=== PATIENT | male | born 1955 | race Caucasian/White ===

== ENCOUNTER 2020-04-14 08:04 | Outpatient (REF) | payer OTHER, SELFPAY ==
[2020-04-14 08:54] LABS: Basophils Absolute Auto 0.1 X10*3/uL (0.0-0.2); Eosinophils Absolute Auto 0.2 X10*3/uL (0.0-0.4); Eosinophils Percent Auto 4.8 % (0-4); Hematocrit 40.1 % (42-52); Hemoglobin 12.9 g/dl (14.0-18.0); Imm Gran Abs Auto 0.01 X10*3/uL (0.00-0.03); Imm Gran Pct Auto 0.2 % (0.0-0.4); Lymphocytes Absolute Auto 1.1 X10*3/uL (1.2-4.9); Lymphocytes Percent Auto 22.2 % (20-40); MANUAL DIFF FLAG NO; Mean Corpuscular HGB Conc 32.2 g/dl (31.0-36.0); Mean Corpuscular Hemoglobin 29.1 pg (27.0-33.0); Mean Corpuscular Volume 90.3 fL (80-98); Mean Platelet Volume 10.4 fL (9.4-12.4); Monocytes Absolute Auto 0.3 X10*3/uL (0.1-1.2); Monocytes Percent Auto 6.3 % (2-11); Neutrophils Absolute Auto 3.3 X10*3/uL (2.0-8.3); Neutrophils Percent Auto 64.5 % (45-73); Platelet Count 273 X10*3/uL (160-400); Red Blood Count 4.44 X10*6/uL (4.60-5.80); Red Cell Distribution Width 13.6 % (11.0-16.0); White Blood Count 5.1 X10*3/uL (4.8-10.8)
[2020-04-14 08:56] LABS: Glucose Urine UA NEG (NEG); Leukocyte Esterase Urine NEG (NEG); Nitrite Urine NEG (NEG); Specific Gravity - Urine 1.025 (1.005-1.025); Urine Blood TRACE (NEG); Urine Ketones NEG (NEG); Urine Protein NEG (NEG-TRACE)
[2020-04-14 09:00] LABS: Appearance Urine CLEAR; Color Urine YELLOW
[2020-04-14 09:05] LABS: Estimated Average Glucose 100 mg/dL; Hemoglobin A1c % 5.1 %
[2020-04-14 09:09] LABS: RBC Urine 0-2 /HPF (0); Squamous Epithelial Cell Urine TRACE /LPF; WBC Urine 0 /HPF (0-4)
[2020-04-14 09:31] LABS: Alanine Aminotransferase 9 U/L (0-40); Albumin Level 4.5 g/dL (3.5-5.0); Alkaline Phosphatase 91 U/L (39-117); Anion Gap 11 (12-20); Aspartate Amino Transferase 11 U/L (5-37); Bilirubin Total 0.9 mg/dL (0.0-1.0); Blood Urea Nitrogen 21 mg/dL (9-16); Calcium 9.4 mg/dL (8.4-10.2); Carbon Dioxide 25 mmol/L (22-29); Chloride 111 mmol/L (96-108); Cholesterol 187 mg/dL; Estimated Glomerular Filt Rate > 60; Glucose Fasting 112 mg/dL (60-99); HDL Cholesterol 39 mg/dL; LDL Cholesterol Calculated 127 mg/dl; Potassium 4.1 mmol/l (3.3-5.1); Sodium 143 mmol/L (135-145); Total Protein 6.6 g/dL (6.5-8.0); Triglycerides 107 mg/dL
[2020-04-14 09:45] LABS: TSH reflex Free T4 0.77 mIU/mL (0.32-4.0)
[2020-04-16 05:40] LABS: Folate 15.6 ng/mL (> or = 4.0); Vitamin B12 1440 pg/mL (200-900)
== END 2020-04-14 08:05 | disposition home or self-care (01) ==
LOC: HO.LAB 08:04
PROVIDERS: PCP Internal Medicine; Visit Provider Internal Medicine
DX: I10 Essential (primary) hypertension (principal); E78.5 Hyperlipidemia, unspecified; R73.01 Impaired fasting glucose; G62.9 Polyneuropathy, unspecified; E53.8 Deficiency of other specified B group vitamins; H44.9 Unspecified disorder of globe; K29.50 Unspecified chronic gastritis without bleeding; E66.3 Overweight
CPT/HCPCS: 36415; 80053; 80061; 81001; 82607; 82746; 83036; 84443; 85025

== ENCOUNTER 2020-05-07 11:23 | Outpatient (REF) | payer OTHER, SELFPAY | END 2020-05-07 11:24 | disposition home or self-care (01) | LOC: HO.LAB 11:23 | PROVIDERS: PCP Internal Medicine; Visit Provider Internal Medicine | DX: Z20.828 Contact with and (suspected) exposure to other viral communicable diseases (principal) | CPT/HCPCS: C9803; U0003 ==

== ENCOUNTER → 2020-07-16 09:57 | Outpatient (BNVA) | payer OTHER, SELFPAY | PROVIDERS: PCP Internal Medicine; Visit Provider Internal Medicine Gastroenterology ==

== ENCOUNTER 2020-09-29 09:03 | Outpatient (REF) | payer OTHER, SELFPAY ==
[2020-09-29 09:42] LABS: MANUAL DIFF FLAG NO
[2020-09-29 09:50] LABS: Basophils Absolute Auto 0.1 X10*3/uL (0.0-0.2); Basophils Percent Auto 1.4 % (0-2); Eosinophils Absolute Auto 0.2 X10*3/uL (0.0-0.4); Eosinophils Percent Auto 2.4 % (0-4); Hemoglobin 13.6 g/dl (14.0-18.0); Imm Gran Abs Auto 0.01 X10*3/uL (0.00-0.03); Imm Gran Pct Auto 0.2 % (0.0-0.4); Lymphocytes Absolute Auto 1.1 X10*3/uL (1.2-4.9); Lymphocytes Percent Auto 16.8 % (20-40); Mean Corpuscular HGB Conc 33.2 g/dl (31.0-36.0); Mean Corpuscular Hemoglobin 28.8 pg (27.0-33.0); Mean Corpuscular Volume 86.9 fL (80-98); Mean Platelet Volume 10.7 fL (9.4-12.4); Monocytes Absolute Auto 0.4 X10*3/uL (0.1-1.2); Monocytes Percent Auto 5.5 % (2-11); Neutrophils Absolute Auto 4.8 X10*3/uL (2.0-8.3); Neutrophils Percent Auto 73.7 % (45-73); Platelet Count 281 X10*3/uL (160-400); Red Blood Count 4.72 X10*6/uL (4.60-5.80); Red Cell Distribution Width 13.3 % (11.0-16.0); White Blood Count 6.6 X10*3/uL (4.8-10.8)
[2020-09-29 10:24] LABS: Alanine Aminotransferase 8 U/L (0-40); Alkaline Phosphatase 93 U/L (39-117); Anion Gap 10 (12-20); Aspartate Amino Transferase 12 U/L (5-37); Bilirubin Total 0.5 mg/dL (0.0-1.0); Blood Urea Nitrogen 18 mg/dL (9-16); Calcium 9.2 mg/dL (8.4-10.2); Carbon Dioxide 27 mmol/L (22-29); Chloride 109 mmol/L (96-108); Cholesterol 194 mg/dL; Estimated Glomerular Filt Rate > 60; Glucose Fasting 109 mg/dL (60-99); HDL Cholesterol 43 mg/dL; LDL Cholesterol Calculated 124 mg/dl; Potassium 4.3 mmol/L (3.3-5.1); Sodium 142 mmol/L (135-145); Total Protein 6.4 g/dL (6.5-8.0); Triglycerides 138 mg/dL
[2020-09-29 10:35] LABS: Glucose Urine UA NEG (NEG); Leukocyte Esterase Urine NEG (NEG); Nitrite Urine NEG (NEG); Urine Blood TRACE (NEG); Urine Ketones NEG (NEG); Urine Protein NEG (NEG-TRACE)
[2020-09-29 10:36] LABS: Appearance Urine CLEAR; Color Urine YELLOW
[2020-09-29 10:46] LABS: TSH reflex Free T4 0.96 uIU/mL (0.32-4.0)
[2020-09-29 10:48] LABS: RBC Urine 0-2 /HPF (0); Squamous Epithelial Cell Urine TRACE /LPF; WBC Urine 0 /HPF (0-4)
[2020-10-01 04:21] LABS: Folate > 20.0 ng/mL (> or = 4.0); Vitamin B12 972 pg/mL (200-900)
== END 2020-09-29 09:04 | disposition home or self-care (01) ==
LOC: HO.LAB 09:03
PROVIDERS: PCP Internal Medicine; Visit Provider Internal Medicine
DX: I10 Essential (primary) hypertension (principal); E53.8 Deficiency of other specified B group vitamins; G62.9 Polyneuropathy, unspecified; K29.50 Unspecified chronic gastritis without bleeding; E78.00 Pure hypercholesterolemia, unspecified; R73.01 Impaired fasting glucose; E66.3 Overweight
CPT/HCPCS: 36415; 80053; 80061; 81001; 81003; 82607; 82746; 84443; 85025

== ENCOUNTER 2020-12-12 10:21 | Outpatient (REF) | payer OTHER, SELFPAY ==
--- NOTE | ~2020-12-12 | XR_ITS ---
EXAMINATION: XR CHEST CLINICAL INFORMATION: Cough. COMPARISON: Chest 10/01/2018 TECHNIQUE: 2 views of the chest were obtained. FINDINGS: The lungs are hyperinflated but clear. The heart size and pulmonary vascularity is normal. No gross bony abnormality seen. XR/XR chest 2V IMPRESSION: Unremarkable chest exam.
== END 2020-12-12 10:22 | disposition home or self-care (01) ==
LOC: HO.HMGCX 10:21
PROVIDERS: PCP Internal Medicine; Visit Provider Nurse Practitioner Family
DX: R05 Cough (principal); R06.2 Wheezing; F17.200 Nicotine dependence, unspecified, uncomplicated
CPT/HCPCS: 71046

== ENCOUNTER 2021-01-30 07:52 | Outpatient (REF) | payer OTHER, SELFPAY ==
[2021-01-30 08:54] LABS: MANUAL DIFF FLAG NO
[2021-01-30 09:02] LABS: Basophils Absolute Auto 0.1 X10*3/uL (0.0-0.2); Basophils Percent Auto 1.1 % (0-2); Eosinophils Absolute Auto 0.2 X10*3/uL (0.0-0.4); Hemoglobin 13.9 g/dl (14.0-18.0); Imm Gran Abs Auto 0.04 X10*3/uL (0.00-0.03); Imm Gran Pct Auto 0.6 % (0.0-0.4); Lymphocytes Absolute Auto 1.6 X10*3/uL (1.2-4.9); Lymphocytes Percent Auto 22.8 % (20-40); Mean Corpuscular HGB Conc 33.1 g/dl (31.0-36.0); Mean Corpuscular Hemoglobin 28.3 pg (27.0-33.0); Mean Corpuscular Volume 85.4 fL (80-98); Mean Platelet Volume 10.2 fL (9.4-12.4); Monocytes Absolute Auto 0.4 X10*3/uL (0.1-1.2); Monocytes Percent Auto 5.7 % (2-11); Neutrophils Absolute Auto 4.7 X10*3/uL (2.0-8.3); Neutrophils Percent Auto 66.8 % (45-73); Platelet Count 296 X10*3/uL (160-400); Red Blood Count 4.92 X10*6/uL (4.60-5.80); Red Cell Distribution Width 13.5 % (11.0-16.0)
[2021-01-30 09:10] LABS: Glucose Urine UA NEG (NEG); Leukocyte Esterase Urine NEG (NEG); Nitrite Urine NEG (NEG); Urine Blood NEG (NEG); Urine Ketones NEG (NEG); Urine Protein TRACE MG/DL (NEG-TRACE)
[2021-01-30 09:12] LABS: Estimated Average Glucose 105 mg/dL; Hemoglobin A1c % 5.3 %
[2021-01-30 09:13] LABS: Appearance Urine CLEAR; Color Urine YELLOW
[2021-01-30 09:39] LABS: Alanine Aminotransferase 11 U/L (0-40); Albumin Level 4.2 g/dL (3.5-5.0); Alkaline Phosphatase 89 U/L (39-117); Anion Gap 12 (12-20); Aspartate Amino Transferase 14 U/L (5-37); Bilirubin Total 0.6 mg/dL (0.0-1.0); Blood Urea Nitrogen 20 mg/dL (9-16); Calcium 9.6 mg/dL (8.4-10.2); Carbon Dioxide 24 mmol/L (22-29); Chloride 109 mmol/L (96-108); Cholesterol 215 mg/dL; Estimated Glomerular Filt Rate 59; Glucose Fasting 100 mg/dL (60-99); HDL Cholesterol 37 mg/dL; LDL Cholesterol Calculated 122 mg/dl; Potassium 4.5 mmol/L (3.3-5.1); Sodium 140 mmol/L (135-145); Total Protein 6.6 g/dL (6.5-8.0); Triglycerides 283 mg/dL
[2021-01-30 10:01] LABS: TSH reflex Free T4 1.94 uIU/mL (0.32-4.0)
[2021-01-30 10:24] LABS: Folate > 20.0 ng/mL (> or = 4.0); Vitamin B12 1198 pg/mL (200-900)
== END 2021-01-30 07:53 | disposition home or self-care (01) ==
LOC: HO.LAB 07:52
PROVIDERS: PCP Internal Medicine; Visit Provider Internal Medicine
DX: I10 Essential (primary) hypertension (principal); E78.00 Pure hypercholesterolemia, unspecified; R73.01 Impaired fasting glucose; E53.8 Deficiency of other specified B group vitamins
CPT/HCPCS: 36415; 80053; 80061; 81003; 82607; 82746; 83036; 84443; 85025

== ENCOUNTER 2021-12-17 07:54 | Outpatient (REF) | payer OTHER, SELFPAY ==
--- NOTE | ~2021-12-17 | XR_ITS ---
EXAMINATION: XR CHEST 2 VIEWS CLINICAL INFORMATION: Cough. COMPARISON: Prior chest radiographs dated 12/12/2020 and 10/01/2018. TECHNIQUE: Frontal and lateral views of the chest were obtained. FINDINGS: The heart, great vessels, pulmonary vasculature and mediastinum are normal. The lungs show no focal infiltrate, effusion or pneumothorax. At the posteromedial right base, a 3.2 x 5.2 x 3.2 cm subpleural, circumscribed mass is newly seen. There is no acute osseous abnormality. XR/XR chest 2V IMPRESSION: There is interim appearance of a 5.2 cm mass at the medial right base. Recommend further evaluation with CT. A preliminary report provided by the [facility] on 12/17/2021.
[2021-12-17 08:34] LABS: MANUAL DIFF FLAG NO
[2021-12-17 09:13] LABS: Basophils Absolute Auto 0.1 X10*3/uL (0.0-0.2); Basophils Percent Auto 1.5 % (0-2); Eosinophils Absolute Auto 0.2 X10*3/uL (0.0-0.4); Eosinophils Percent Auto 3.9 % (0-4); Hematocrit 38.5 % (42.0-52.0); Hemoglobin 12.5 g/dl (14.0-18.0); Imm Gran Abs Auto 0.02 X10*3/uL (0.00-0.03); Imm Gran Pct Auto 0.4 % (0.0-0.4); Lymphocytes Absolute Auto 1.4 X10*3/uL (1.2-4.9); Mean Corpuscular HGB Conc 32.5 g/dl (31.0-36.0); Mean Corpuscular Hemoglobin 28.5 pg (27.0-33.0); Mean Corpuscular Volume 87.7 fL (80.0-98.0); Mean Platelet Volume 11.1 fL (9.4-12.4); Monocytes Absolute Auto 0.3 X10*3/uL (0.1-1.2); Monocytes Percent Auto 5.9 % (2-11); Neutrophils Absolute Auto 3.4 x10*3/uL (2.0-8.3); Neutrophils Percent Auto 63.3 % (45-73); Platelet Count 229 X10*3/uL (160-400); Red Blood Count 4.39 X10*6/uL (4.60-5.80); Red Cell Distribution Width 13.5 % (11.0-16.0); White Blood Count 5.4 X10*3/uL (4.8-10.8)
[2021-12-17 09:25] LABS: Estimated Average Glucose 108 mg/dL; Hemoglobin A1c % 5.4 %
[2021-12-17 09:33] LABS: Appearance Urine CLEAR; Color Urine STRAW; Glucose Urine UA NEG (NEG); Leukocyte Esterase Urine NEG (NEG); Nitrite Urine NEG (NEG); PH 6.5 (5.0-8.0); Urine Blood NEG (NEG); Urine Ketones NEG (NEG); Urine Protein NEG (NEG-TRACE)
[2021-12-17 10:30] LABS: Folate > 20.0 ng/mL (> or = 4.0); Vitamin B12 938 pg/mL (200-900)
[2021-12-17 10:48] LABS: Alanine Aminotransferase 8 U/L (0-40); Alkaline Phosphatase 93 U/L (39-117); Anion Gap 11 (12-20); Aspartate Amino Transferase 11 U/L (5-37); Bilirubin Total 0.6 mg/dL (0.0-1.0); Blood Urea Nitrogen 22 mg/dL (9-16); Calcium 9.3 mg/dL (8.4-10.2); Carbon Dioxide 27 mmol/L (22-29); Chloride 105 mmol/L (96-108); Cholesterol 211 mg/dL; Estimated Glomerular Filt Rate 51; Glucose Fasting 92 mg/dL (60-99); HDL Cholesterol 47 mg/dL; LDL Cholesterol Calculated 135 mg/dl; Potassium 4.9 mmol/L (3.3-5.1); Sodium 138 mmol/L (135-145); Total Protein 6.3 g/dL (6.5-8.0); Triglycerides 147 mg/dL
[2021-12-17 10:51] LABS: TSH reflex Free T4 1.51 uIU/mL (0.32-4.0); Vitamin D 25-OH Total 14.4 ng/mL (>30)
== END 2021-12-17 07:55 | disposition home or self-care (01) ==
LOC: HO.LAB 07:54
PROVIDERS: PCP Internal Medicine; Visit Provider Internal Medicine
DX: J44.9 Chronic obstructive pulmonary disease, unspecified (principal); R05.9 Cough, unspecified; E53.8 Deficiency of other specified B group vitamins; I10 Essential (primary) hypertension; E55.9 Vitamin D deficiency, unspecified; R73.01 Impaired fasting glucose; E78.00 Pure hypercholesterolemia, unspecified
CPT/HCPCS: 36415; 71046; 80053; 80061; 81003; 82306; 82607; 82746; 83036; 84443; 85025

== ENCOUNTER 2022-03-21 12:47 | Outpatient (REF) | payer OTHER, SELFPAY ==
--- NOTE | ~2022-03-21 | XR_ITS ---
EXAMINATION: XR CHEST CLINICAL INFORMATION: Follow-up abnormal chest x-ray COMPARISON: Previous chest x-ray November 2021 TECHNIQUE: 2 views of the chest were obtained. FINDINGS: The cardiac and mediastinal contours are stable. Pulmonary mass in the right lower lobe appears unchanged. The left lung is clear. There is no pleural effusion or pneumothorax. Bony structures are unremarkable. XR/XR chest 2V IMPRESSION: Stable right lower lobe mass from November 2021. Infectious, inflammatory and neoplastic processes should be considered. Further evaluation with chest CT recommended.
== END 2022-03-21 12:48 | disposition home or self-care (01) ==
LOC: HO.XRAY 12:47
PROVIDERS: PCP Internal Medicine; Visit Provider Internal Medicine Gastroenterology
DX: R93.89 Abnormal findings on diagnostic imaging of other specified body structures (principal)
CPT/HCPCS: 71046

== ENCOUNTER 2022-03-22 07:45 | Outpatient (REF) | payer OTHER, SELFPAY ==
[2022-03-22 09:12] LABS: Blood Urea Nitrogen 18 mg/dL (9-16); Estimated Glomerular Filt Rate 58
== END 2022-03-22 07:46 | disposition home or self-care (01) ==
LOC: HO.LAB 07:45
PROVIDERS: PCP Internal Medicine; Visit Provider Internal Medicine
DX: I10 Essential (primary) hypertension (principal)
CPT/HCPCS: 36415; 82565; 84520

== ENCOUNTER 2022-03-24 11:13 | Outpatient (REF) | payer OTHER, SELFPAY ==
--- NOTE | ~2022-03-24 | CT_ITS ---
EXAMINATION: CT CHEST WITH CONTRAST CLINICAL INFORMATION: Abnormal findings on diagnostic imaging. COMPARISON: Chest radiograph from 03/21/2022. Chest radiograph 12/17/2021. TECHNIQUE: Multidetector volumetric CT imaging of the chest was obtained after the administration of 65 mL of Omnipaque 350 intravenous contrast without immediate adverse reactions. Axial MIP volume rendering provided. Sagittal and coronal reformatted images were obtained. This CT examination was performed using dose optimization techniques as appropriate, variously including the following: *Automated exposure control *Adjustment of mA and/or kV according to patient size (this includes techniques or standardized protocols for targeted exams where dose is matched to indication/reason for exam; i.e. extremities or head) *Use of iterative reconstruction technique DLP: 108 mGy-cm FINDINGS: GRAIN SPOUTER: Redemonstration of the opacity at the medial right base. LUNGS: The central airways are patent. Moderate centrilobular and paraseptal emphysema. Partially cavitating right lower lobe mass which is pleural-based. This measures 4 x 3.3 cm. Small amount of gas at the superficial aspect. Irregular margins. Dependent atelectasis bilaterally. No pneumothorax. MEDIASTINUM: Normal heart size. No pericardial effusion. No mediastinal lymphadenopathy. CORONARY ARTERY CALCIFICATION: None visualized on this study. PLEURA: No pleural effusion. AXILLA: No lymphadenopathy. UPPER ABDOMEN: Unremarkable OSSEOUS STRUCTURES: No acute or suspicious osseous abnormality. Mild degenerative changes of the spine. CT/CT chest w IV con IMPRESSION: Partially cavitating right lower lobe mass measuring up to 4 cm . This corresponds to the appearance on the recent prior chest radiograph and the radiograph from 12/17/2021. Consider PET/CT or tissue sampling. Fleischner guidelines were followed.
[2022-03-24] MEDS: iohexoL 350 MG/ML 100 ML INFUS..BTL IV (11:46)
== END 2022-03-24 11:14 | disposition home or self-care (01) ==
LOC: HO.CT 11:13
PROVIDERS: PCP Internal Medicine; Visit Provider Internal Medicine
DX: R93.89 Abnormal findings on diagnostic imaging of other specified body structures (principal)
CPT/HCPCS: 71260; Q9967

== ENCOUNTER → 2022-04-04 09:41 | Outpatient (BNVA) | payer OTHER, SELFPAY | PROVIDERS: PCP Internal Medicine; Visit Provider Surgery | DX: J98.4 Other disorders of lung (principal) | CPT/HCPCS: 99202 ==

== ENCOUNTER 2022-04-09 09:47 | Outpatient (REF) | payer OTHER, SELFPAY ==
--- NOTE | 2022-04-09 08:45 | PFT_ITS ---
INDICATION: COPD and lung nodule. SPIROMETRY: The FEV1 to FVC 70% with an FEV1 of 2.58 L, which is 82% predicted, an FVC of 2.72 L which is 90% predicted. There was a response to bronchodilators noted. To note, the patient does have significant small airways disease. Maximum voluntary ventilation 82% predicted. LUNG VOLUMES: Total lung capacity 82% predicted. DIFFUSION CAPACITY: DLCO 74% predicted. COMPARISONS: None. INTERPRETATION: There is an obstructive ventilatory defect consistent with mild COPD. The patient did have a response to bronchodilators noted and also evidence of small airways disease. Now the maximum voluntary ventilation was low normal and the patient also has a low normal total lung capacity. Diffusion capacity appears to have a mild diffusion impairment likely secondary to the above. Clinical correlation warranted. MD LISANDRO Davenport/LJ / [id number]
== END 2022-04-09 09:48 | disposition home or self-care (01) ==
LOC: HO.RESP 09:47
PROVIDERS: PCP Internal Medicine; Visit Provider Surgery
DX: Z01.818 Encounter for other preprocedural examination (principal); J98.4 Other disorders of lung
CPT/HCPCS: 94060; 94727; 94729

== ENCOUNTER → 2022-05-16 09:36 | Outpatient (BNVA) | payer OTHER, SELFPAY | PROVIDERS: PCP Internal Medicine; Visit Provider Surgery | DX: C34.31 Malignant neoplasm of lower lobe, right bronchus or lung (principal) | CPT/HCPCS: 99212 ==

== ENCOUNTER 2022-05-20 07:59 | Outpatient (REF) | payer OTHER, SELFPAY ==
--- NOTE | ~2022-05-20 | PE_ITS ---
EXAMINATION: WHOLE BODY PET/CT IMAGING CLINICAL INDICTION: Lung mass. COMPARISON: Comparison with diagnostic CT of the chest from 03/24/2022. TECHNIQUE: Dedicated coincidence imaging from the base of the skull to the thighs. 15.6 mCi F-18 deoxyglucose. FINDINGS: Partially visualized brain activity is felt to be within normal limits. In the neck activity is within normal limits. In the mediastinum there is a very small focus of activity on image 78 of 267 in the right hilar region. This measures mildly higher than the adjacent blood pool. 2.8 SUV max. Small central node here cannot be excluded. Imaging of the lung mitchell. Right lung: There is intense circumferential uptake in the right lower lobe lung mass which is showing more central air density. Intense uptake at 19 SUV max. No other suspicious focus on the right. On the left no suspicious focus. In the abdomen pelvis there is normal low-level liver and splenic uptake. Normal renal activity. Normal low-level bowel activity. There is mild activity in the right side of the prostate which is prominent in size. 4.1 SUV max. Review of the bone windows does not demonstrate suspicion for a bony lesion. PET/PET CT fusion skull to thigh IMPRESSION: Abnormal increased activity in the right lower lobe pleural-based lesion. This lesion shows some increasing central air but thick wall which is showing significant uptake. This may well represent necrotic tumor. Infection would need to be a consideration. The only other suspicious finding in the chest here is a small mild focus in the right hilar region. This could be reactive but early local metastatic disease could not be excluded. Mild asymmetric uptake in the right side of the prostate. Tumor here cannot be excluded. Findings may suggest prostatitis. Recommend urologic consultation.
== END 2022-05-20 08:00 | disposition home or self-care (01) ==
LOC: HO.PET 07:59
PROVIDERS: PCP Internal Medicine; Visit Provider Surgery
DX: Z13.89 Encounter for screening for other disorder (principal)

== ENCOUNTER 2022-10-06 09:57 | Outpatient (REF) | payer OTHER, SELFPAY ==
[2022-10-06 10:13] LABS: MANUAL DIFF FLAG NO
[2022-10-06 10:46] LABS: Basophils Percent Auto 0.7 % (0-2); Eosinophils Absolute Auto 0.1 X10*3/uL (0.0-0.4); Eosinophils Percent Auto 2.9 % (0-4); Hematocrit 22.1 % (42.0-52.0); Imm Gran Abs Auto 0.02 X10*3/uL (0.00-0.03); Imm Gran Pct Auto 0.7 % (0.0-0.4); Lymphocytes Absolute Auto 1.5 X10*3/uL (1.2-4.9); Mean Corpuscular HGB Conc 33.5 g/dl (31.0-36.0); Mean Corpuscular Hemoglobin 31.1 pg (27.0-33.0); Mean Corpuscular Volume 92.9 fL (80.0-98.0); Mean Platelet Volume 10.6 fL (9.4-12.4); Monocytes Absolute Auto 0.2 X10*3/uL (0.1-1.2); Monocytes Percent Auto 6.8 % (2-11); Neutrophils Percent Auto 35.9 % (45-73); Platelet Count 101 X10*3/uL (160-400); Red Blood Count 2.38 X10*6/uL (4.60-5.80); Red Cell Distribution Width 16.9 % (11.0-16.0); White Blood Count 2.8 X10*3/uL (4.8-10.8)
[2022-10-06 10:50] LABS: Hemoglobin 7.4 g/dl (14.0-18.0)
[2022-10-06 11:16] LABS: Alanine Aminotransferase 9 U/L (0-40); Alkaline Phosphatase 74 U/L (39-117); Anion Gap 12 (12-20); Aspartate Amino Transferase 12 U/L (5-37); Bilirubin Total 0.4 mg/dL (0.0-1.0); Blood Urea Nitrogen 27 mg/dL (9-16); Calcium 8.4 mg/dL (8.4-10.2); Carbon Dioxide 21 mmol/L (22-29); Chloride 112 mmol/L (96-108); Cholesterol 162 mg/dL; Estimated Glomerular Filt Rate 38; Glucose Fasting 90 mg/dL (60-99); HDL Cholesterol 34 mg/dL; LDL Cholesterol Calculated 89 mg/dl; Potassium 4.5 mmol/L (3.3-5.1); Sodium 140 mmol/L (135-145); Triglycerides 198 mg/dL
[2022-10-06 11:32] LABS: Folate > 20.0 ng/mL (> or = 4.0); Vitamin B12 1577 pg/mL (200-900); Vitamin D 25-OH Total 7.1 ng/mL (>30)
[2022-10-06 12:04] LABS: Appearance Urine Clear; Color Urine Yellow; Glucose Urine UA Negative (Negative); Leukocyte Esterase Urine Negative (Negative); Nitrite Urine Negative (Negative); PH 5.5 (5.0-9.0); Specific Gravity - Urine 1.015 (1.005-1.025); UMIC TRIGGER UACC YES; Urine Blood Negative (Negative); Urine Ketones Negative (Negative); Urine Protein 30 (1+) mg/dL (Neg-Trace)
[2022-10-06 12:08] LABS: Bacteria Urine None Seen (None Seen); Hyaline Casts Urine 0-2 /LPF (0-2); RBC Urine 0-2 /HPF (0-2); Squamous Epithelial Cell Urine 0-2 /HPF (0-2); WBC Urine 0-5 /HPF (0-5)
== END 2022-10-06 09:58 | disposition home or self-care (01) ==
LOC: HO.LAB 09:57
PROVIDERS: PCP Internal Medicine; Visit Provider Internal Medicine
DX: E55.9 Vitamin D deficiency, unspecified (principal); E53.8 Deficiency of other specified B group vitamins; E78.00 Pure hypercholesterolemia, unspecified; I10 Essential (primary) hypertension
CPT/HCPCS: 36415; 80053; 80061; 81001; 81003; 82306; 82607; 82746; 85025

== ENCOUNTER 2023-01-16 10:28 | Outpatient (AMB) | payer MEDICARE, OTHER, SELFPAY ==
--- NOTE | 2023-01-16 10:36 | A.OFFVIS_ITS ---
Intake Vital Signs 01/16/23 10:37 Height 5 ft 7 in Weight 158 lb BMI 24.7 BP 130/74 Blood Pressure Location Lt brachial Position Sitting Pulse 80 Pulse Oximetry (%) 99 Intake Visit Reasons: 6 month follow up Allergies No Known Allergies [No Known Allergies*] Allergy (Verified 01/16/23 10:38) Medication List - Last Reconciled 01/17/23 by Moiz Cantu MD albuterol sulfate 90 mcg/actuation 2 puffs inhalation Q4-6H PRN 90 days amlodipine 5 mg PO DAILY 90 days bisacodyl (Dulcolax (bisacodyl)) 10 mg (2 x 5 mg) PO ONCE 5 days cyanocobalamin (vitamin B-12) ER 1,000 mcg PO DAILY 90 days folic acid 1 mg PO DAILY ibuprofen 600 mg PO DAILY PRN losartan 100 mg (2 x 50 mg) PO DAILY omeprazole 20 mg PO BID 90 days polyethylene glycol 3350 (Miralax) 17 grams PO DAILY 1 day umeclidinium 62.5 mcg/actuation (Incruse Ellipta) 1 inh inhalation DAILY 90 days HPI 6 month follow up HPI Details 67-year-old male former smoker who quit in November of 2021 who initially had a chest x-ray done for a chronic cough in November of 2021 which showed a right- sided basilar posterior mass.? Eventually this was followed up with a CT scan of the chest which was done 03/24/2022 which shows a 4 cm partially cavitating and spiculated mass in the right lower lobe.? There is no mediastinal lymphadenopathy and no pleural fluid.? On 05/06/2022 he underwent a navigational bronchoscopy with biopsy and endobronchial ultrasound for mediastinal staging.? The biopsy of the right lower lobe nodule was positive for adenocarcinoma and all mediastinal lymph nodes sampled were negative for malignancy.? He had a PET scan which showed increased uptake in the mass and possibly right hilum but not elsewhere. ? He did have pulmonary function testing on 04/09/2022 which shows an FEV1 of 83% of predicted and a DLCO VA of 88% of predicted.? On 05/20/22 he underwent a davinci RLLobectomy and mediastinal LA and recovered quite well being discharged on POD#2. 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 He did get adjuvant chemotherapy under Dr. Octaviano Johnsons care and did well with that. CT scan done at [facility] shows a small nodule in the RUL but no LA or pleural fluid. 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 He denies chest pain shortness of breath cough or hemoptysis.? He denies any new neurologic symptoms.? He tells me he can easily go up a flight or 2 of stairs without stopping.? He does walk from his house to the store which is maybe a quarter of a mi every day. ? ? [facility] Medical History Benign essential hypertension Chronic gastritis without bleeding Chronic obstructive pulmonary disease (COPD) Cough Folate deficiency Impaired fasting glucose Neuropathy Overweight (BMI 25.0-29.9) Personal history of nicotine dependence Primary cancer of right lower lobe of lung (~04/2022) Pure hypercholesterolemia Tubular adenoma of colon (~2011) Vitamin B12 deficiency Surgical History History of bronchoscopy History of colonoscopy History of esophagogastroduodenoscopy (EGD) History of laparoscopic cholecystectomy History of lobectomy of lung Family History Father Hypertension Mother Lung cancer Maternal Aunt Breast cancer Family/Other Hypertension Heart disease Social History Housing: House Alcohol intake: never Patient Tobacco Use Status: Former Tobacco user e-Cigarette/Vaping Use: Never Used Second Hand Smoke Exposure: Yes service: No Current occupational status: unemployed Cognitive needs: No Hearing needs: No Vision needs: Yes Physical Exam Vital Signs: Last Vital Signs Pulse 80 01/16/23 10:37 BP 130/74 01/16/23 10:37 Pulse Ox 99 01/16/23 10:37 BMI result Body Mass Index 24.7 nad rrr ctab wounds well healed no LE edema Assessment & Plan Assessment & Plan (1) Primary cancer of right lower lobe of lung: Onset Date: ~04/2022 Comment: (Stage IIB, 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 I agree with a 3 to 4 month follow up chest ct as arranged by Dr. De at [facility]. I will plan to see him after that at that time. I went over the pathology, and surveillance plan after surgery for a lung cancer which is a ct scan every 6 months for the first 2 years postoperatively followed by yearly for 3 years after that as long as there are no new changes. His next scan is in 3 months due to the findings on his most recent scan. All questions were answered. (2) Chronic obstructive pulmonary disease (COPD): Code(s): J44.9 - Chronic obstructive pulmonary disease, unspecified Qualifiers: COPD type: unspecified COPD Qualified Code(s): J44.9 - Chronic obstructive pulmonary disease, unspecified Coding Level of Care Code Est Pt Level 5 (22506) Diagnoses Primary cancer of right lower lobe of lung C34.31 Chronic obstructive pulmonary disease (COPD) J44.9 COPD type: unspecified COPD Time Spent (min) 50
[2023-01-16 10:37] VITALS: BP 130/74; PULSE 80; O2SAT 99; BMI 24.7
== END 2023-01-16 10:46 | disposition home or self-care (01) ==
PROVIDERS: PCP Internal Medicine; Visit Provider Surgery
DX: C34.31 Malignant neoplasm of lower lobe, right bronchus or lung (principal); J44.9 Chronic obstructive pulmonary disease, unspecified

== ENCOUNTER → 2023-01-16 10:28 | Outpatient (BNVA) | payer OTHER, SELFPAY | PROVIDERS: PCP Internal Medicine; Visit Provider Surgery | DX: C34.31 Malignant neoplasm of lower lobe, right bronchus or lung (principal); Z87.891 Personal history of nicotine dependence; Z92.21 Personal history of antineoplastic chemotherapy; Z90.2 Acquired absence of lung [part of]; J44.9 Chronic obstructive pulmonary disease, unspecified | CPT/HCPCS: 99212 ==

== ENCOUNTER 2023-02-07 07:59 | Outpatient (REF) | payer MEDICARE, OTHER, SELFPAY ==
[2023-02-07 08:22] LABS: MANUAL DIFF FLAG NO
[2023-02-07 09:03] LABS: Basophils Absolute Auto 0.1 X10*3/uL (0.0-0.2); Basophils Percent Auto 1.7 % (0-2); Eosinophils Absolute Auto 0.2 X10*3/uL (0.0-0.4); Eosinophils Percent Auto 3.6 % (0-4); Hematocrit 34.4 % (42.0-52.0); Hemoglobin 10.8 g/dl (14.0-18.0); Imm Gran Abs Auto 0.01 X10*3/uL (0.00-0.03); Imm Gran Pct Auto 0.2 % (0.0-0.4); Lymphocytes Absolute Auto 1.9 X10*3/uL (1.2-4.9); Lymphocytes Percent Auto 35.8 % (20-40); Mean Corpuscular HGB Conc 31.4 g/dl (31.0-36.0); Mean Corpuscular Volume 92.2 fL (80.0-98.0); Mean Platelet Volume 10.3 fL (9.4-12.4); Monocytes Absolute Auto 0.4 X10*3/uL (0.1-1.2); Monocytes Percent Auto 7.4 % (2-11); Neutrophils Absolute Auto 2.7 x10*3/uL (2.0-8.3); Neutrophils Percent Auto 51.3 % (45-73); Platelet Count 238 X10*3/uL (160-400); Red Blood Count 3.73 X10*6/uL (4.60-5.80); Red Cell Distribution Width 13.6 % (11.0-16.0); White Blood Count 5.3 X10*3/uL (4.8-10.8)
[2023-02-07 09:04] LABS: Appearance Urine Clear; Color Urine Yellow; Glucose Urine UA Negative (Negative); Leukocyte Esterase Urine Negative (Negative); Nitrite Urine Negative (Negative); PH 5.5 (5.0-9.0); Urine Blood Negative (Negative); Urine Ketones Negative (Negative); Urine Protein Negative (Neg-Trace)
[2023-02-07 09:19] LABS: Alanine Aminotransferase 9 U/L (0-40); Albumin Level 3.9 g/dL (3.5-5.0); Alkaline Phosphatase 97 U/L (39-117); Anion Gap 14 (12-20); Aspartate Amino Transferase 13 U/L (5-37); Bilirubin Total 0.5 mg/dL (0.0-1.0); Blood Urea Nitrogen 18 mg/dL (9-16); Calcium 9.1 mg/dL (8.4-10.2); Carbon Dioxide 23 mmol/L (22-29); Chloride 109 mmol/L (96-108); Estimated Glomerular Filt Rate 36; Glucose Fasting 92 mg/dL (60-99); Potassium 4.5 mmol/L (3.3-5.1); Sodium 141 mmol/L (135-145); Total Protein 6.5 g/dL (6.5-8.0)
== END 2023-02-07 08:00 | disposition home or self-care (01) ==
LOC: HO.LAB 07:59
PROVIDERS: PCP Internal Medicine; Visit Provider Internal Medicine
DX: E78.00 Pure hypercholesterolemia, unspecified (principal); R30.0 Dysuria; I10 Essential (primary) hypertension
CPT/HCPCS: 36415; 80053; 81003; 85025

== ENCOUNTER 2023-02-09 09:23 | Outpatient (AMB) | payer MEDICARE, OTHER, SELFPAY ==
[2023-02-09 09:26] VITALS: BP 116/70; PULSE 78; O2SAT 97; BMI 24.2
--- NOTE | 2023-02-09 09:26 | MHC.PC.OV ---
Vital Signs 02/09/23 09:26 Height 5 ft 7 in Weight 154 lb 6 oz BMI 24.2 BP 116/70 Blood Pressure Location Lt brachial Position Sitting Pulse 78 Pulse Source Pulse Oximeter Pulse Oximetry (%) 97 Oxygen Delivery Method Room Air Intake Visit Reasons: lung cancer, hyperlipidemia, HTN Drug And Alcohol Treatment Specialist Required: No Accompanied by: Self / Same As Patient Allergies No Known Allergies [No Known Allergies*] Allergy (Verified 02/09/23 09:50) Medication List - Last Reconciled 02/09/23 by Dario Reed MD albuterol sulfate 90 mcg/actuation 2 puffs inhalation Q4-6H PRN 90 days amlodipine 5 mg PO DAILY 90 days bisacodyl (Dulcolax (bisacodyl)) 10 mg (2 x 5 mg) PO ONCE 5 days cyanocobalamin (vitamin B-12) ER 1,000 mcg PO DAILY 90 days folic acid 1 mg PO DAILY ibuprofen 600 mg PO DAILY PRN losartan 100 mg (2 x 50 mg) PO DAILY omeprazole 20 mg PO BID 90 days polyethylene glycol 3350 (Miralax) 17 grams PO DAILY 1 day tiotropium bromide 1.25 mcg/actuation (Spiriva Respimat) 2 puffs inhalation DAILY Tobacco use date assessed: 02/09/23 Fall risk assessment: No Falls in past year Last assessed Fall Risk: 02/09/23 Dental Screening Dental Screen Date: 02/09/23 Did you have a dental visit in the last 12 months?: No Did you have a dental problem in the last 6 months where you did not have access to dental care?: No Was dental information given to patient?: No HPI lung cancer, hyperlipidemia, HTN HPI Details Patient comes in today for his follow up visit States that he feels okay He denies any headaches or dizziness Denies any chest pains, no SOB No nausea/vomiting, no abdominal pain No change in bowel habits noted Had his follow up labs done a couple of days ago - to discuss his results Was seen for follow up by oncology and by thoracic surgery over the past month or two - has been advised that he is doing well and he is scheduled for a repeat chest CT in 2 to 3 months for continuing surveillance of his lung cancer He is also scheduled to see nephrology in a couple of weeks for further evaluation/consultation regarding his CKD [facility] Medical History (Updated 02/09/23 @ 10:10 by Dario Reed MD) Benign essential hypertension Chronic gastritis without bleeding Chronic kidney disease, stage III (moderate) Chronic obstructive pulmonary disease (COPD) Cough Folate deficiency Impaired fasting glucose Neuropathy Overweight (BMI 25.0-29.9) Personal history of nicotine dependence Primary cancer of right lower lobe of lung (~04/2022) Pure hypercholesterolemia Tubular adenoma of colon (~2011) Vitamin B12 deficiency Surgical History History of bronchoscopy History of colonoscopy History of esophagogastroduodenoscopy (EGD) History of laparoscopic cholecystectomy History of lobectomy of lung Family History Father Hypertension Mother Lung cancer Maternal Aunt Breast cancer Family/Other Hypertension Heart disease Social History Housing: House Alcohol intake: never Patient Tobacco Use Status: Former Tobacco user e-Cigarette/Vaping Use: Never Used Second Hand Smoke Exposure: Yes service: No Current occupational status: unemployed Cognitive needs: No Hearing needs: No Vision needs: Yes Questionnaire PHQ-9 Over the last 2 weeks, how often have you been bothered by any of the following problems? 1. Little interest or pleasure in doing things: not at all 2. Feeling down, depressed, or hopeless: not at all 3. Trouble falling or staying asleep, or sleeping too much: not at all 4. Feeling tired or having little energy: not at all 5. Poor appetite or overeating: not at all 6. Feeling bad about yourself - or that you are a failure or have let yourself or your family down: not at all 7. Trouble concentrating on things, such as reading the newspaper or watching television: not at all 8. Moving or speaking so slowly that other people could have noticed. Or the opposite - being so fidgety or restless that you have been moving around a lot more than usual: not at all 9. Thoughts that you would be better off or of hurting yourself in some way: not at all Total score: 0 Depression Screening Interpretation: Negative 15737 - PHQ-9 Billing: Yes Source: Developed by Ryan Araizaet B.W. Juwan, Tom Will and colleagues, with an educational blayne from [employer]. Thrive Questionnaire Date Thrive assessed: 02/09/23 I am a: Patient What is your living situation today?: I have a steady place to live Within the past 12 months, did the food you bought not last and you didn't have the money to get more?: Never true Within the past 12 months, did you worry whether your food would run out before you got money to buy more?: Never true Do you have trouble paying for medicines?: No Do you have trouble getting transportation to medical appointments?: No Do you have trouble paying your heating and electricity bill?: No Do you have trouble taking care of your child, family member or friend?: No Do you have trouble with day-to-day activities such as bathing, preparing meals, shopping, managing finances, etc.?: No Are you currently unemployed and looking for a job?: No Are you interested in more education?: No Please select the resources that you would like help with: None Currently or been in a relationship where the following occur: no concerns reported AUDIT C Alcohol Use Questionnaire (AUDIT-C) 1. How often do you have a drink containing alcohol?: Never 3. How often do you have six or more drinks on one occasion?: Never Total Score: 0 Score Reviewed/Action Taken: Yes ZACH-7 AMB Questionnaire ZACH-7 Date ZACH - 7 assessed: 02/09/23 Feeling nervous, anxious, or on edge: 0 = Not at all Not being able to stop or control worryin = Not at all Worrying too much about different things: 0 = Not at all Trouble relaxin = Not at all Being so restless that it is hard to sit still: 0 = Not at all Becoming easily annoyed or irritable: 0 = Not at all Feeling afraid as if something awful might happen: 0 = Not at all Total ZACH-7 score (0-4 normal; 5-9 mild; 10-14 moderate; 15-21 severe): 0 Source: Developed by Drs. Dayron Noriega, Batool Echeverria, Tom Will and colleagues, with an educational blayne from [employer]. Review of Systems Const Denies chills, Denies fatigue, Denies fever(s) and Denies headache(s) ENT Denies dysphagia, Denies dizziness, Denies otalgia, Denies headache(s), Denies neck pain, Denies odynophagia and Denies sore throat Card Denies chest pain, Denies palpitations and Denies dyspnea Resp Denies cough and Denies dyspnea GI Denies abdominal pain, Denies constipation, Denies dysphagia, Denies heartburn, Denies diarrhea, Denies nausea, Denies odynophagia and Denies vomiting Denies dysuria, Denies nocturia and Denies urinary frequency Musc Denies neck pain Neuro Denies dizziness and Denies headache(s) Endo Denies fatigue and Denies palpitations Physical exam (Primary Care) Vital Signs: Last Vital Signs Pulse 78 02/09/23 09:26 BP 116/70 02/09/23 09:26 Pulse Ox 97 02/09/23 09:26 Oxygen Delivery Method Room Air 02/09/23 09:26 BMI result Body Mass Index 24.2 Tobacco/Smoking Status: Tobacco use Status Tobacco use date assessed 02/09/23 02/09/23 09:31 Patient Tobacco Use Status Former Tobacco user 02/09/23 09:31 e-Cigarette/Vaping Use Never Used 02/09/23 09:31 PHQ-9: PHQ-9 Score PHQ-9: Total score 0 02/09/23 09:31 Depression Screening Interpretation: Negative Thrive Assessment: Date of Thrive Assessment Date Thrive assessed 02/09/23 02/09/23 09:31 Currently or been in a relationship where the following occur: no concerns reported Const General: no acute distress and alert HENMT Ears: TM's normal bilaterally and EAC's normal Throat: Yes posterior oropharynx normal and Yes tonsils normal (no TP congestion) Neck Neck: Yes no lymphadenopathy and Yes supple Resp Auscultation: clear to auscultation bilaterally, no rales and no wheezes Cardio Rate: regular rate Rhythm: regular rhythm Heart sounds: no murmurs GI Palpation (GI): Soft to palpation and nontender Auscultation: normal bowel sounds Extrem General: Yes no clubbing, cyanosis or edema Results Reviewed Results Reviewed: Laboratory Tests 02/07/23 02/07/23 08:21 08:21 WBC 5.3 Hgb 10.8 L D Hct 34.4 L D Plt Count 238 D Sodium 141 Potassium 4.5 Creatinine 1.91 H Estimated GFR 36 Fasting Glucose 92 Calcium 9.1 D AST 13 ALT 9 Assessment and Plan Assessment & Plan (1) Primary cancer of right lower lobe of lung: Onset Date: ~04/2022 Comment: (Stage IIB, 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, pT3 pNo or stage IIB Patient also completed chemotherapy for his lung cancer a few months ago Is scheduled for repeat chest CT in 2 to 3 months for follow up; will be getting follow up chest CT every 6 months x 2 years, then repeat chest CT every 2 to 3 years if imaging studies remain negative Follow up with oncology and with thoracic surgery as scheduled for continuing surveillance (2) Anemia: Code(s): D64.9 - Anemia, unspecified Qualifiers: Anemia type: other cause Other causes of anemia: antineoplastic chemotherapy Qualified Code(s): D64.81 - Anemia due to antineoplastic chemotherapy; T45.1X5A - Adverse effect of antineoplastic and immunosuppressive drugs, initial encounter Plan: Patient is still anemic on his recent labs (H/H = 10.8/34.4) but these have improved significantly from his previous CBC Is most likely anemia of chronic disease (due to his CKD) He no longer has the recurrent dizzy spells that he had a few months ago Will recheck his labs and CBC in 3 months for follow up (3) Chronic kidney disease, stage III (moderate): Code(s): N18.30 - Chronic kidney disease, stage 3 unspecified Qualifiers: Chronic kidney disease stage 3 subtype: stage 3b (GFR 30-44) Qualified Code(s): N18.32 - Chronic kidney disease, stage 3b Plan: Patient's renal function has declined significantly over the past couple of years but this appears to have stabilized recently He is scheduled to see nephrology in a couple of weeks for further evaluation and management Is advised to avoid taking any NSAIDs at this time; may take Tylenol instead for pain PRN (4) Chronic obstructive pulmonary disease (COPD): Code(s): J44.9 - Chronic obstructive pulmonary disease, unspecified Qualifiers: COPD type: unspecified COPD Qualified Code(s): J44.9 - Chronic obstructive pulmonary disease, unspecified Plan: Continue Spiriva Respimat 1.25 mg 2 inhalations once a day and Albuterol HFA 2 puffs 4 times a day as needed Was previously on Incruse Ellipta but had to be switched back to Spiriva due to formulary restrictions (5) Benign essential hypertension: Code(s): I10 - Essential (primary) hypertension Plan: Reinforced low sodium diet - goal is systolic BP of at least 130 mm or less Continue Losartan 100 mg QD Amlodipine 5 mg QD was HELD at his last visit due to low BP and recurrent dizziness/orthostasis Is advised to continue holding his Amlodipine for now but discussed that depending on his renal function, nephrology may decide to take his off Losartan and switch him back to Amlodipine so he should keep his Amlodipine on hand for now Patient is instructed to continue monitoring his BP regularly (6) Pure hypercholesterolemia: Code(s): E78.00 - Pure hypercholesterolemia, unspecified Plan: Results of his labs done a couple of days ago reviewed and discussed with patient Reinforced low cholesterol diet Will recheck his labs and fasting lipids in 3 months for follow up (7) Impaired fasting glucose: Code(s): R73.01 - Impaired fasting glucose Plan: HgbA1c was normal at 5.34% when checked back in November 2021 Reinforced low calorie diet/exercise as tolerated (8) Chronic gastritis without bleeding: Code(s): K29.50 - Unspecified chronic gastritis without bleeding Qualifiers: Gastritis type: unspecified gastritis Qualified Code(s): K29.50 - Unspecified chronic gastritis without bleeding Plan: S/P EGD in September 2018 Continue Omeprazole 20 mg BID Follow up with GI (Dr. 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 Panel Fast 3 Months E78.00 - Pure hypercholesterolemia, unspecified IRON PROFILE 3 Months D50.9 - Iron deficiency anemia, unspecified Lipid Panel 3 Months E78.00 - Pure hypercholesterolemia, unspecified TSH reflex Free T4 3 Months E78.00 - Pure hypercholesterolemia, unspecified Vitamin D 25-OH Total 3 Months E55.9 - Vitamin D deficiency, unspecified Complete Blood Count Auto Diff 3 Months I10 - Essential (primary) hypertension UA CC w/rflx Micro + Cult 3 Months R30.0 - Dysuria Coding Level of Care Code Est Pt Level 4 (82386) Diagnoses Primary cancer of right lower lobe of lung C34.31 Anemia D64.81; T45.1X5A Anemia type: other cause Other causes of anemia: antineoplastic chemotherapy Chronic kidney disease, stage III (moderate) N18.32 Chronic kidney disease stage 3 subtype: stage 3b (GFR 30-44) Chronic obstructive pulmonary disease (COPD) J44.9 COPD type: unspecified COPD Benign essential hypertension I10 Pure hypercholesterolemia E78.00 Impaired fasting glucose R73.01 Chronic gastritis without bleeding K29.50 Gastritis type: unspecified gastritis Neuropathy G62.9 Vitamin B12 deficiency E53.8 Folate deficiency E53.8
== END 2023-02-09 10:02 | disposition home or self-care (01) ==
PROVIDERS: PCP Internal Medicine; Visit Provider Internal Medicine
DX: I12.9 Hypertensive chronic kidney disease with stage 1 through stage 4 chronic kidney disease, or unspecified chronic kidney disease (principal); C34.31 Malignant neoplasm of lower lobe, right bronchus or lung; N18.32 Chronic kidney disease, stage 3b; J44.9 Chronic obstructive pulmonary disease, unspecified; K29.50 Unspecified chronic gastritis without bleeding; D64.81 Anemia due to antineoplastic chemotherapy; T45.1X5A Adverse effect of antineoplastic and immunosuppressive drugs, initial encounter; E78.00 Pure hypercholesterolemia, unspecified; R73.01 Impaired fasting glucose; G62.9 Polyneuropathy, unspecified; E53.8 Deficiency of other specified B group vitamins
CPT/HCPCS: 99214

== ENCOUNTER 2023-05-08 08:52 | Outpatient (REF) | payer MEDICARE, OTHER, SELFPAY ==
[2023-05-08 09:28] LABS: MANUAL DIFF FLAG NO
[2023-05-08 10:04] LABS: Basophils Absolute Auto 0.1 X10*3/uL (0.0-0.2); Basophils Percent Auto 1.7 % (0-2); Eosinophils Absolute Auto 0.3 X10*3/uL (0.0-0.4); Eosinophils Percent Auto 5.2 % (0-4); Hematocrit 35.1 % (42.0-52.0); Hemoglobin 11.5 g/dl (14.0-18.0); Imm Gran Abs Auto 0.02 X10*3/uL (0.00-0.03); Imm Gran Pct Auto 0.3 % (0.0-0.4); Lymphocytes Absolute Auto 1.2 X10*3/uL (1.2-4.9); Lymphocytes Percent Auto 20.2 % (20-40); Mean Corpuscular HGB Conc 32.8 g/dl (31.0-36.0); Mean Corpuscular Hemoglobin 29.7 pg (27.0-33.0); Mean Corpuscular Volume 90.7 fL (80.0-98.0); Mean Platelet Volume 10.4 fL (9.4-12.4); Monocytes Absolute Auto 0.4 X10*3/uL (0.1-1.2); Monocytes Percent Auto 5.8 % (2-11); Neutrophils Percent Auto 66.8 % (45-73); Platelet Count 241 X10*3/uL (160-400); Red Blood Count 3.87 X10*6/uL (4.60-5.80); Red Cell Distribution Width 13.7 % (11.0-16.0)
[2023-05-08 10:41] LABS: Alanine Aminotransferase 7 U/L (0-40); Albumin Level 4.4 g/dL (3.5-5.0); Alkaline Phosphatase 114 U/L (39-117); Anion Gap 11 (12-20); Aspartate Amino Transferase 13 U/L (5-37); Bilirubin Total 0.8 mg/dL (0.0-1.0); Blood Urea Nitrogen 15 mg/dL (9-16); Calcium 9.8 mg/dL (8.4-10.2); Carbon Dioxide 24 mmol/L (22-29); Chloride 114 mmol/L (96-108); Cholesterol 172 mg/dL (<200); Estimated Glomerular Filt Rate 53; Glucose Fasting 99 mg/dL (60-99); HDL Cholesterol 44 mg/dL (>40); Iron 37 mcg/dL (45-160); LDL Cholesterol Calculated 106 mg/dL (<100); Percent Iron Saturation 16 % (15-50); Sodium 145 mmol/L (135-145); Total Iron Binding Capacity 226 mcg/dL (228-428); Total Protein 6.9 g/dL (6.5-8.0); Triglycerides 112 mg/dL (<150); Unsaturated Iron Binding 189 ug/dL
[2023-05-08 11:04] LABS: TSH reflex Free T4 0.84 uIU/mL (0.32-4.0); Vitamin D 25-OH Total 11.2 ng/mL (>30)
[2023-05-08 11:10] LABS: Appearance Urine Clear; Color Urine Yellow; Glucose Urine UA Negative (Negative); Leukocyte Esterase Urine Negative (Negative); Nitrite Urine Negative (Negative); Urine Blood Negative (Negative); Urine Ketones Negative (Negative); Urine Protein Negative (Neg-Trace)
== END 2023-05-08 08:53 | disposition home or self-care (01) ==
LOC: HO.LAB 08:52
PROVIDERS: PCP Internal Medicine; Visit Provider Internal Medicine
DX: I10 Essential (primary) hypertension (principal); E55.9 Vitamin D deficiency, unspecified; E78.00 Pure hypercholesterolemia, unspecified; D50.9 Iron deficiency anemia, unspecified; R30.0 Dysuria
CPT/HCPCS: 36415; 80053; 80061; 81003; 82306; 83540; 84443; 85025

== ENCOUNTER 2023-05-11 09:18 | Outpatient (AMB) | payer MEDICARE, OTHER, SELFPAY ==
[2023-05-11 09:20] VITALS: BP 120/68; PULSE 57; O2SAT 97; BMI 24.6
--- NOTE | 2023-05-11 09:20 | A.OFFPC_ITS ---
Vital Signs 05/11/23 09:20 Height 5 ft 7 in Weight 157 lb BMI 24.6 BP 120/68 Blood Pressure Location Lt brachial Position Sitting Pulse 57 Pulse Source Pulse Oximeter Pulse Oximetry (%) 97 Oxygen Delivery Method Room Air Intake Visit Reasons: hyperlipidemia, CKD, lung cancer, GERD [employer] Required: No Accompanied by: Self / Same As Patient Allergies No Known Allergies [No Known Allergies*] Allergy (Verified 05/11/23 09:46) Medication List - Last Reconciled 05/11/23 by Dario Reed MD albuterol sulfate 90 mcg/actuation 2 puffs inhalation Q4-6H PRN 90 days bisacodyl (Dulcolax (bisacodyl)) 10 mg (2 x 5 mg) PO ONCE 5 days cyanocobalamin (vitamin B-12) ER 1,000 mcg PO DAILY 90 days folic acid 1 mg PO DAILY losartan 50 mg PO DAILY omeprazole 20 mg PO BID 90 days polyethylene glycol 3350 (Miralax) 17 grams PO DAILY 1 day tiotropium bromide 1.25 mcg/actuation (Spiriva Respimat) 2 puffs inhalation DAILY Tobacco use date assessed: 05/11/23 Fall risk assessment: No Falls in past year Last assessed Fall Risk: 05/11/23 Dental Screening Dental Screen Date: 05/11/23 Did you have a dental visit in the last 12 months?: Yes Did you have a dental problem in the last 6 months where you did not have access to dental care?: No Was dental information given to patient?: Patient has dentist HPI hyperlipidemia, CKD, lung cancer, GERD HPI Details Patient comes in today for his follow up visit States that he feels okay He denies any headaches or dizziness Denies any chest pains, no SOB No nausea/vomiting, no abdominal pain No change in bowel habits noted Had his follow up labs done a few days ago - to discuss his results [facility] Medical History Chronic kidney disease, stage III (moderate) Primary cancer of right lower lobe of lung (~04/2022) Personal history of nicotine dependence Tubular adenoma of colon (~2011) Cough Overweight (BMI 25.0-29.9) Folate deficiency Vitamin B12 deficiency Neuropathy Chronic gastritis without bleeding Impaired fasting glucose Chronic obstructive pulmonary disease (COPD) Pure hypercholesterolemia Benign essential hypertension Surgical History History of lobectomy of lung History of bronchoscopy History of colonoscopy History of esophagogastroduodenoscopy (EGD) History of laparoscopic cholecystectomy Family History Father Hypertension Mother Lung cancer Maternal Aunt Breast cancer Family/Other Hypertension Heart disease Social History Housing: House Alcohol intake: never Patient Tobacco Use Status: Former Tobacco user e-Cigarette/Vaping Use: Never Used Second Hand Smoke Exposure: Yes service: No Current occupational status: unemployed Cognitive needs: No Hearing needs: No Vision needs: Yes Questionnaire PHQ-9 Over the last 2 weeks, how often have you been bothered by any of the following problems? 1. Little interest or pleasure in doing things: not at all 2. Feeling down, depressed, or hopeless: not at all 3. Trouble falling or staying asleep, or sleeping too much: not at all 4. Feeling tired or having little energy: not at all 5. Poor appetite or overeating: not at all 6. Feeling bad about yourself - or that you are a failure or have let yourself or your family down: not at all 7. Trouble concentrating on things, such as reading the newspaper or watching television: not at all 8. Moving or speaking so slowly that other people could have noticed. Or the opposite - being so fidgety or restless that you have been moving around a lot more than usual: not at all 9. Thoughts that you would be better off or of hurting yourself in some way: not at all Total score: 0 Depression Screening Interpretation: Negative Depression Screening Done: Yes 37748 - PHQ-9 Billing: Yes Source: Developed by Drs. Dayron Noriega, Batool Echeverria, Tom Will and colleagues, with an educational blayne from [employer]. Thrive Questionnaire Date Thrive assessed: 05/11/23 I am a: Patient What is your living situation today?: I have a steady place to live Within the past 12 months, did the food you bought not last and you didn't have the money to get more?: Never true Within the past 12 months, did you worry whether your food would run out before you got money to buy more?: Never true Do you have trouble paying for medicines?: No Do you have trouble getting transportation to medical appointments?: No Do you have trouble paying your heating and electricity bill?: No Do you have trouble taking care of your child, family member or friend?: No Do you have trouble with day-to-day activities such as bathing, preparing meals, shopping, managing finances, etc.?: No Are you currently unemployed and looking for a job?: No Are you interested in more education?: No Please select the resources that you would like help with: None Currently or been in a relationship where the following occur: no concerns reported AUDIT C Alcohol Use Questionnaire (AUDIT-C) 1. How often do you have a drink containing alcohol?: Never 3. How often do you have six or more drinks on one occasion?: Never Total Score: 0 Score Reviewed/Action Taken: Yes ZACH-7 AMB Questionnaire ZACH-7 Date ZACH - 7 assessed: 05/11/23 Feeling nervous, anxious, or on edge: 0 = Not at all Not being able to stop or control worryin = Not at all Worrying too much about different things: 0 = Not at all Trouble relaxin = Not at all Being so restless that it is hard to sit still: 0 = Not at all Becoming easily annoyed or irritable: 0 = Not at all Feeling afraid as if something awful might happen: 0 = Not at all Total ZACH-7 score (0-4 normal; 5-9 mild; 10-14 moderate; 15-21 severe): 0 Source: Developed by Drs. Dayron Noriega, Batool Echeverria, Tom Will and colleagues, with an educational blayne from [employer]. Review of Systems Const Denies chills, Denies fatigue, Denies fever(s) and Denies headache(s) ENT Denies dysphagia, Denies dizziness, Denies otalgia, Denies headache(s), Denies neck pain, Denies odynophagia and Denies sore throat Card Denies chest pain, Denies palpitations and Denies dyspnea Resp Denies cough and Denies dyspnea GI Denies abdominal pain, Denies constipation, Denies dysphagia, Denies heartburn, Denies diarrhea, Denies nausea, Denies odynophagia and Denies vomiting Denies dysuria, Denies nocturia and Denies urinary frequency Musc Denies neck pain Skin/Breast Denies rash Neuro Denies dizziness and Denies headache(s) Endo Denies fatigue and Denies palpitations Physical exam (Primary Care) Vital Signs: Last Vital Signs Pulse 57 05/11/23 09:20 BP 120/68 05/11/23 09:20 Pulse Ox 97 05/11/23 09:20 Oxygen Delivery Method Room Air 05/11/23 09:20 BMI result Body Mass Index 24.6 Tobacco/Smoking Status: Tobacco use Status Tobacco use date assessed 05/11/23 05/11/23 09:26 Patient Tobacco Use Status Former Tobacco user 05/11/23 09:26 e-Cigarette/Vaping Use Never Used 05/11/23 09:26 PHQ-9: PHQ-9 Score PHQ-9: Total score 0 05/11/23 09:26 Depression Screening Interpretation: Negative Thrive Assessment: Date of Thrive Assessment Date Thrive assessed 05/11/23 05/11/23 09:26 Currently or been in a relationship where the following occur: no concerns reported Const General: no acute distress and alert HENMT Ears: TM's normal bilaterally and EAC's normal Throat: Yes posterior oropharynx normal and Yes tonsils normal (no TP congestion) Neck Neck: Yes no lymphadenopathy and Yes supple Resp Auscultation: clear to auscultation bilaterally, no rales and no wheezes Cardio Rate: regular rate Rhythm: regular rhythm Heart sounds: no murmurs GI Palpation (GI): Soft to palpation and nontender Auscultation: normal bowel sounds Extrem General: Yes no clubbing, cyanosis or edema Results Reviewed Results Reviewed: Laboratory Tests 10/06/22 05/08/23 05/08/23 10:11 09:24 09:26 WBC 6.0 Hgb 11.5 L Hct 35.1 L Plt Count 241 Sodium 145 Potassium 4.0 Creatinine 1.36 Estimated GFR 53 Fasting Glucose 99 Calcium 9.8 D Iron 37 L TIBC 226 L % Saturation 16 AST 13 ALT 7 Triglycerides 112 Cholesterol 172 LDL Cholesterol, Calc HDL Cholesterol Vitamin B12 1577 H 25-OH Vitamin D Total TSH Ur Specific [place] 1.010 Urine Protein Negative Urine Glucose (UA) Negative Urine Blood Negative 05/08/23 05/08/23 09:26 09:26 WBC Hgb Hct Plt Count Sodium Potassium Creatinine Estimated GFR Fasting Glucose Calcium Iron TIBC % Saturation AST ALT Triglycerides Cholesterol LDL Cholesterol, Calc 106 H HDL Cholesterol 44 Vitamin B12 25-OH Vitamin D Total 11.2 L TSH 0.84 Ur Specific [place] Urine Protein Urine Glucose (UA) Urine Blood Assessment and Plan Assessment & Plan (1) Primary cancer of right lower lobe of lung: Onset Date: ~04/2022 Comment: (Stage IIB, 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, pT3 pNo or stage IIB Patient also completed chemotherapy for his lung cancer a few months ago States that he just had his repeat chest CT done at [facility] earlier this morning for follow up - plan was for him to get follow up chest CT every 6 months x 2 years, then repeat chest CT every 2 to 3 years if imaging studies remain negative Follow up with oncology and with thoracic surgery as scheduled for continuing surveillance (2) Anemia: Code(s): D64.9 - Anemia, unspecified Qualifiers: Anemia type: other cause Other causes of anemia: antineoplastic chemotherapy Qualified Code(s): D64.81 - Anemia due to antineoplastic chemotherapy; T45.1X5A - Adverse effect of antineoplastic and immunosuppressive drugs, initial encounter Plan: Patient is still anemic on his recent labs (H/H = 11.5/35.1) but these have improved again from his previous CBC Is most likely anemia of chronic disease (due to his CKD) He no longer has the recurrent dizzy spells that he had a few months ago Will recheck his labs and CBC in 3 months for follow up (3) Chronic kidney disease, stage III (moderate): Code(s): N18.30 - Chronic kidney disease, stage 3 unspecified Qualifiers: Chronic kidney disease stage 3 subtype: stage 3b (GFR 30-44) Qualified Code(s): N18.32 - Chronic kidney disease, stage 3b Plan: Patient's renal function currently appears stable He is again advised to avoid taking any NSAIDs; may take Tylenol PRN instead for pain but no more than 4 tablets a day Follow up with nephrology as scheduled (4) Benign essential hypertension: Code(s): I10 - Essential (primary) hypertension Plan: Reinforced low sodium diet - goal is systolic BP of at least 130 mm or less Continue Losartan 50 mg QD - dose was futher reduced by nephrology a couple of weeks ago Used to take Amlodipine 5 mg QD as well but this was HELD due to low BP and recurrent dizziness/orthostasis and eventually discontinued Patient is instructed to continue monitoring his BP regularly (5) Pure hypercholesterolemia: Code(s): E78.00 - Pure hypercholesterolemia, unspecified Plan: Results of his labs done a few days ago reviewed and discussed with patient Reinforced low cholesterol diet Will recheck his labs and fasting lipids in 3 months for follow up (6) Chronic obstructive pulmonary disease (COPD): Code(s): J44.9 - Chronic obstructive pulmonary disease, unspecified Qualifiers: COPD type: unspecified COPD Qualified Code(s): J44.9 - Chronic obstructive pulmonary disease, unspecified Plan: Continue Spiriva Respimat 1.25 mg 2 inhalations once a day and Albuterol HFA 2 puffs 4 times a day PRN Was previously on Incruse Ellipta but had to be switched back to Spiriva due to formulary restrictions (7) Impaired fasting glucose: Code(s): R73.01 - Impaired fasting glucose Plan: HgbA1c was normal at 5.34% when checked back in November 2021; his FBS remained normal at 99 mg/dl on his recent labs Reinforced low calorie diet/exercise as tolerated (8) Chronic gastritis without bleeding: Code(s): K29.50 - Unspecified chronic gastritis without bleeding Qualifiers: Gastritis type: unspecified gastritis Qualified Code(s): K29.50 - Unspecified chronic gastritis without bleeding Plan: S/P EGD in September 2018 Continue Omeprazole 20 mg BID Follow up with GI (Dr. 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 EMG in the right L4-S1 innervated muscles were normal (10) Vitamin B12 deficiency: Code(s): E53.8 - Deficiency of other specified B group vitamins Plan: Corrected but advised that his Vitamin B12 level is now overcorrected Will have him cut back on his Vitamin B12 tablets to 1000 mcg QOD for now Will recheck his Vitamin B12 level in 3 months for follow up (11) Folate deficiency: Code(s): E53.8 - Deficiency of other specified B group vitamins Plan: Continue Folic Acid 1 mg QD (12) Vitamin D deficiency: Code(s): E55.9 - Vitamin D deficiency, unspecified Plan: Advised that his Vitamin D level is still very low on his recent labs Continue Vitamin D3 1000 units QD Plan Follow up in 3 months Orders: Orders Comprehensive [place]. Panel Fast 3 Months E78.00 - Pure hypercholesterolemia, unspecified Complete Blood Count Auto Diff 3 Months I10 - Essential (primary) hypertension Lipid Panel 3 Months E78.00 - Pure hypercholesterolemia, unspecified TSH reflex Free T4 3 Months E78.00 - Pure hypercholesterolemia, unspecified Vitamin D 25-OH Total 3 Months E55.9 - Vitamin D deficiency, unspecified UA CC w/rflx Micro + Cult 3 Months R30.0 - Dysuria Vitamin B12 and Folate 3 Months E53.8 - Deficiency of other specified B group vitamins Coding Level of Care Code Est Pt Level 4 (59734) Diagnoses Primary cancer of right lower lobe of lung C34.31 Anemia due to antineoplastic chemotherapy D64.81; T45.1X5A Anemia type: other cause Other causes of anemia: antineoplastic chemotherapy Stage 3b chronic kidney disease N18.32 Chronic kidney disease stage 3 subtype: stage 3b (GFR 30-44) Benign essential hypertension I10 Pure hypercholesterolemia E78.00 Chronic obstructive pulmonary disease, unspecified COPD type J44.9 COPD type: unspecified COPD Impaired fasting glucose R73.01 Chronic gastritis without bleeding, unspecified gastritis type K29.50 Gastritis type: unspecified gastritis Neuropathy G62.9 Vitamin B12 deficiency E53.8 Folate deficiency E53.8 Vitamin D deficiency E55.9
== END 2023-05-11 10:02 | disposition home or self-care (01) ==
PROVIDERS: PCP Internal Medicine; Visit Provider Internal Medicine
DX: I12.9 Hypertensive chronic kidney disease with stage 1 through stage 4 chronic kidney disease, or unspecified chronic kidney disease (principal); C34.31 Malignant neoplasm of lower lobe, right bronchus or lung; N18.32 Chronic kidney disease, stage 3b; J44.9 Chronic obstructive pulmonary disease, unspecified; D64.81 Anemia due to antineoplastic chemotherapy; T45.1X5A Adverse effect of antineoplastic and immunosuppressive drugs, initial encounter; E78.00 Pure hypercholesterolemia, unspecified; R73.01 Impaired fasting glucose; K29.50 Unspecified chronic gastritis without bleeding; G62.9 Polyneuropathy, unspecified; E53.8 Deficiency of other specified B group vitamins; E55.9 Vitamin D deficiency, unspecified
CPT/HCPCS: 99214

== ENCOUNTER 2023-08-10 10:55 | Outpatient (REF) | payer MEDICARE, OTHER, SELFPAY ==
[2023-08-10 11:08] LABS: MANUAL DIFF FLAG NO
[2023-08-10 11:12] LABS: Basophils Absolute Auto 0.1 X10*3/uL (0.0-0.2); Basophils Percent Auto 1.1 % (0-2); Eosinophils Absolute Auto 0.2 X10*3/uL (0.0-0.4); Eosinophils Percent Auto 2.9 % (0-4); Imm Gran Abs Auto 0.02 X10*3/uL (0.00-0.03); Imm Gran Pct Auto 0.3 % (0.0-0.4); Lymphocytes Absolute Auto 1.1 X10*3/uL (1.2-4.9); Lymphocytes Percent Auto 18.6 % (20-40); Mean Corpuscular HGB Conc 33.3 g/dl (31.0-36.0); Mean Corpuscular Hemoglobin 29.9 pg (27.0-33.0); Mean Corpuscular Volume 89.6 fL (80.0-98.0); Monocytes Absolute Auto 0.3 X10*3/uL (0.1-1.2); Monocytes Percent Auto 4.9 % (2-11); Neutrophils Absolute Auto 4.4 x10*3/uL (2.0-8.3); Neutrophils Percent Auto 72.2 % (45-73); Platelet Count 249 X10*3/uL (160-400); Red Blood Count 4.02 X10*6/uL (4.60-5.80); Red Cell Distribution Width 13.2 % (11.0-16.0); White Blood Count 6.1 X10*3/uL (4.8-10.8)
[2023-08-10 13:00] LABS: Appearance Urine Clear; Color Urine Yellow; Glucose Urine UA Negative (Negative); Leukocyte Esterase Urine Negative (Negative); Nitrite Urine Negative (Negative); Urine Blood Negative (Negative); Urine Ketones Negative (Negative); Urine Protein Negative (Neg-Trace)
[2023-08-10 13:09] LABS: Alanine Aminotransferase 5 U/L (0-40); Alkaline Phosphatase 84 U/L (39-117); Anion Gap 13 (12-20); Aspartate Amino Transferase 9 U/L (5-37); Bilirubin Total 0.5 mg/dL (0.0-1.0); Blood Urea Nitrogen 17 mg/dL (9-16); Calcium 9.6 mg/dL (8.4-10.2); Carbon Dioxide 23 mmol/L (22-29); Chloride 111 mmol/L (96-108); Cholesterol 148 mg/dL (<200); Estimated Glomerular Filt Rate 50; Glucose Fasting 97 mg/dL (60-99); HDL Cholesterol 39 mg/dL (>40); LDL Cholesterol Calculated 84 mg/dL (<100); Sodium 143 mmol/L (135-145); TSH reflex Free T4 0.88 uIU/mL (0.32-4.0); Total Protein 6.5 g/dL (6.5-8.0); Triglycerides 128 mg/dL (<150); Vitamin D 25-OH Total 6.8 ng/mL (>30)
[2023-08-10 13:28] LABS: Folate > 20.0 ng/mL (> or = 4.0); Vitamin B12 968 pg/mL (200-900)
== END 2023-08-10 10:56 | disposition home or self-care (01) ==
LOC: HO.LAB 10:55
PROVIDERS: PCP Internal Medicine; Visit Provider Internal Medicine
DX: I10 Essential (primary) hypertension (principal); E78.00 Pure hypercholesterolemia, unspecified; E55.9 Vitamin D deficiency, unspecified; R30.0 Dysuria; E53.8 Deficiency of other specified B group vitamins
CPT/HCPCS: 36415; 80053; 80061; 81003; 82306; 82607; 82746; 84443; 85025

== ENCOUNTER 2023-08-11 08:57 | Outpatient (AMB) | payer MEDICARE, OTHER, SELFPAY ==
[2023-08-11 08:58] VITALS: BP 120/72; PULSE 83; O2SAT 97; BMI 24.6
--- NOTE | 2023-08-11 08:58 | A.OFFPC_ITS ---
Vital Signs 08/11/23 08:58 Height 5 ft 7 in Weight 157 lb 2 oz BMI 24.6 BP 120/72 Blood Pressure Location Lt brachial Position Sitting Pulse 83 Pulse Source Pulse Oximeter Pulse Oximetry (%) 97 Oxygen Delivery Method Room Air Intake Visit Reasons: HTN, CKD, hyperlipidemia, Hx of lung cancer Geographic Analyst Required: No Accompanied by: Self / Same As Patient Allergies No Known Allergies [No Known Allergies*] Allergy (Verified 08/11/23 09:09) Medication List - Last Reconciled 08/11/23 by Dario Reed MD albuterol sulfate 90 mcg/actuation 2 puffs inhalation Q4-6H PRN 90 days bisacodyl (Dulcolax (bisacodyl)) 10 mg (2 x 5 mg) PO ONCE 5 days cyanocobalamin (vitamin B-12) ER 1,000 mcg PO DAILY 90 days folic acid 1 mg PO DAILY losartan 50 mg PO DAILY omeprazole 20 mg PO BID 90 days polyethylene glycol 3350 (Miralax) 17 grams PO DAILY 1 day tiotropium bromide 1.25 mcg/actuation (Spiriva Respimat) 2 puffs inhalation DAILY Tobacco use date assessed: 08/11/23 Fall risk assessment: No Falls in past year Last assessed Fall Risk: 08/11/23 Dental Screening Dental Screen Date: 08/11/23 Did you have a dental visit in the last 12 months?: No Did you have a dental problem in the last 6 months where you did not have access to dental care?: No Was dental information given to patient?: No HPI HTN, CKD, hyperlipidemia, Hx of lung cancer HPI Details Patient comes in today for his follow up visit States that he feels okay He denies any headaches or dizziness Denies any chest pains, no SOB No nausea/vomiting, no abdominal pain No change in bowel habits noted Had his follow up labs done yesterday - to discuss his results [facility] Medical History Chronic kidney disease, stage III (moderate) Primary cancer of right lower lobe of lung (~04/2022) Personal history of nicotine dependence Tubular adenoma of colon (~2011) Cough Overweight (BMI 25.0-29.9) Folate deficiency Vitamin B12 deficiency Neuropathy Chronic gastritis without bleeding Impaired fasting glucose Chronic obstructive pulmonary disease (COPD) Pure hypercholesterolemia Benign essential hypertension Surgical History History of lobectomy of lung History of bronchoscopy History of colonoscopy History of esophagogastroduodenoscopy (EGD) History of laparoscopic cholecystectomy Family History Father Hypertension Mother Lung cancer Maternal Aunt Breast cancer Family/Other Hypertension Heart disease Social History Housing: House Alcohol intake: never Patient Tobacco Use Status: Former Tobacco user e-Cigarette/Vaping Use: Never Used Second Hand Smoke Exposure: Yes service: No Current occupational status: unemployed Cognitive needs: No Hearing needs: No Vision needs: Yes Questionnaire PHQ-9 Over the last 2 weeks, how often have you been bothered by any of the following problems? 1. Little interest or pleasure in doing things: not at all 2. Feeling down, depressed, or hopeless: not at all 3. Trouble falling or staying asleep, or sleeping too much: not at all 4. Feeling tired or having little energy: not at all 5. Poor appetite or overeating: not at all 6. Feeling bad about yourself - or that you are a failure or have let yourself or your family down: not at all 7. Trouble concentrating on things, such as reading the newspaper or watching television: not at all 8. Moving or speaking so slowly that other people could have noticed. Or the opposite - being so fidgety or restless that you have been moving around a lot more than usual: not at all 9. Thoughts that you would be better off or of hurting yourself in some way: not at all Total score: 0 Depression Screening Interpretation: Negative Depression Screening Done: Yes 34919 - PHQ-9 Billing: Yes Source: Developed by Drs. Dayron Noriega, Batool Echeverria, Tom Will and colleagues, with an educational blayne from [email or web address]. Thrive Questionnaire Date Thrive assessed: 08/11/23 I am a: Patient What is your living situation today?: I have a steady place to live Within the past 12 months, did the food you bought not last and you didn't have the money to get more?: Never true Within the past 12 months, did you worry whether your food would run out before you got money to buy more?: Never true Do you have trouble paying for medicines?: No Do you have trouble getting transportation to medical appointments?: No Do you have trouble paying your heating and electricity bill?: No Do you have trouble taking care of your child, family member or friend?: No Do you have trouble with day-to-day activities such as bathing, preparing meals, shopping, managing finances, etc.?: No Are you currently unemployed and looking for a job?: No Are you interested in more education?: No Please select the resources that you would like help with: None Currently or been in a relationship where the following occur: no concerns reported THRIVE Score: 0 AUDIT C Alcohol Use Questionnaire (AUDIT-C) 1. How often do you have a drink containing alcohol?: Never 3. How often do you have six or more drinks on one occasion?: Never Total Score: 0 Score Reviewed/Action Taken: Yes ZACH-7 AMB Questionnaire ZACH-7 Date ZACH - 7 assessed: 08/11/23 Feeling nervous, anxious, or on edge: 0 = Not at all Not being able to stop or control worryin = Not at all Worrying too much about different things: 0 = Not at all Trouble relaxin = Not at all Being so restless that it is hard to sit still: 0 = Not at all Becoming easily annoyed or irritable: 0 = Not at all Feeling afraid as if something awful might happen: 0 = Not at all Total ZACH-7 score (0-4 normal; 5-9 mild; 10-14 moderate; 15-21 severe): 0 Source: Developed by Drs. Dayron Noriega, Batool Echeverria, Tom Will and colleagues, with an educational blayne from [email or web address]. Review of Systems Const Denies chills, Denies fatigue, Denies fever(s) and Denies headache(s) ENT Denies dysphagia, Denies dizziness, Denies otalgia, Denies headache(s), Denies neck pain, Denies odynophagia and Denies sore throat Card Denies chest pain, Denies palpitations and Denies dyspnea Resp Denies chest congestion, Denies cough and Denies dyspnea GI Denies abdominal pain, Denies constipation, Denies dysphagia, Denies heartburn, Denies diarrhea, Denies nausea, Denies odynophagia and Denies vomiting Denies dysuria, Denies nocturia and Denies urinary frequency Musc Denies back pain and Denies neck pain Skin/Breast Denies rash Neuro Denies dizziness and Denies headache(s) Endo Denies fatigue and Denies palpitations Physical exam (Primary Care) Vital Signs: Last Vital Signs Pulse 83 08/11/23 08:58 BP 120/72 08/11/23 08:58 Pulse Ox 97 08/11/23 08:58 Oxygen Delivery Method Room Air 08/11/23 08:58 BMI result Body Mass Index 24.6 Tobacco/Smoking Status: Tobacco use Status Tobacco use date assessed 08/11/23 08/11/23 09:00 Patient Tobacco Use Status Former Tobacco user 08/11/23 09:00 e-Cigarette/Vaping Use Never Used 08/11/23 09:00 PHQ-9: PHQ-9 Score PHQ-9: Total score 0 08/11/23 09:06 Depression Screening Interpretation: Negative Thrive Assessment: Date of Thrive Assessment Date Thrive assessed 08/11/23 08/11/23 09:00 Currently or been in a relationship where the following occur: no concerns reported Const General: no acute distress and alert HENMT Ears: TM's normal bilaterally and EAC's normal Throat: Yes posterior oropharynx normal and Yes tonsils normal (no TP congestion) Neck Neck: Yes no lymphadenopathy and Yes supple Thyroid: Thyroid normal Resp Auscultation: clear to auscultation bilaterally, no rales and no wheezes Cardio Rate: regular rate Rhythm: regular rhythm Heart sounds: no murmurs GI Palpation (GI): Soft to palpation and nontender Auscultation: normal bowel sounds General: Yes no CVA tenderness Back/Spine/Pelvis Back: no CVA tenderness Skin Rashes: no rashes Extrem General: Yes no clubbing, cyanosis or edema Results Reviewed Results Reviewed: Laboratory Tests 08/10/23 08/10/23 11:07 11:08 WBC 6.1 Hgb 12.0 L Hct 36.0 L Plt Count 249 Sodium 143 Potassium 4.0 Creatinine 1.43 H Estimated GFR 50 Fasting Glucose 97 Calcium 9.6 AST 9 ALT 5 Triglycerides 128 Cholesterol 148 LDL Cholesterol, Calc 84 HDL Cholesterol 39 L Vitamin B12 968 H 25-OH Vitamin D Total 6.8 L Folate > 20.0 TSH 0.88 Ur Specific [place] 1.020 Urine Protein Negative Urine Glucose (UA) Negative Urine Blood Negative Urine Nitrite Negative Ur Leukocyte Esterase Negative Assessment and Plan Assessment & Plan (1) Primary cancer of right lower lobe of lung: Onset Date: ~04/2022 Comment: (Stage IIB, 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, pT3 pNo or stage IIB Patient completed chemotherapy for his lung cancer a few months ago Had his repeat chest CT done at [facility] for follow up in April 2023 - he will be getting follow up chest CT every 6 months x 2 years, then repeat chest CT every 2 to 3 years if imaging studies remain negative Follow up with oncology and with thoracic surgery as scheduled for continuing surveillance (2) Anemia: Code(s): D64.9 - Anemia, unspecified Qualifiers: Anemia type: other cause Other causes of anemia: antineoplastic chemotherapy Qualified Code(s): D64.81 - Anemia due to antineoplastic chemotherapy; T45.1X5A - Adverse effect of antineoplastic and immunosuppressive drugs, initial encounter Plan: Patient is still mildly anemic on his recent labs (H/H = 12.0/36.0) but these have again improved from his previous CBC Is most likely anemia of chronic disease (due to his CKD) although his iron levels were also slightly low when checked a few months ago He no longer has the recurrent dizzy spells that he had a few months ago Will recheck his labs and CBC in 3 months for follow up (3) Chronic kidney disease, stage III (moderate): Code(s): N18.30 - Chronic kidney disease, stage 3 unspecified Qualifiers: Chronic kidney disease stage 3 subtype: stage 3b (GFR 30-44) Qualified Code(s): N18.32 - Chronic kidney disease, stage 3b Plan: Patient's renal function currently appears stable He is reminded to avoid taking any NSAIDs; may take Tylenol PRN instead for pain but no more than 4 tablets a day Follow up with nephrology (Dr. Dominguez) as scheduled (4) Benign essential hypertension: Code(s): I10 - Essential (primary) hypertension Plan: Reinforced low sodium diet - goal is systolic BP of at least 130 mm or less Continue Losartan 50 mg QD - dose was futher reduced by nephrology a couple of weeks ago Used to take Amlodipine 5 mg QD as well but this was HELD due to low BP and recurrent dizziness/orthostasis and eventually discontinued Patient is reminded to continue monitoring his BP regularly (5) Pure hypercholesterolemia: Code(s): E78.00 - Pure hypercholesterolemia, unspecified Plan: Results of his labs done yesterday reviewed and discussed with patient Reinforced low cholesterol diet Will recheck his labs and fasting lipids in 3 months for follow up (6) Chronic obstructive pulmonary disease (COPD): Code(s): J44.9 - Chronic obstructive pulmonary disease, unspecified Qualifiers: COPD type: unspecified COPD Qualified Code(s): J44.9 - Chronic obstructive pulmonary disease, unspecified Plan: Continue Spiriva Respimat 1.25 mg 2 inhalations once a day and Albuterol HFA 2 puffs 4 times a day PRN Was previously on Incruse Ellipta but had to be switched back to Spiriva due to formulary restrictions (7) Impaired fasting glucose: Code(s): R73.01 - Impaired fasting glucose Plan: HgbA1c was normal at 5.34% when checked back in November 2021; his FBS remained normal at 97 mg/dl on his recent labs Reinforced low calorie diet/exercise as tolerated (8) Chronic gastritis without bleeding: Code(s): K29.50 - Unspecified chronic gastritis without bleeding Qualifiers: Gastritis type: unspecified gastritis Qualified Code(s): K29.50 - Unspecified chronic gastritis without bleeding Plan: S/P EGD in September 2018 Continue Omeprazole 20 mg BID Follow up with GI (Dr. 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 EMG in the right L4-S1 innervated muscles were normal (10) Vitamin B12 deficiency: Code(s): E53.8 - Deficiency of other specified B group vitamins Plan: Corrected Continue Vitamin B12 tablets 1000 mcg QOD for now Will recheck his Vitamin B12 level in 3 months for follow up (11) Folate deficiency: Code(s): E53.8 - Deficiency of other specified B group vitamins Plan: Continue Folic Acid 1 mg QD (12) Vitamin D deficiency: Code(s): E55.9 - Vitamin D deficiency, unspecified Plan: Advised that his Vitamin D level is still very low on his recent labs He was supposed to be taking Vitamin D3 1000 units QD but he now admits that he never started taking it Will start him now on Vitamin D3 2000 units QD Will recheck his Vitamin D level in 3 months for follow up Plan Follow up in 3 months Orders: Orders Complete Blood Count Auto Diff 3 Months D64.9 - Anemia, unspecified Comprehensive Ransom. Panel Fast 3 Months E78.00 - Pure hypercholesterolemia, unspecified TSH reflex Free T4 3 Months E78.00 - Pure hypercholesterolemia, unspecified UA CC w/rflx Micro + Cult 3 Months R30.0 - Dysuria Lipid Panel 3 Months E78.00 - Pure hypercholesterolemia, unspecified Vitamin B12 and Folate 3 Months E53.8 - Deficiency of other specified B group vitamins Vitamin D 25-OH Total 3 Months E55.9 - Vitamin D deficiency, unspecified Medications: New cholecalciferol (vitamin D3) 50 mcg PO DAILY 90 caps 3RF 90 days E55.9 - Vitamin D deficiency, unspecified Coding Level of Care Code Est Pt Level 4 (65431) Diagnoses Primary cancer of right lower lobe of lung C34.31 Anemia due to antineoplastic chemotherapy D64.81; T45.1X5A Anemia type: other cause Other causes of anemia: antineoplastic chemotherapy Stage 3b chronic kidney disease N18.32 Chronic kidney disease stage 3 subtype: stage 3b (GFR 30-44) Benign essential hypertension I10 Pure hypercholesterolemia E78.00 Chronic obstructive pulmonary disease, unspecified COPD type J44.9 COPD type: unspecified COPD Impaired fasting glucose R73.01 Chronic gastritis without bleeding, unspecified gastritis type K29.50 Gastritis type: unspecified gastritis Neuropathy G62.9 Vitamin B12 deficiency E53.8 Folate deficiency E53.8 Vitamin D deficiency E55.9
== END 2023-08-11 09:29 | disposition home or self-care (01) ==
PROVIDERS: PCP Internal Medicine; Visit Provider Internal Medicine
DX: N18.32 Chronic kidney disease, stage 3b (principal); J44.9 Chronic obstructive pulmonary disease, unspecified; C34.31 Malignant neoplasm of lower lobe, right bronchus or lung; D64.81 Anemia due to antineoplastic chemotherapy; T45.1X5A Adverse effect of antineoplastic and immunosuppressive drugs, initial encounter; I12.9 Hypertensive chronic kidney disease with stage 1 through stage 4 chronic kidney disease, or unspecified chronic kidney disease; E78.00 Pure hypercholesterolemia, unspecified; R73.01 Impaired fasting glucose; K29.50 Unspecified chronic gastritis without bleeding; G62.9 Polyneuropathy, unspecified; E53.8 Deficiency of other specified B group vitamins; E55.9 Vitamin D deficiency, unspecified
CPT/HCPCS: 99214

== ENCOUNTER 2023-11-03 07:42 | Outpatient (REF) | payer MEDICARE, OTHER, SELFPAY ==
[2023-11-03 07:54] LABS: MANUAL DIFF FLAG NO
[2023-11-03 08:32] LABS: Basophils Absolute Auto 0.1 X10*3/uL (0.0-0.2); Basophils Percent Auto 1.9 % (0-2); Eosinophils Absolute Auto 0.4 X10*3/uL (0.0-0.4); Eosinophils Percent Auto 5.4 % (0-4); Hematocrit 43.6 % (42.0-52.0); Imm Gran Abs Auto 0.03 X10*3/uL (0.00-0.03); Imm Gran Pct Auto 0.5 % (0.0-0.4); Lymphocytes Absolute Auto 1.5 X10*3/uL (1.2-4.9); Lymphocytes Percent Auto 23.6 % (20-40); Mean Corpuscular HGB Conc 33.3 g/dl (31.0-36.0); Mean Corpuscular Hemoglobin 29.5 pg (27.0-33.0); Mean Corpuscular Volume 88.8 fL (80.0-98.0); Mean Platelet Volume 10.5 fL (9.4-12.4); Monocytes Absolute Auto 0.4 X10*3/uL (0.1-1.2); Monocytes Percent Auto 5.6 % (2-11); Neutrophils Absolute Auto 4.1 x10*3/uL (2.0-8.3); Platelet Count 257 X10*3/uL (160-400); Red Blood Count 4.91 X10*6/uL (4.60-5.80); Red Cell Distribution Width 13.6 % (11.0-16.0); White Blood Count 6.5 X10*3/uL (4.8-10.8)
[2023-11-03 08:37] LABS: Hemoglobin 14.5 g/dl (14.0-18.0)
[2023-11-03 09:01] LABS: Alanine Aminotransferase 8 U/L (0-40); Albumin Level 4.6 g/dL (3.5-5.0); Alkaline Phosphatase 95 U/L (39-117); Anion Gap 15 (12-20); Aspartate Amino Transferase 12 U/L (5-37); Bilirubin Total 0.7 mg/dL (0.0-1.0); Blood Urea Nitrogen 23 mg/dL (9-16); Calcium 10.5 mg/dL (8.4-10.2); Carbon Dioxide 24 mmol/L (22-29); Chloride 108 mmol/L (96-108); Cholesterol 223 mg/dL (<200); Estimated Glomerular Filt Rate 43; Glucose Fasting 127 mg/dL (60-99); HDL Cholesterol 49 mg/dL (>40); LDL Cholesterol Calculated 142 mg/dL (<100); Potassium 4.4 mmol/L (3.3-5.1); Sodium 143 mmol/L (135-145); Total Protein 7.4 g/dL (6.5-8.0); Triglycerides 163 mg/dL (<150)
[2023-11-03 09:09] LABS: TSH reflex Free T4 0.76 uIU/mL (0.32-4.0); Vitamin D 25-OH Total 7.7 ng/mL (>30)
[2023-11-03 09:12] LABS: Appearance Urine Clear; Color Urine Yellow; Glucose Urine UA Negative (Negative); Leukocyte Esterase Urine Negative (Negative); Nitrite Urine Negative (Negative); PH 6.5 (5.0-9.0); Urine Blood Negative (Negative); Urine Ketones Negative (Negative); Urine Protein Negative (Neg-Trace)
[2023-11-03 09:21] LABS: Folate > 20.0 ng/mL (> or = 4.0); Vitamin B12 1329 pg/mL (200-900)
== END 2023-11-03 07:43 | disposition home or self-care (01) ==
LOC: HO.LAB 07:42
PROVIDERS: PCP Internal Medicine; Visit Provider Internal Medicine
DX: R30.0 Dysuria (principal); E78.00 Pure hypercholesterolemia, unspecified; E53.8 Deficiency of other specified B group vitamins; E55.9 Vitamin D deficiency, unspecified; D64.9 Anemia, unspecified
CPT/HCPCS: 36415; 80053; 80061; 81003; 82306; 82607; 82746; 84443; 85025

== ENCOUNTER 2023-11-05 10:41 | Outpatient (AMB) | payer MEDICARE, OTHER, SELFPAY ==
--- NOTE | 2023-11-05 10:55 | A.OFFPC_ITS ---
Vital Signs 11/05/23 10:57 Height 5 ft 7 in Weight 159 lb 4 oz BMI 24.9 BP 146/86 H Blood Pressure Location Lt brachial Position Sitting Pulse 92 Pulse Source Pulse Oximeter Pulse Oximetry (%) 95 Oxygen Delivery Method Room Air Intake Visit Reasons: 3 Month F/U [employer] Member Required: No Accompanied by: Self / Same As Patient Allergies No Known Allergies [No Known Allergies*] Allergy (Verified 11/05/23 11:12) Medication List - Last Reconciled 11/05/23 by Dario Reed MD albuterol sulfate 90 mcg/actuation 2 puffs inhalation Q4-6H PRN 90 days bisacodyl (Dulcolax (bisacodyl)) 10 mg (2 x 5 mg) PO ONCE 5 days cholecalciferol (vitamin D3) 50 mcg PO DAILY 90 days cyanocobalamin (vitamin B-12) ER 1,000 mcg PO DAILY 90 days folic acid 1 mg PO DAILY losartan 50 mg PO DAILY omeprazole 20 mg PO BID 90 days polyethylene glycol 3350 (Miralax) 17 grams PO DAILY 1 day tiotropium bromide 1.25 mcg/actuation (Spiriva Respimat) 2 puffs inhalation DAILY Tobacco use date assessed: 08/11/23 Fall risk assessment: No Falls in past year Last assessed Fall Risk: 11/05/23 Dental Screening Dental Screen Date: 08/11/23 HPI 3 Month F/U HPI Details Patient comes in today for his follow up visit States that he feels okay He denies any headaches or dizziness Denies any chest pains, no SOB No nausea/vomiting, no abdominal pain No change in bowel habits noted Had his follow up labs done a couple of days ago - to discuss his results [facility] Medical History Chronic kidney disease, stage III (moderate) Primary cancer of right lower lobe of lung (~04/2022) Personal history of nicotine dependence Tubular adenoma of colon (~2011) Cough Overweight (BMI 25.0-29.9) Folate deficiency Vitamin B12 deficiency Neuropathy Chronic gastritis without bleeding Impaired fasting glucose Chronic obstructive pulmonary disease (COPD) Pure hypercholesterolemia Benign essential hypertension Surgical History History of lobectomy of lung History of bronchoscopy History of colonoscopy History of esophagogastroduodenoscopy (EGD) History of laparoscopic cholecystectomy Family History Father Hypertension Mother Lung cancer Maternal Aunt Breast cancer Family/Other Hypertension Heart disease Social History Housing: House Alcohol intake: never Patient Tobacco Use Status: Former Tobacco user e-Cigarette/Vaping Use: Never Used Second Hand Smoke Exposure: Yes service: No Current occupational status: unemployed Cognitive needs: No Hearing needs: No Vision needs: Yes Questionnaire Thrive Questionnaire Date Thrive assessed: 08/11/23 ZACH-7 AMB Questionnaire ZACH-7 Date ZACH - 7 assessed: 08/11/23 Source: Developed by Drs. Dayron Noriega, Batool Echeverria, Tom Will and colleagues, with an educational blayne from [employer]. Review of Systems Const Denies chills, Denies fatigue, Denies fever(s) and Denies headache(s) ENT Denies dysphagia, Denies dizziness, Denies otalgia, Denies headache(s), Denies neck pain, Denies odynophagia and Denies sore throat Card Denies chest pain, Denies palpitations and Denies dyspnea Resp Denies chest congestion, Denies cough and Denies dyspnea GI Denies abdominal pain, Denies constipation, Denies dysphagia, Denies heartburn, Denies diarrhea, Denies nausea, Denies odynophagia and Denies vomiting Denies dysuria, Denies nocturia and Denies urinary frequency Musc Denies back pain and Denies neck pain Skin/Breast Denies rash Neuro Denies dizziness and Denies headache(s) Endo Denies fatigue and Denies palpitations Physical exam (Primary Care) Vital Signs: Last Vital Signs Pulse 92 11/05/23 10:57 BP 146/86 H 11/05/23 10:57 Pulse Ox 95 11/05/23 10:57 Oxygen Delivery Method Room Air 11/05/23 10:57 BMI result Body Mass Index 24.9 Tobacco/Smoking Status: Tobacco use Status Tobacco use date assessed 08/11/23 11/05/23 10:57 Patient Tobacco Use Status Former Tobacco user 11/05/23 10:57 e-Cigarette/Vaping Use Never Used 11/05/23 10:57 Thrive Assessment: Date of Thrive Assessment Date Thrive assessed 08/11/23 11/05/23 10:57 Const General: no acute distress and alert HENMT Ears: TM's normal bilaterally and EAC's normal Throat: Yes posterior oropharynx normal and Yes tonsils normal (no TP congestion) Neck Neck: Yes no lymphadenopathy and Yes supple Thyroid: Thyroid normal Resp Auscultation: clear to auscultation bilaterally, no rales and no wheezes Cardio Rate: regular rate Rhythm: regular rhythm Heart sounds: no murmurs GI Palpation (GI): Soft to palpation and nontender Auscultation: normal bowel sounds General: Yes no CVA tenderness Back/Spine/Pelvis Back: no CVA tenderness Skin Rashes: no rashes Extrem General: Yes no clubbing, cyanosis or edema Results AMB Hemoglobin A1c AMB Hemoglobin A1c 5.7 % Last Edit by JOSHUA Napoles on 11/05/23 11:15 Results Reviewed Results Reviewed: Laboratory Last Values Hgb A1c (Clinic) 5.7 % (4.0-6.0) 11/05/23 11:13 Laboratory Tests 11/03/23 11/03/23 07:49 07:53 WBC 6.5 Hgb 14.5 D Hct 43.6 D Plt Count 257 Sodium 143 Potassium 4.4 Creatinine 1.61 H Estimated GFR 43 Fasting Glucose 127 H Calcium 10.5 H D AST 12 ALT 8 Alkaline Phosphatase 95 Triglycerides 163 H Cholesterol 223 H LDL Cholesterol, Calc 142 H HDL Cholesterol 49 Vitamin B12 1329 H 25-OH Vitamin D Total 7.7 L TSH 0.76 Ur Specific [place] 1.020 Urine Protein Negative Urine Glucose (UA) Negative Urine Blood Negative Urine Nitrite Negative Ur Leukocyte Esterase Negative Assessment and Plan Assessment & Plan (1) Primary cancer of right lower lobe of lung: Onset Date: ~04/2022 Comment: (Stage IIB, 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, pT3 pNo or stage IIB Patient completed chemotherapy for his lung cancer last year (2022) Had a negative follow up chest CT done at [facility] in April 2023 - he will be getting follow up chest CT every 6 months x 2 years, then repeat chest CT every 2 to 3 years if imaging studies remain negative Follow up with oncology and with thoracic surgery as scheduled for continuing surveillance (2) Chronic kidney disease, stage III (moderate): Code(s): N18.30 - Chronic kidney disease, stage 3 unspecified Qualifiers: Chronic kidney disease stage 3 subtype: stage 3b (GFR 30-44) Qualified Code(s): N18.32 - Chronic kidney disease, stage 3b Plan: Patient's renal function currently appears stable He is reminded to avoid taking any NSAIDs; may take Tylenol PRN instead for pain but no more than 4 tablets a day Follow up with nephrology (Dr. Dominguez) as scheduled (3) Anemia: Code(s): D64.9 - Anemia, unspecified Qualifiers: Anemia type: other cause Other causes of anemia: antineoplastic chemotherapy Qualified Code(s): D64.81 - Anemia due to antineoplastic chemotherapy; T45.1X5A - Adverse effect of antineoplastic and immunosuppressive drugs, initial encounter Plan: Corrected on his recent labs (H/H = 14.5/43.6) Will recheck his labs and CBC in 3 months for follow up (4) Benign essential hypertension: Code(s): I10 - Essential (primary) hypertension Plan: Reinforced low sodium diet - goal is systolic BP of at least 130 mm or less Continue Losartan 50 mg QD - dose was futher reduced by nephrology a couple of weeks ago Used to take Amlodipine 5 mg QD as well but this was HELD due to low BP and recurrent dizziness/orthostasis and eventually discontinued Patient is reminded to continue monitoring his BP regularly (5) Pure hypercholesterolemia: Code(s): E78.00 - Pure hypercholesterolemia, unspecified Plan: Results of his labs done a couple of days reviewed and discussed with patient - he is advised that his cholesterol level, especially his LDL cholesterol, have increased significantly from previous and is now over 140 mg/dL Reinforced low cholesterol diet Will recommend he start taking cholesterol-lowering medications to which patient agreed to; will start him on Atorvastatin 10 mg QD Will recheck his labs and fasting lipids in 3 months for follow up (6) Chronic obstructive pulmonary disease (COPD): Code(s): J44.9 - Chronic obstructive pulmonary disease, unspecified Qualifiers: COPD type: unspecified COPD Qualified Code(s): J44.9 - Chronic obstructive pulmonary disease, unspecified Plan: Continue Spiriva Respimat 1.25 mg 2 inhalations once a day and Albuterol HFA 2 puffs 4 times a day PRN Was previously on Incruse Ellipta but had to be switched back to Spiriva due to formulary restrictions (7) Impaired fasting glucose: Code(s): R73.01 - Impaired fasting glucose Plan: In-office HgbA1c done today is at 5.7% (HgbA1c was normal at 5.34% when checked back in November 2021) Reinforced low calorie diet/exercise as tolerated (8) Chronic gastritis without bleeding: Code(s): K29.50 - Unspecified chronic gastritis without bleeding Qualifiers: Gastritis type: unspecified gastritis Qualified Code(s): K29.50 - Unspecified chronic gastritis without bleeding Plan: S/P EGD in September 2018 Continue Omeprazole 20 mg BID Follow up with GI (Dr. 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 EMG in the right L4-S1 innervated muscles were normal (10) Vitamin B12 deficiency: Code(s): E53.8 - Deficiency of other specified B group vitamins Plan: Continue Vitamin B12 tablets 1000 mcg QOD Will recheck his Vitamin B12 level in 3 months for follow up (11) Folate deficiency: Code(s): E53.8 - Deficiency of other specified B group vitamins Plan: Continue Folic Acid 1 mg QD (12) Vitamin D deficiency: Code(s): E55.9 - Vitamin D deficiency, unspecified Plan: He is advised that his Vitamin D level is still very low on his recent labs He was supposed to be taking Vitamin D3 1000 units QD but admits that he is not taking it Will start him now on Vitamin D3 2000 units QD Will recheck his Vitamin D level in 3 months for follow up Plan Follow up in 3 months Orders: Orders Complete Blood Count Auto Diff 3 Months D64.9 - Anemia, unspecified UA CC w/rflx Micro + Cult 3 Months R30.0 - Dysuria Vitamin B12 and Folate 3 Months E53.8 - Deficiency of other specified B group vitamins AMB Hemoglobin A1c 11/05/23 R73.09 - Other abnormal glucose Hemoglobin A1c 3 Months R73.01 - Impaired fasting glucose Lipid Panel 3 Months E78.00 - Pure hypercholesterolemia, unspecified Comprehensive [employer] Panel Fast 3 Months E78.00 - Pure hypercholesterolemia, unspecified Microalbumin, Random (w Creat) 3 Months E11.9 - Type 2 diabetes mellitus without complications TSH reflex Free T4 3 Months E78.00 - Pure hypercholesterolemia, unspecified Vitamin D 25-OH Total 3 Months E55.9 - Vitamin D deficiency, unspecified Medications: New atorvastatin 10 mg PO BEDTIME 90 days 90 tabs 1RF Coding Level of Care Code Est Pt Level 4 (26216) Diagnoses Primary cancer of right lower lobe of lung C34.31 Stage 3b chronic kidney disease N18.32 Chronic kidney disease stage 3 subtype: stage 3b (GFR 30-44) Anemia due to antineoplastic chemotherapy D64.81; T45.1X5A Anemia type: other cause Other causes of anemia: antineoplastic chemotherapy Benign essential hypertension I10 Pure hypercholesterolemia E78.00 Chronic obstructive pulmonary disease, unspecified COPD type J44.9 COPD type: unspecified COPD Impaired fasting glucose R73.01 Chronic gastritis without bleeding, unspecified gastritis type K29.50 Gastritis type: unspecified gastritis Neuropathy G62.9 Vitamin B12 deficiency E53.8 Folate deficiency E53.8 Vitamin D deficiency E55.9
[2023-11-05 10:57] VITALS: BP 146/86; PULSE 92; O2SAT 95; BMI 24.9
== END 2023-11-05 11:25 | disposition home or self-care (01) ==
PROVIDERS: PCP Internal Medicine; Visit Provider Internal Medicine
DX: E11.9 Type 2 diabetes mellitus without complications (principal)
CPT/HCPCS: 83036; 99214

== ENCOUNTER 2024-03-15 07:39 | Outpatient (REF) | payer MEDICARE, OTHER, SELFPAY ==
[2024-03-15 08:04] LABS: MANUAL DIFF FLAG NO
[2024-03-15 08:25] LABS: Basophils Absolute Auto 0.1 X10*3/uL (0.0-0.2); Basophils Percent Auto 1.5 % (0-2); Eosinophils Absolute Auto 0.2 X10*3/uL (0.0-0.4); Eosinophils Percent Auto 3.5 % (0-4); Hematocrit 36.8 % (42.0-52.0); Hemoglobin 12.1 g/dl (14.0-18.0); Imm Gran Abs Auto 0.01 X10*3/uL (0.00-0.03); Imm Gran Pct Auto 0.2 % (0.0-0.4); Lymphocytes Absolute Auto 1.3 X10*3/uL (1.2-4.9); Lymphocytes Percent Auto 23.7 % (20-40); Mean Corpuscular HGB Conc 32.9 g/dl (31.0-36.0); Mean Corpuscular Volume 91.1 fL (80.0-98.0); Mean Platelet Volume 10.3 fL (9.4-12.4); Monocytes Absolute Auto 0.3 X10*3/uL (0.1-1.2); Neutrophils Absolute Auto 3.5 x10*3/uL (2.0-8.3); Neutrophils Percent Auto 65.1 % (45-73); Platelet Count 219 X10*3/uL (160-400); Red Blood Count 4.04 X10*6/uL (4.60-5.80); White Blood Count 5.4 X10*3/uL (4.8-10.8)
[2024-03-15 08:30] LABS: Appearance Urine Clear; Color Urine Yellow; Glucose Urine UA Negative (Negative); Leukocyte Esterase Urine Negative (Negative); Nitrite Urine Negative (Negative); Specific Gravity - Urine >= 1.030 (1.005-1.025); UMIC TRIGGER UACC YES; Urine Blood Negative (Negative); Urine Ketones Negative (Negative); Urine Protein 30 (1+) mg/dL (Neg-Trace)
[2024-03-15 08:32] LABS: Bacteria Urine None Seen (None Seen); Hyaline Casts Urine 0-2 /LPF (0-2); RBC Urine 0-2 /HPF (0-2); Squamous Epithelial Cell Urine 0-2 /HPF (0-2); WBC Urine 0-5 /HPF (0-5)
[2024-03-15 08:36] LABS: Estimated Average Glucose 105 mg/dL; Hemoglobin A1c % 5.3 % (<6.0)
[2024-03-15 08:52] LABS: Creatinine Urine 197.61 mg/dL; Microalbum/Creatinine Ratio Ur 5.5 ug/mg cr (<30)
[2024-03-15 08:56] LABS: Alanine Aminotransferase 7 U/L (0-40); Albumin Level 4.1 g/dL (3.5-5.0); Alkaline Phosphatase 89 U/L (39-117); Anion Gap 13 (12-20); Aspartate Amino Transferase 10 U/L (5-37); Bilirubin Total 0.6 mg/dL (0.0-1.0); Blood Urea Nitrogen 26 mg/dL (9-16); Calcium 9.3 mg/dL (8.4-10.2); Carbon Dioxide 17 mmol/L (22-29); Chloride 114 mmol/L (96-108); Cholesterol 133 mg/dL (<200); Estimated Glomerular Filt Rate 41; Glucose Fasting 149 mg/dL (60-99); HDL Cholesterol 41 mg/dL (>40); LDL Cholesterol Calculated 67 mg/dL (<100); Potassium 3.6 mmol/L (3.3-5.1); Sodium 140 mmol/L (135-145); Total Protein 6.3 g/dL (6.5-8.0); Triglycerides 125 mg/dL (<150)
[2024-03-15 09:13] LABS: TSH reflex Free T4 1.24 uIU/mL (0.32-4.0); Vitamin D 25-OH Total 47.9 ng/mL (>30)
[2024-03-15 09:28] LABS: Folate > 20.0 ng/mL (> or = 4.0); Vitamin B12 1886 pg/mL (200-900)
== END 2024-03-15 07:40 | disposition home or self-care (01) ==
LOC: HO.LAB 07:39
PROVIDERS: PCP Internal Medicine; Visit Provider Internal Medicine
DX: E78.00 Pure hypercholesterolemia, unspecified (principal); R30.0 Dysuria; E55.9 Vitamin D deficiency, unspecified; E53.8 Deficiency of other specified B group vitamins; E11.9 Type 2 diabetes mellitus without complications
CPT/HCPCS: 36415; 80053; 80061; 81001; 82043; 82306; 82570; 82607; 82746; 83036; 84443; 85025

== ENCOUNTER 2024-03-16 09:23 | Outpatient (AMB) | payer MEDICARE, OTHER, SELFPAY ==
[2024-03-16 09:24] VITALS: BP 124/82; PULSE 83; O2SAT 97; BMI 24.7
--- NOTE | 2024-03-16 09:24 | A.OFFPC_ITS ---
Vital Signs 03/16/24 09:24 Height 5 ft 7 in Weight 157 lb 8 oz BMI 24.7 BP 124/82 Blood Pressure Location Lt brachial Position Sitting Pulse 83 Pulse Source Pulse Oximeter Pulse Oximetry (%) 97 Oxygen Delivery Method Room Air Intake Visit Reasons: 3 Month F/U Residential Care Officer Required: No Accompanied by: Self / Same As Patient Allergies No Known Allergies [No Known Allergies*] Allergy (Verified 03/16/24 10:02) Medication List - Last Reconciled 03/16/24 by Dario Reed MD albuterol sulfate 90 mcg/actuation 2 puffs inhalation Q4-6H PRN 90 days atorvastatin 10 mg PO BEDTIME 90 days bisacodyl (Dulcolax (bisacodyl)) 10 mg (2 x 5 mg) PO ONCE 5 days cholecalciferol (vitamin D3) 50 mcg PO DAILY 90 days cyanocobalamin (vitamin B-12) ER 1,000 mcg PO DAILY 90 days folic acid 1 mg PO DAILY losartan 50 mg PO DAILY omeprazole 20 mg PO BID 90 days polyethylene glycol 3350 (Miralax) 17 grams PO DAILY 1 day tiotropium bromide 1.25 mcg/actuation (Spiriva Respimat) 2 puffs inhalation DAILY Tobacco use date assessed: 03/16/24 Fall risk assessment: No Falls in past year Last assessed Fall Risk: 03/16/24 Dental Screening Dental Screen Date: 03/16/24 Did you have a dental visit in the last 12 months?: No Did you have a dental problem in the last 6 months where you did not have access to dental care?: No Was dental information given to patient?: No HPI 3 Month F/U HPI Details Patient comes in today for his follow up visit States that he feels okay He denies any headaches or dizziness Denies any chest pains, no increased SOB No nausea/vomiting, no abdominal pain No change in bowel habits noted He had his follow up labs done yesterday - to discuss his results ON LICENSE OF [facility] Medical History Chronic kidney disease, stage III (moderate) Primary cancer of right lower lobe of lung (~04/2022) Personal history of nicotine dependence Tubular adenoma of colon (~2011) Cough Overweight (BMI 25.0-29.9) Folate deficiency Vitamin B12 deficiency Neuropathy Chronic gastritis without bleeding Impaired fasting glucose Chronic obstructive pulmonary disease (COPD) Pure hypercholesterolemia Benign essential hypertension Surgical History History of lobectomy of lung History of bronchoscopy History of colonoscopy History of esophagogastroduodenoscopy (EGD) History of laparoscopic cholecystectomy Family History Father Hypertension Mother Lung cancer Maternal Aunt Breast cancer Family/Other Hypertension Heart disease Social History Housing: House Alcohol intake: never Patient Tobacco Use Status: Former Tobacco user e-Cigarette/Vaping Use: Never Used Second Hand Smoke Exposure: Yes service: No Current occupational status: unemployed Cognitive needs: No Hearing needs: No Vision needs: Yes Questionnaire PHQ-9 Over the last 2 weeks, how often have you been bothered by any of the following problems? 1. Little interest or pleasure in doing things: not at all 2. Feeling down, depressed, or hopeless: not at all 3. Trouble falling or staying asleep, or sleeping too much: not at all 4. Feeling tired or having little energy: not at all 5. Poor appetite or overeating: not at all 6. Feeling bad about yourself - or that you are a failure or have let yourself or your family down: not at all 7. Trouble concentrating on things, such as reading the newspaper or watching television: not at all 8. Moving or speaking so slowly that other people could have noticed. Or the opp osite - being so fidgety or restless that you have been moving around a lot more than usual: not at all 9. Thoughts that you would be better off or of hurting yourself in some way: not at all Total score: 0 Depression Screening Interpretation: Negative Depression Screening Done: Yes 18077 - PHQ-9 Billing: Yes Source: Developed by Drs. Dayron Noriega, Batool Echeverria, Tom Will and colleagues, with an educational blayne from [employer]. Thrive Questionnaire Date Thrive assessed: 03/16/24 I am a: Patient What is your living situation today?: I have a steady place to live Within the past 12 months, did the food you bought not last and you didn't have the money to get more?: Never true Within the past 12 months, did you worry whether your food would run out before you got money to buy more?: Never true Do you have trouble paying for medicines?: No Do you have trouble getting transportation to medical appointments?: No Do you have trouble paying your heating and electricity bill?: No Do you have trouble taking care of your child, family member or friend?: No Do you have trouble with day-to-day activities such as bathing, preparing meals, shopping, managing finances, etc.?: No Are you currently unemployed and looking for a job?: No Are you interested in more education?: No Please select the resources that you would like help with: None Currently or been in a relationship where the following occur: No concerns reported THRIVE Score: 0 AUDIT C Alcohol Use Questionnaire (AUDIT-C) 1. How often do you have a drink containing alcohol?: Never 3. How often do you have six or more drinks on one occasion?: Never Total Score: 0 Score Reviewed/Action Taken: Yes ZACH-7 AMB Questionnaire ZACH-7 Date ZACH - 7 assessed: 03/16/24 Feeling nervous, anxious, or on edge: 0 = Not at all Not being able to stop or control worryin = Not at all Worrying too much about different things: 0 = Not at all Trouble relaxin = Not at all Being so restless that it is hard to sit still: 0 = Not at all Becoming easily annoyed or irritable: 0 = Not at all Feeling afraid as if something awful might happen: 0 = Not at all Total ZACH-7 score (0-4 normal; 5-9 mild; 10-14 moderate; 15-21 severe): 0 Source: Developed by Drs. Dayron Noriega, Batool Echeverria, Tom Will and colleagues, with an educational blayne from [employer]. Review of Systems Const Denies chills, Denies fatigue, Denies fever(s) and Denies headache(s) ENT Denies dysphagia, Denies dizziness, Denies otalgia, Denies headache(s), Denies neck pain, Denies odynophagia and Denies sore throat Card Denies chest pain, Denies palpitations and Denies dyspnea Resp Denies chest congestion, Denies cough and Denies dyspnea GI Denies abdominal pain, Denies constipation, Denies dysphagia, Denies heartburn, Denies diarrhea, Denies nausea, Denies odynophagia and Denies vomiting Denies dysuria, Denies nocturia and Denies urinary frequency Musc Denies back pain and Denies neck pain Skin/Breast Denies rash Neuro Denies dizziness and Denies headache(s) Endo Denies fatigue and Denies palpitations Physical exam (Primary Care) Vital Signs: Last Vital Signs Pulse 83 03/16/24 09:24 BP 124/82 03/16/24 09:24 Pulse Ox 97 03/16/24 09:24 Oxygen Delivery Method Room Air 03/16/24 09:24 BMI result Body Mass Index 24.7 Tobacco/Smoking Status: Tobacco use Status Tobacco use date assessed 03/16/24 03/16/24 09:30 Patient Tobacco Use Status Former Tobacco user 03/16/24 09:30 e-Cigarette/Vaping Use Never Used 03/16/24 09:30 PHQ-9: PHQ-9 Score PHQ-9: Total score 0 03/16/24 09:30 Depression Screening Interpretation: Negative Thrive Assessment: Date of Thrive Assessment Date Thrive assessed 03/16/24 03/16/24 09:30 Currently or been in a relationship where the following occur: No concerns reported Const General: no acute distress and alert HENMT Ears: TM's normal bilaterally and EAC's normal Throat: Yes posterior oropharynx normal and Yes tonsils normal (no TP congestion) Neck Neck: Yes no lymphadenopathy and Yes supple Thyroid: Thyroid normal Resp Auscultation: clear to auscultation bilaterally, no rales and no wheezes Cardio Rate: regular rate Rhythm: regular rhythm Heart sounds: no murmurs GI Palpation (GI): Soft to palpation and nontender Auscultation: normal bowel sounds General: Yes no CVA tenderness Back/Spine/Pelvis Back: no CVA tenderness Skin Rashes: no rashes Extrem General: Yes no clubbing, cyanosis or edema Results Reviewed Results Reviewed: Laboratory Tests 03/15/24 03/15/24 07:48 08:03 WBC 5.4 Hgb 12.1 L Hct 36.8 L Plt Count 219 Sodium 140 Potassium 3.6 Creatinine 1.68 H Estimated GFR 41 Fasting Glucose 149 H Hemoglobin A1c % 5.3 Calcium 9.3 D AST 10 ALT 7 Triglycerides 125 Cholesterol 133 LDL Cholesterol, Calc 67 HDL Cholesterol 41 Vitamin B12 1886 H 25-OH Vitamin D Total 47.9 TSH 1.24 Ur Specific [place] >= 1.030 H Urine Protein 30 (1+) H Urine Glucose (UA) Negative Urine Blood Negative Urine Nitrite Negative Ur Leukocyte Esterase Negative Microalb/Creat Ratio 5.5 Assessment and Plan Assessment & Plan (1) Primary cancer of right lower lobe of lung: Onset Date: ~04/2022 Comment: (Stage IIB, 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, pT3 pNo or stage IIB Patient completed chemotherapy for his lung cancer last year (2022) He had a negative follow up chest CT done at [facility] in April 2023 and in October 2023 - he will continue to get follow up chest CT every 6 months x 2 years, then repeat chest CT every 2 to 3 years if imaging studies remain negative His right port-a-cath was removed back in November 2023 due to it no longer being necessary Follow up with oncology and with thoracic surgery as scheduled for continuing surveillance (2) Chronic kidney disease, stage III (moderate): Code(s): N18.30 - Chronic kidney disease, stage 3 unspecified Qualifiers: Chronic kidney disease stage 3 subtype: stage 3b (GFR 30-44) Qualified Code(s): N18.32 - Chronic kidney disease, stage 3b Plan: Patient's renal function currently appears stable on his recent labs He is reminded to avoid taking any NSAIDs; may take Tylenol PRN instead for pain but no more than 4 tablets a day Follow up with nephrology (Dr. Dominguez) as scheduled (3) Pure hypercholesterolemia: Code(s): E78.00 - Pure hypercholesterolemia, unspecified Plan: Results of his labs done yesterday reviewed and discussed with patient - he is advised that his cholesterol level have all improved significantly from previous Reinforced low cholesterol diet Continue Atorvastatin 10 mg QD - states that he's had no problems with the medication so far Will recheck his labs and fasting lipids in 4 months for follow up (4) Benign essential hypertension: Code(s): I10 - Essential (primary) hypertension Plan: Reinforced low sodium diet - goal is systolic BP of at least 130 mm or less Continue Losartan 50 mg QD - dose was reduced by nephrology a few months ago He used to take Amlodipine 5 mg QD as well but this was HELD due to low BP and recurrent dizziness/orthostasis and eventually discontinued Patient is reminded to continue monitoring his BP regularly (5) Anemia: Code(s): D64.9 - Anemia, unspecified Qualifiers: Anemia type: other cause Other causes of anemia: antineoplastic chemotherapy Qualified Code(s): D64.81 - Anemia due to antineoplastic chemotherapy; T45.1X5A - Adverse effect of antineoplastic and immunosuppressive drugs, initial encounter Plan: Patient is again slightly anemic on his recent labs done yesterday - H/H at 12.1/36.8 His H/H were normal at 14.5/43.6 previously Advised that this may be due to his CKD Will continue to monitor his CBC regularly (6) Chronic obstructive pulmonary disease (COPD): Code(s): J44.9 - Chronic obstructive pulmonary disease, unspecified Qualifiers: COPD type: unspecified COPD Qualified Code(s): J44.9 - Chronic obstructive pulmonary disease, unspecified Plan: Continue Spiriva Respimat 1.25 mg 2 inhalations once a day and Albuterol HFA 2 puffs 4 times a day PRN He was previously on Incruse Ellipta but had to be switched back to Spiriva due to formulary restrictions (7) Impaired fasting glucose: Code(s): R73.01 - Impaired fasting glucose Plan: His FBS was up at 149 mg/dl but his HgbA1c was normal at 5.3% on his labs done yesterday; his in-office HgbA1c was previously at 5.7% a few months ago and was at 5.34% when checked back in November 2021 Reinforced low calorie/low carb diet and exercise as tolerated Will continue to monitor his blood sugar regularly (8) Chronic gastritis without bleeding: Code(s): K29.50 - Unspecified chronic gastritis without bleeding Qualifiers: Gastritis type: unspecified gastritis Qualified Code(s): K29.50 - Unspecified chronic gastritis without bleeding Plan: S/P EGD in September 2018 Continue Omeprazole 20 mg BID Follow up with GI (Dr. 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 extremities EMG in the right L4-S1 innervated muscles were normal (10) Vitamin B12 deficiency: Code(s): E53.8 - Deficiency of other specified B group vitamins Plan: He is advised that his Vitamin B12 level is now significantly elevated at 1886 pg/ml Have instructed him to start backing off his Vitamin B12 tablets - he is appa rently taking these at 2 tablets daily and have advised him to go down to 1 tablet daily instead Will recheck his Vitamin B12 level in 4 months for follow up (11) Folate deficiency: Code(s): E53.8 - Deficiency of other specified B group vitamins Plan: Continue Folic Acid 1 mg QD (12) Vitamin D deficiency: Code(s): E55.9 - Vitamin D deficiency, unspecified Plan: His Vitamin D level is now normal on his recent labs Continue Vitamin D3 2000 units QD Plan Follow up in 4 months Orders: Orders Lipid Panel 4 Months E78.00 - Pure hypercholesterolemia, unspecified Vitamin D 25-OH Total 4 Months E55.9 - Vitamin D deficiency, unspecified Vitamin B12 and Folate 4 Months E53.8 - Deficiency of other specified B group vitamins Complete Blood Count Auto Diff 4 Months D64.9 - Anemia, unspecified Comprehensive [place]. Panel Fast 4 Months E78.00 - Pure hypercholesterolemia, unspecified Hemoglobin A1c 4 Months R73.01 - Impaired fasting glucose UA CC w/rflx Micro + Cult 4 Months R30.0 - Dysuria Coding Level of Care Code Est Pt Level 4 (72974) Complex EM visit Add On G2211 Diagnoses Primary cancer of right lower lobe of lung C34.31 Stage 3b chronic kidney disease N18.32 Chronic kidney disease stage 3 subtype: stage 3b (GFR 30-44) Pure hypercholesterolemia E78.00 Benign essential hypertension I10 Anemia due to antineoplastic chemotherapy D64.81; T45.1X5A Anemia type: other cause Other causes of anemia: antineoplastic chemotherapy Chronic obstructive pulmonary disease, unspecified COPD type J44.9 COPD type: unspecified COPD Impaired fasting glucose R73.01 Chronic gastritis without bleeding, unspecified gastritis type K29.50 Gastritis type: unspecified gastritis Neuropathy G62.9 Vitamin B12 deficiency E53.8 Folate deficiency E53.8 Vitamin D deficiency E55.9
== END 2024-03-16 10:13 | disposition home or self-care (01) ==
LOC: HO.HMCH 09:23
PROVIDERS: PCP Internal Medicine; Visit Provider Internal Medicine
DX: C34.31 Malignant neoplasm of lower lobe, right bronchus or lung (principal); N18.32 Chronic kidney disease, stage 3b; E78.00 Pure hypercholesterolemia, unspecified; J44.9 Chronic obstructive pulmonary disease, unspecified; I10 Essential (primary) hypertension; D64.81 Anemia due to antineoplastic chemotherapy; T45.1X5A Adverse effect of antineoplastic and immunosuppressive drugs, initial encounter; R73.01 Impaired fasting glucose; K29.50 Unspecified chronic gastritis without bleeding; G62.9 Polyneuropathy, unspecified; E53.8 Deficiency of other specified B group vitamins; E55.9 Vitamin D deficiency, unspecified

== ENCOUNTER → 2024-03-16 09:23 | Outpatient (BNVA) | payer MEDICARE, OTHER, SELFPAY | PROVIDERS: PCP Internal Medicine; Visit Provider Internal Medicine | DX: C34.31 Malignant neoplasm of lower lobe, right bronchus or lung (principal); D64.81 Anemia due to antineoplastic chemotherapy; T45.1X5A Adverse effect of antineoplastic and immunosuppressive drugs, initial encounter; I12.9 Hypertensive chronic kidney disease with stage 1 through stage 4 chronic kidney disease, or unspecified chronic kidney disease; N18.32 Chronic kidney disease, stage 3b; E78.00 Pure hypercholesterolemia, unspecified | CPT/HCPCS: 99212 ==

== ENCOUNTER 2024-07-12 11:31 | Outpatient (REF) | payer MEDICARE, OTHER, SELFPAY ==
[2024-07-12 11:47] LABS: MANUAL DIFF FLAG NO
[2024-07-12 12:06] LABS: Basophils Absolute Auto 0.1 X10*3/uL (0.0-0.2); Basophils Percent Auto 0.6 % (0-2); Eosinophils Absolute Auto 0.1 X10*3/uL (0.0-0.4); Eosinophils Percent Auto 1.5 % (0-4); Hematocrit 39.9 % (42.0-52.0); Hemoglobin 13.2 g/dl (14.0-18.0); Imm Gran Abs Auto 0.02 X10*3/uL (0.00-0.03); Imm Gran Pct Auto 0.3 % (0.0-0.4); Lymphocytes Absolute Auto 1.1 X10*3/uL (1.2-4.9); Lymphocytes Percent Auto 14.4 % (20-40); Mean Corpuscular HGB Conc 33.1 g/dl (31.0-36.0); Mean Corpuscular Hemoglobin 29.6 pg (27.0-33.0); Mean Corpuscular Volume 89.5 fL (80.0-98.0); Mean Platelet Volume 9.9 fL (9.4-12.4); Monocytes Absolute Auto 0.4 X10*3/uL (0.1-1.2); Monocytes Percent Auto 4.6 % (2-11); Neutrophils Absolute Auto 6.2 x10*3/uL (2.0-8.3); Neutrophils Percent Auto 78.6 % (45-73); Platelet Count 228 X10*3/uL (160-400); Red Blood Count 4.46 X10*6/uL (4.60-5.80); Red Cell Distribution Width 13.5 % (11.0-16.0); White Blood Count 7.8 X10*3/uL (4.8-10.8)
[2024-07-12 12:07] LABS: Appearance Urine Clear; Color Urine Yellow; Glucose Urine UA Negative (Negative); Leukocyte Esterase Urine Negative (Negative); Nitrite Urine Negative (Negative); PH 5.5 (5.0-9.0); Urine Blood Negative (Negative); Urine Ketones Negative (Negative); Urine Protein Trace mg/dL (Neg-Trace)
[2024-07-12 12:10] LABS: Estimated Average Glucose 111 mg/dL; Hemoglobin A1C 125.8983 umol/L; Hemoglobin A1c % 5.5 % (<6.0)
[2024-07-12 12:36] LABS: Alanine Aminotransferase 13 U/L (0-40); Albumin Level 4.6 g/dL (3.5-5.0); Alkaline Phosphatase 93 U/L (39-117); Anion Gap 9 (12-20); Aspartate Amino Transferase 15 U/L (5-37); Bilirubin Total 0.9 mg/dL (0.0-1.0); Blood Urea Nitrogen 24 mg/dL (9-16); Calcium 9.5 mg/dL (8.4-10.2); Carbon Dioxide 25 mmol/L (22-29); Chloride 112 mmol/L (96-108); Cholesterol 185 mg/dL (<200); Estimated Glomerular Filt Rate 42; Glucose Fasting 112 mg/dL (60-99); HDL Cholesterol 59 mg/dL (>40); LDL Cholesterol Calculated 105 mg/dL (<100); Potassium 4.3 mmol/L (3.3-5.1); Sodium 142 mmol/L (135-145); Total Protein 7.2 g/dL (6.5-8.0); Triglycerides 106 mg/dL (<150)
[2024-07-12 12:57] LABS: Vitamin D 25-OH Total 58.2 ng/mL (>30)
[2024-07-12 13:19] LABS: Folate > 20.0 ng/mL (> or = 4.0); Vitamin B12 1098 pg/mL (200-900)
== END 2024-07-12 11:32 | disposition home or self-care (01) ==
LOC: HO.LAB 11:31
PROVIDERS: PCP Internal Medicine; Visit Provider Internal Medicine
DX: E53.8 Deficiency of other specified B group vitamins (principal); D64.9 Anemia, unspecified; R73.01 Impaired fasting glucose; R30.0 Dysuria; E78.00 Pure hypercholesterolemia, unspecified; E55.9 Vitamin D deficiency, unspecified
CPT/HCPCS: 36415; 80053; 80061; 81003; 82306; 82607; 82746; 83036; 85025

== ENCOUNTER 2024-07-18 10:40 | Outpatient (AMB) | payer MEDICARE, OTHER, SELFPAY ==
[2024-07-18 10:51] VITALS: BP 116/80; PULSE 89; TEMP 36.4; O2SAT 96; BMI 27.1
--- NOTE | 2024-07-18 10:51 | A.OFFPC_ITS ---
Vital Signs 07/18/24 10:51 Height 5 ft 7 in Weight 173 lb 4 oz BMI 27.1 BP 116/80 Blood Pressure Location Lt brachial Position Sitting Pulse 89 Pulse Source Pulse Oximeter Temp 97.5 F Temp Source Temporal Artery Scan Pulse Oximetry (%) 96 Oxygen Delivery Method Room Air Intake Visit Reasons: CKD, hyperlipidemia, HTN Director Clinical Applications Required: No Accompanied by: Self / Same As Patient Allergies No Known Allergies [No Known Allergies*] Allergy (Verified 07/18/24 11:07) Medication List - Last Reconciled 07/18/24 by Dario Reed MD albuterol sulfate 90 mcg/actuation 2 puffs inhalation Q4-6H PRN 90 days atorvastatin 10 mg PO BEDTIME 90 days bisacodyl (Dulcolax (bisacodyl)) 10 mg (2 x 5 mg) PO ONCE 5 days cholecalciferol (vitamin D3) 50 mcg PO DAILY 90 days cyanocobalamin (vitamin B-12) ER 1,000 mcg PO DAILY 90 days folic acid 1 mg PO DAILY losartan 50 mg PO DAILY omeprazole 20 mg PO BID 90 days polyethylene glycol 3350 (Miralax) 17 grams PO DAILY 1 day Tobacco use date assessed: 07/18/24 Fall risk assessment: No Falls in past year Last assessed Fall Risk: 07/18/24 Dental Screening Dental Screen Date: 07/18/24 Did you have a dental visit in the last 12 months?: No Did you have a dental problem in the last 6 months where you did not have access to dental care?: No Was dental information given to patient?: No HPI CKD, hyperlipidemia, HTN 2 HPI Details Patient comes in today for his follow up visit States that he feels okay but reports that he was just diagnosed with recurrence of his lung cancer recently and he will be starting back on chemotherapy and radiation therapy soon and this will then be followed by immunotherapy He denies any headaches or dizziness Denies any chest pains, no SOB No nausea/vomiting, no abdominal pain No change in bowel habits noted He had his follow up labs done last week - to discuss his results [facility] Medical History (Updated 07/18/24 @ 12:24 by Dario Reed MD) Recurrent non-small cell lung cancer (NSCLC) Chronic kidney disease, stage III (moderate) Primary cancer of right lower lobe of lung (~04/2022) Personal history of nicotine dependence Tubular adenoma of colon (~2011) Cough Overweight (BMI 25.0-29.9) Folate deficiency Vitamin B12 deficiency Neuropathy Chronic gastritis without bleeding Impaired fasting glucose Chronic obstructive pulmonary disease (COPD) Pure hypercholesterolemia Benign essential hypertension Surgical History History of lobectomy of lung History of bronchoscopy History of colonoscopy History of esophagogastroduodenoscopy (EGD) History of laparoscopic cholecystectomy Family History Father Hypertension Mother Lung cancer Maternal Aunt Breast cancer Family/Other Hypertension Heart disease Social History Housing: House Alcohol intake: never Patient Tobacco Use Status: Former Tobacco user e-Cigarette/Vaping Use: Never Used Second Hand Smoke Exposure: Yes service: No Current occupational status: unemployed Cognitive needs: No Hearing needs: No Vision needs: Yes Questionnaire PHQ-9 Over the last 2 weeks, how often have you been bothered by any of the following problems? 1. Little interest or pleasure in doing things: not at all 2. Feeling down, depressed, or hopeless: not at all 3. Trouble falling or staying asleep, or sleeping too much: not at all 4. Feeling tired or having little energy: not at all 5. Poor appetite or overeating: not at all 6. Feeling bad about yourself - or that you are a failure or have let yourself or your family down: not at all 7. Trouble concentrating on things, such as reading the newspaper or watching television: not at all 8. Moving or speaking so slowly that other people could have noticed. Or the opposite - being so fidgety or restless that you have been moving around a lot more than usual: not at all 9. Thoughts that you would be better off or of hurting yourself in some way: not at all Total score: 0 Depression Screening Interpretation: Negative Depression Screening Done: Yes 65390 - PHQ-9 Billing: Yes Source: Developed by Drs. Dayron Noriega, Batool Echeverria, Tom Wlil and colleagues, with an educational blayne from [employer]. Thrive Questionnaire Date Thrive assessed: 07/18/24 I am a: Patient What is your living situation today?: I have a steady place to live Within the past 12 months, did the food you bought not last and you didn't have the money to get more?: Never true Within the past 12 months, did you worry whether your food would run out before you got money to buy more?: Never true Do you have trouble paying for medicines?: No Do you have trouble getting transportation to medical appointments?: No Do you have trouble paying your heating and electricity bill?: No Do you have trouble taking care of your child, family member or friend?: No Do you have trouble with day-to-day activities such as bathing, preparing meals, shopping, managing finances, etc.?: No Are you currently unemployed and looking for a job?: No Are you interested in more education?: No Please select the resources that you would like help with: None Currently or been in a relationship where the following occur: No concerns reported THRIVE Score: 0 AUDIT C Alcohol Use Questionnaire (AUDIT-C) 1. How often do you have a drink containing alcohol?: Never 3. How often do you have six or more drinks on one occasion?: Never Total Score: 0 Score Reviewed/Action Taken: Yes ZACH-7 AMB Questionnaire ZACH-7 Date ZACH - 7 assessed: 07/18/24 Feeling nervous, anxious, or on edge: 0 = Not at all Not being able to stop or control worryin = Not at all Worrying too much about different things: 0 = Not at all Trouble relaxin = Not at all Being so restless that it is hard to sit still: 0 = Not at all Becoming easily annoyed or irritable: 0 = Not at all Feeling afraid as if something awful might happen: 0 = Not at all Total ZACH-7 score (0-4 normal; 5-9 mild; 10-14 moderate; 15-21 severe): 0 Source: Developed by Drs. Dayron Noriega, Batool Echeverria, Tom Will and colleagues, with an educational blayne from [employer]. Review of Systems Const Denies chills, Denies fatigue, Denies fever(s) and Denies headache(s) ENT Denies dysphagia, Denies dizziness, Denies otalgia, Denies headache(s), Denies neck pain, Denies odynophagia and Denies sore throat Card Denies chest pain, Denies palpitations and Denies dyspnea Resp Denies chest congestion, Denies cough and Denies dyspnea GI Denies abdominal pain, Denies constipation, Denies dysphagia, Denies heartburn, Denies diarrhea, Denies nausea, Denies odynophagia and Denies vomiting Denies dysuria, Denies nocturia and Denies urinary frequency Musc Denies back pain, Denies arthralgias and Denies neck pain Skin/Breast Denies rash Neuro Denies dizziness and Denies headache(s) Endo Denies fatigue and Denies palpitations Physical exam (Primary Care) Vital Signs: Last Vital Signs Temp 97.5 F 07/18/24 10:51 Pulse 89 07/18/24 10:51 BP 116/80 07/18/24 10:51 Pulse Ox 96 07/18/24 10:51 Oxygen Delivery Method Room Air 07/18/24 10:51 BMI result Body Mass Index 27.1 Tobacco/Smoking Status: Tobacco use Status Tobacco use date assessed 07/18/24 07/18/24 10:56 Patient Tobacco Use Status Former Tobacco user 07/18/24 10:56 e-Cigarette/Vaping Use Never Used 07/18/24 10:56 PHQ-9: PHQ-9 Score PHQ-9: Total score 0 07/18/24 10:56 Depression Screening Interpretation: Negative Thrive Assessment: Date of Thrive Assessment Date Thrive assessed 07/18/24 07/18/24 10:56 Currently or been in a relationship where the following occur: No concerns reported Const General: no acute distress and alert HENMT Ears: TM's normal bilaterally and EAC's normal Throat: Yes posterior oropharynx normal and Yes tonsils normal (no TP congestion) Neck Neck: Yes supple and No lymphadenopathy Thyroid: Thyroid normal Resp Auscultation: clear to auscultation bilaterally, no rales and no wheezes Cardio Rate: regular rate Rhythm: regular rhythm Heart sounds: no murmurs GI Palpation (GI): Soft to palpation and nontender Auscultation: normal bowel sounds General: Yes no CVA tenderness Back/Spine/Pelvis Back: no CVA tenderness Thoracic/Lumbar Spine: No lumbar spinal tenderness Skin Rashes: no rashes Extrem General: Yes no clubbing, cyanosis or edema Results Reviewed Results Reviewed: Laboratory Tests 07/12/24 11:46 WBC 7.8 Hgb 13.2 L Hct 39.9 L Plt Count 228 Sodium 142 Potassium 4.3 Creatinine 1.65 H Estimated GFR 42 Fasting Glucose 112 H Hemoglobin A1c % 5.5 Calcium 9.5 AST 15 ALT 13 Triglycerides 106 Cholesterol 185 LDL Cholesterol, Calc 105 H HDL Cholesterol 59 Vitamin B12 1098 H 25-OH Vitamin D Total 58.2 Folate > 20.0 Ur Specific [place] 1.020 Urine Protein Trace Urine Glucose (UA) Negative Urine Blood Negative Urine Nitrite Negative Ur Leukocyte Esterase Negative Coding Level of Care Code Est Pt Level 4 (91748) Diagnoses Recurrent non-small cell lung cancer (NSCLC) C34.90 Stage 3b chronic kidney disease N18.32 Chronic kidney disease stage 3 subtype: stage 3b (GFR 30-44) Pure hypercholesterolemia E78.00 Benign essential hypertension I10 Anemia due to antineoplastic chemotherapy D64.81; T45.1X5A Anemia type: other cause Other causes of anemia: antineoplastic chemotherapy Chronic obstructive pulmonary disease, unspecified COPD type J44.9 COPD type: unspecified COPD Impaired fasting glucose R73.01 Chronic gastritis without bleeding, unspecified gastritis type K29.50 Gastritis type: unspecified gastritis Neuropathy G62.9 Vitamin B12 deficiency E53.8 Folate deficiency E53.8 Vitamin D deficiency E55.9 Overweight (BMI 25.0-29.9) E66.3 Additional Codes PHQ-9 - 84339 - PHQ-9 Billing: Yes ([id number]) Assessment & Plan Assessment & Plan (1) Recurrent non-small cell lung cancer (NSCLC): Code(s): C34.90 - Malignant neoplasm of unspecified part of unspecified bronchus or lung Category: Medical Plan: He was recently diagnosed with recurrence of lung cancer (non-small cell) and he will be starting chemotherapy and radiation therapy soon and this will then be followed by immunotherapy Follow up with oncology and thoracic surgery as scheduled (2) Chronic kidney disease, stage III (moderate): Code(s): N18.30 - Chronic kidney disease, stage 3 unspecified Category: Medical Qualifiers: Chronic kidney disease stage 3 subtype: stage 3b (GFR 30-44) Qualified Code(s): N18.32 - Chronic kidney disease, stage 3b Plan: Patient's renal function currently appears stable on his recent labs He is reminded to avoid taking any NSAIDs; may take Tylenol PRN instead for pain but no more than 4 tablets a day Follow up with nephrology (Dr. Dominguez) as scheduled (3) Pure hypercholesterolemia: Code(s): E78.00 - Pure hypercholesterolemia, unspecified Category: Medical Plan: Results of his labs done last week reviewed and discussed with patient - he is cautioned that his cholesterol level have increased significantly from previous Reinforced low cholesterol diet - he admits to poor dietary compliance over the holidays and has also gained a lot of weight since his last visit Continue Atorvastatin 10 mg QD for now but advised that we will need to go up on his dose if his numbers do not improve significantly over the next few months Will recheck his labs and fasting lipids in 4 months for follow up (4) Benign essential hypertension: Code(s): I10 - Essential (primary) hypertension Category: Medical Plan: Reinforced low sodium diet - goal is systolic BP of at least 130 mm or less Continue Losartan 50 mg QD - dose was reduced by nephrology a few months ago He used to take Amlodipine 5 mg QD as well but this was HELD due to low BP and recurrent dizziness/orthostasis and eventually discontinued Patient is again reminded to continue monitoring his BP regularly (5) Anemia: Code(s): D64.9 - Anemia, unspecified Category: Medical Qualifiers: Anemia type: other cause Other causes of anemia: antineoplastic chemotherapy Qualified Code(s): D64.81 - Anemia due to antineoplastic chemotherapy; T45.1X5A - Adverse effect of antineoplastic and immunosuppressive drugs, initial encounter Plan: Patient is again slightly anemic on his recent labs done last week - H/H at 13.2/39.9 Advised that this may be likely be due to his CKD - anemia of chronic disease Will continue to monitor his CBC regularly (6) Chronic obstructive pulmonary disease (COPD): Code(s): J44.9 - Chronic obstructive pulmonary disease, unspecified Category: Medical Qualifiers: COPD type: unspecified COPD Qualified Code(s): J44.9 - Chronic obstructive pulmonary disease, unspecified Plan: Continue Spiriva Respimat 1.25 mg 2 inhalations once a day and Albuterol HFA 2 puffs 4 times a day PRN He was previously doing well on Incruse Ellipta but had to be switched back to Spiriva due to formulary restrictions (7) Impaired fasting glucose: Code(s): R73.01 - Impaired fasting glucose Category: Medical Plan: His FBS was at 112 mg/dl but his HgbA1c was normal at 5.5% on his labs done last week Reinforced low calorie/low carb diet and exercise as tolerated Will continue to monitor his blood sugar regularly (8) Chronic gastritis without bleeding: Code(s): K29.50 - Unspecified chronic gastritis without bleeding Category: Medical Qualifiers: Gastritis type: unspecified gastritis Qualified Code(s): K29.50 - Unspecified chronic gastritis without bleeding Plan: S/P EGD in September 2018 Continue Omeprazole 20 mg BID Follow up with GI (Dr. 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 EMG in the right L4-S1 innervated muscles were normal (10) Vitamin B12 deficiency: Code(s): E53.8 - Deficiency of other specified B group vitamins Category: Medical Plan: His Vitamin B12 level was previously high at 1886 pg/ml but is now down to 1098 pg/ml Continue Vitamin B12 tablet 1 tablet daily Will recheck his Vitamin B12 level in 4 months for follow up (11) Folate deficiency: Code(s): E53.8 - Deficiency of other specified B group vitamins Category: Medical Plan: Continue Folic Acid 1 mg QD (12) Vitamin D deficiency: Code(s): E55.9 - Vitamin D deficiency, unspecified Category: Medical Plan: Continue Vitamin D3 2000 units QD (13) Overweight (BMI 25.0-29.9): Code(s): E66.3 - Overweight Category: Medical Plan: Reinforced diet/exercise as tolerated/lose weight - he has gained about 16 pounds since his last visit His states that he was eating a lot of sweets over the recent holiday season Plan Follow up in 4 months Orders: Orders Vitamin B12 and Folate 4 Months E53.8 - Deficiency of other specified B group vitamins TSH reflex Free T4 4 Months E78.00 - Pure hypercholesterolemia, unspecified Complete Blood Count Auto Diff 4 Months D64.9 - Anemia, unspecified Comprehensive [place]. Panel Fast 4 Months E78.00 - Pure hypercholesterolemia, unspecified Lipid Panel 4 Months E78.00 - Pure hypercholesterolemia, unspecified Hemoglobin A1c 4 Months R73.01 - Impaired fasting glucose Vitamin D 25-OH Total 4 Months E55.9 - Vitamin D deficiency, unspecified UA CC w/rflx Micro + Cult 4 Months R30.0 - Dysuria
== END 2024-07-18 11:26 | disposition home or self-care (01) ==
PROVIDERS: PCP Internal Medicine; Visit Provider Internal Medicine
DX: C34.90 Malignant neoplasm of unspecified part of unspecified bronchus or lung (principal); N18.32 Chronic kidney disease, stage 3b; E78.00 Pure hypercholesterolemia, unspecified; I10 Essential (primary) hypertension; D64.81 Anemia due to antineoplastic chemotherapy; T45.1X5A Adverse effect of antineoplastic and immunosuppressive drugs, initial encounter; J44.9 Chronic obstructive pulmonary disease, unspecified; R73.01 Impaired fasting glucose; K29.50 Unspecified chronic gastritis without bleeding; G62.9 Polyneuropathy, unspecified; E53.8 Deficiency of other specified B group vitamins; E55.9 Vitamin D deficiency, unspecified; E66.3 Overweight

== ENCOUNTER → 2024-07-18 10:40 | Outpatient (BNVA) | payer MEDICARE, OTHER, SELFPAY | PROVIDERS: PCP Internal Medicine; Visit Provider Internal Medicine | DX: C34.90 Malignant neoplasm of unspecified part of unspecified bronchus or lung (principal); D64.81 Anemia due to antineoplastic chemotherapy; T45.1X5A Adverse effect of antineoplastic and immunosuppressive drugs, initial encounter; I12.9 Hypertensive chronic kidney disease with stage 1 through stage 4 chronic kidney disease, or unspecified chronic kidney disease; N18.32 Chronic kidney disease, stage 3b; E78.00 Pure hypercholesterolemia, unspecified; J44.9 Chronic obstructive pulmonary disease, unspecified; R73.01 Impaired fasting glucose; K29.50 Unspecified chronic gastritis without bleeding; G62.9 Polyneuropathy, unspecified; E53.8 Deficiency of other specified B group vitamins; E55.9 Vitamin D deficiency, unspecified; E66.3 Overweight | CPT/HCPCS: 96127; 99212 ==

== ENCOUNTER 2024-11-15 09:00 | Outpatient (REF) | payer MEDICARE, OTHER, SELFPAY ==
[2024-11-15 09:19] LABS: MANUAL DIFF FLAG NO
--- OUTSIDE RECORDS SUMMARY | 2024-11-15 09:35 | XMS_ITS ---
Author Organization [facility] Address [address] [place] [address] Care Team Providers Care Node Js Developer Name Role Phone Dario Reed MD Primary Care Provider [phone]- [phone] Active Problems Problem Noted Date Diagnosed Date Non-small cell cancer of right lung 06/11/2022 Current Oncology Plans No current plan information found. Past Plans ONCOLOGY TREATMENT Plan Name Start Date Discontinue Date Treatment Medications Discontinue Reason Plan Provider Cycles SFC BCN OP PACLITAXEL / CARBOPLATIN (LUNG) 5 HRS 3 09/02/2023 albuterol (PROVENTIL)CARBOplatin (PARAPLATIN) chemo infusion (by AUC)custom IV infusion builderdexamethasone (DECADRON)dexamethasone sod phosphate PF (DECADRON)diphenhydrAMIN E (BENADRYL)EPINEPHrinefam otidine (PEPCID)famotidine (PF) (PEPCID)hydrocortisone (SOLU-CORTEF) IVmeperidine (DEMEROL) 25 MG/MLPACLitaxel (TAXOL) chemo infusionpalonosetron (ALOXI)prochlorperazine (COMPAZINE)Saline Flush 0.9 %sodium chloride (NS) 0.9 %sodium chloride 0.9% bolus (NS) Therapy Complete Vitaliy De MD 3 of 3 cycles started CISPLATIN/SETH ELBINE 022 07/24/2022 albuterol (PROVENTIL)CISplatin (PLATINOL) chemo infusion No mannitolcustom IV infusion builderdexamethasone (DECADRON) DOSE > 10 mg IVPBdexamethasone sod phosphate PF (DECADRON)diphenhydrAMIN E (BENADRYL)EPINEPHrinefam otidine (PF) (PEPCID)fosaprepitant IV Piggybackhydrocortisone (SOLU-CORTEF) IVmagnesium sulfatemeperidine (DEMEROL) 25 MG/MLpalonosetron (ALOXI)Saline Flush 0.9 %sodium chloride (NS) 0.9 %sodium chloride 0.9% bolus (NS)vinORELbine (NAVELBINE) chemo infusion Not Tolerated Vitaliy De MD 1 of 4 cycles started Radiation Treatments * No radiation treatments are documented for this patient in [facility]. Treatments may have been administered in another system.
--- OUTSIDE RECORDS SUMMARY | 2024-11-15 09:36 | XMS_ITS | Clinical Summary ---
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 Social History Tobacco Use Types Packs/Day Years Used Date Smoking Tobacco: Never Assessed Sex and Gender Information Value Date Recorded Sex Assigned at Not on file Legal Sex Male 4:01 PM EDT Gender Identity Not on file Sexual Orientation Not on file Last Filed Vital Signs Vital Sign Reading Time Taken Comments Blood Pressure 100/60 04/10/2023 2:20 PM EDT Pulse - - Temperature - - Respiratory Rate - - Oxygen Saturation - - Inhaled Oxygen Concentration - - Weight - - Height - - Body Mass Index - - Plan of Treatment Health Maintenance Due Date Last Done Comments Colorectal Cancer Screening: Annual FOBT 2006 Colorectal Cancer Screening: Colonoscopy 2006 Colorectal Cancer Screening: Sigmoidoscopy 2006 Pneumococcal Vaccine: 50+ Ye ars (1 of 1 - PCV) 11/21/2007 Influenza Vaccine (Season Ended) 2025 Hepatitis B Vaccine Aged Out No longe r eligible based on patient's age to complete this topic Insurance Medicare [employer] Care Teams Binding Cutter Synthetic Cloth Relationship Specialty Start Date End Date Dario Reed MD [address] [place] [id number] PCP - General Internal Medicine 01/30/23
--- OUTSIDE RECORDS SUMMARY | 2024-11-15 09:36 | XMS_ITS | Encounter Summary ---
Author Organization [facility] Address [address] [place] [address] Care Team Providers Care Wind Energy Project Manager Name Role Phone Dario Reed MD Primary Care Provider Reason for Visit * Reason Comments Follow-up Encounter Details Date Type Department Care Team (Latest Contact Info) Description 11/11/2024 8:45 AM EDT - 11/11/2024 11:59 PM EDT Hospital Encounter [facility] Radiation Oncology [address] [place] [phone] Merry Ta NP [address] [place] [address] Non-small cell cancer of right lung (CMS/HCC V24, CMS/HCC V28) (Primary Dx) Discharge Disposition: Home or Self Care Social History Tobacco Use Types Packs/Day Years Used Date Smoking Tobacco: Former Cigarettes Passive Smoke Exposure: Past Smokeless Tobacco: Never Alcohol Use Standard Drinks/Week Comments Never 0 (1 standard drink = 0.6 oz pur e alcohol) Sex and Gender Information Value Date Recorded Sex Assigned at Male 06/14/2024 11:46 AM EST Legal Sex Male 6:12 PM EST Gender Identity Male 06/14/2024 11:46 AM EST Sexual Orientation Straight 06/14/2024 11 :46 AM EST Occupation Industry Job Start Date Job End Date Retired Not on file Not on file Not on file documented as of this encounter Last Filed Vital Signs Vital Sign Reading Time Taken Comments Blood Pressure 147/81 11/11/2024 8:50 AM EDT Pulse 86 11/11/2024 8:50 AM EDT Temperature 36.2 ??C (97.1 ??F) 11/11/2024 8:50 AM ED T Respiratory Rate 16 11/11/2024 8:50 AM EDT Oxygen Saturation 95% 11/11/2024 8:50 AM EDT Inhaled Oxygen Concentration - - Weight 75.6 kg (166 lb 9.6 oz) 11/11/2024 8:50 A M EDT Height 170.2 cm (5' 7 ) 11/11/2024 8:50 AM EDT Body Mass Index 26.09 11/11/2024 8:50 AM EDT documented in this encounter Medications at Time of Discharge albuterol HFA (PROAIR HFA ; PROVENTIL HFA ; VENTOLIN HFA) 90 mcg/actuation inhaler Inhale 2 puffs by mouth every 4 (four) hours if needed for wheezing or shortness of breath. atorvastatin (LIPITOR) 10 mg tablet Take 1 tablet (10 mg total) by mouth at bedtime. cholecalciferol (VITAMIN D-3) 50 mcg (2,000 unit) tablet Take 1 tablet (2,000 Units total) by mouth 1 (one) time each day. cyanocobalamin (VITAMIN B-12) 500 mcg tablet Take 2 tablets (1,000 mcg total) by mouth daily. folic acid (FOLVITE) 1 mg tablet Take 1 tablet (1 mg total) by mouth daily. losartan (COZAAR) 50 mg tablet Take 1 tablet (50 mg total) by mouth daily. magnesium oxide (MAG-OX) 400 mg (241.3 elemental magnesium) tablet Take 1 tablet (400 mg total) by mouth 2 (two) times a day. 60 tablet 5 11/01/2024 omeprazole (PriLOSEC) [address] capsule Take 1 capsule (20 mg total) by mouth daily. oxyCODONE-acetam inophen (PERCOCET) 5-325 mg per tabletIndication s:Non-small cell cancer of right lung (CMS/HCC V24, CMS/HCC V28) Take 1 tablet by mouth every 4 (four) hours if needed for severe pain. Partial fill allowed Max Daily Amount: 6 tablets 120 tablet 11/07/2024 prochlorperazine (COMPAZINE) 10 mg tabletIndication s:Non-small cell cancer of right lung (CMS/HCC V24, CMS/HCC V28) Take 1 tablet (10 mg total) by mouth every 6 (six) hours if needed for nausea or vomiting. 60 tablet 3 08/26/2024 documented as of this encounter Discharge Disposition Disposition Code Departure Means Destination Home or Self Care documented in this encounter Progress Notes * Merry Ta NP - 11/11/2024 9:00 AM EDT [address] [phone] RADIATION ONCOLOGY FOLLOW-UP Staff Physician: Merry Ta NP Requesting Physician: Vitaliy De MD Date of Service: 11/11/2024 Accompanied by: Kennedi, Diagnosis: 1. Non-small cell cancer of right lung (CMS/HCC V24, CMS/HCC V28) Stage: Cancer Staging Non-small cell cancer of right lung (CMS/HCC V24, CMS/HCC V28) Staging form: Lung, AJCC 8th Edition - Clinical: Stage Unknown (rcTX, cN3, cM0) - Signed by Laura Robins MD on 08/11/2024 Prior treatment: Radiation Therapy: Right Lung Treatment Period Technique Fraction Dose Fractions Total Dose Course 1 08/25/2024-10/07/2024 (days elapsed: 43) R hilum/med/sclav 08/25/2024-10/07/2024 2 arc VMAT 200 / 200 cGy 30 / 30 6000 / 6,000 cGy HPI: Devika Stinson returns for follow-up evaluation after radiation therapy. Feeling good the last fewweeks. Had a day where he had increase in pain but has been better since. Dyspnea on exertion. Cough has improved. Sputum is usually clear. Eating well. Hydrating well. No trouble swallowing. Had some tanning and was itchy. HPI ROS: Review of Systems Constitutional: Negative for fatigue. HENT: Negative for trouble swallowing. Respiratory: Positive for shortness of breath. Negative for cough and hemoptysis. Wheezing: on exertion. Gastrointestinal: Negative for nausea and vomiting. Skin: Positive for itching. Negative for rash. Medications: Current Outpatient Medications: albuterol HFA (PROAIR HFA ; PROVENTIL HFA ; VENTOLIN HFA) 90 mcg/actuation inhaler, Inhale 2 puffs by mouth every 4 (four) hours if needed for wheezing or shortness of breath., Disp: , Rfl: atorvastatin (LIPITOR) 10 mg tablet, Take 1 tablet (10 mg total) by mouth at bedtime., Disp: , Rfl: cholecalciferol (VITAMIN D-3) 50 mcg (2,000 unit) tablet, Take 1 tablet (2,000 Units total) by mouth 1 (one) time each day., Disp: , Rfl: cyanocobalamin (VITAMIN B-12) 500 mcg tablet, Take 2 tablets (1,000 mcg total) by mouth daily., Disp: , Rfl: folic acid (FOLVITE) 1 mg tablet, Take 1 tablet (1 mg total) by mouth daily., Disp: , Rfl: losartan (COZAAR) 50 mg tablet, Take 1 tablet (50 mg total) by mouth daily., Disp: , Rfl: magnesium oxide (MAG-OX) 400 mg (241.3 elemental magnesium) tablet, Take 1 tablet (400 mg total) bymouth 2 (two) times a day., Disp: 60 tablet, Rfl: 5 omeprazole (PriLOSEC) [address] capsule, Take 1 capsule (20 mg total) by mouth daily., Disp: , Rfl: oxyCODONE-acetaminophen (PERCOCET) 5-325 mg per tablet, Take 1 tablet by mouth every 4 (four) hoursif needed for severe pain. Partial fill allowed Max Daily Amount: 6 tablets, Disp: 120 tablet, Rfl:0 prochlorperazine (COMPAZINE) 10 mg tablet, Take 1 tablet (10 mg total) by mouth every 6 (six) hoursif needed for nausea or vomiting., Disp: 60 tablet, Rfl: 3 Imported vital signs, weight Visit Vitals BP (!) 147/81 (BP Location: Left arm, Patient Position: Sitting, BP Cuff Size: Adult) Pulse 86 Temp 36.2 ??C (97.1 ??F) (Temporal) Resp 16 Ht 1.702 m (67 ) Wt 75.6 kg (166 lb 9.6 oz) SpO2 95% BMI 26.09 kg/m?? Smoking Status Former BSA 1.87 m?? No data recorded Physical Exam: Physical Exam Vitals reviewed. Constitutional: General: He is not in acute distress. Neurological: General: No focal deficit present. Mental Status: He is alert and oriented to person, place, and time. Mental status is at baseline. Psychiatric: Mood and Affect: Mood normal. Behavior: Behavior normal. Thought Content: Thought content normal. Judgment: Judgment normal. Impression: Overall doing well post radiation therapy. Symptoms of cough and sputum production have improved. Advised to continue eat healthy, hydrate well, exercise as tolerated. Seeing Dr. De 11/22/2024 with lab work prior with infusion of Durvalumab on 11/29/2024. Plan: Follow-up as needed. Further follow-up Dr. De per his recommendations documented in this encounter Plan of Treatment Upcoming Encounters Date Type Department Care Team (Late st Contact Info) Description 11/22/2024 9:30 AM EDT Office Visit [facility] Hematology Oncology [address] [place] [phone] Vitaliy De MD [address] [place] [address] 11/29/2024 8:30 AM EDT Appointment [facility] Infusion Center [address] [place] [phone] documented as of this encounter Visit Diagnoses Diagnosis Non-small cell cancer of right lung ([facility] V24, [facility] V28)- Primary documented in this encounter Discontinued Medications Medication Sig Discontinue Reason Start Date End Da te diphenhydramine-alumin qs-yquyjwwgq-nyogfcuuc ne-lidocaine (MAGIC MOUTHWASH) [phone] mg/30 mL liquid suspension Use 10 mL in the mouth or throat 6 (six) times a day. Swish and Swallow Discontinued by another clinician 09/22/2024 11/11/2024 documented as of this encounter Care Teams Wind Energy Project Manager Relationship Specialty Start Date End Date Dario Reed MD [address] [place] [address] Dr Augustin [address] [place] [address] PCP - General Internal Medicine 04/02/22 documented as of this encounter
--- OUTSIDE RECORDS SUMMARY | 2024-11-15 09:36 | XMS_ITS | Clinical Summary ---
Author Organization [facility] Address [address] [place] [address] Care Team Providers Care Tree Driller Name Role Phone Dario Reed MD Primary Care Provider [phone] Allergies No known active allergies Medications Medication Sig Dispensed Refills Start Date End Date Status amLODIPine (NORVASC) tablet 5 mg Take 1 tablet (5 mg total) by mouth daily. 0 Active vitamin B-12 (CYANOCOBALAMIN) 500 MCG tablet Take 2 tablets (1,000 mcg total) by mouth daily. 0 Active folic acid (FOLVITE) tablet 1 mg Take 1 tablet (1 mg total) by mouth daily. 0 Active losartan (COZAAR) tablet 50 mg Take 1 tablet (50 mg total) by mouth daily. 0 Active omeprazole (PriLOSEC) 20 MG capsule Take 1 capsule (20 mg total) by mouth daily. 0 Active Umeclidinium [place] 62.5 MCG/ACT AEPB Inhale into the lungs. 0 Active ondansetron (ZOFRAN) 8 MG tablet Take 1 tablet (8 mg total) by mouth every 8 (eight) hours as needed for nausea. 30 tablet 2 06/11/2022 Active dexamethasone (DECADRON) 4 MG tablet Take 2 tablets (8 mg total) by mouth 2 (two) times a day with meals. Take 2 tablets twice daily with meals x2 days starting day after cisplatin chemotherapy 16 tablet 3 06/11/2022 Active prochlorperazine (COMPAZINE) 10 MG tablet Take 1 tablet (10 mg total) by mouth every 6 (six) hours as needed. 30 tablet 2 06/25/2022 Active amoxicillin-clavul anate (Augmentin) 875-125 MG per tablet Take 1 tablet by mouth 2 (two) times a day. 20 tablet 0 08/18/2022 Active Additional Information Patient not taking.Reported on 11/16/2023 albuterol 108 (90 Base) MCG/ACT inhaler Inhale 2 puffs into the lungs every 6 (six) hours as needed for wheezing. 0 Active lidocaine-prilocai ne (EMLA) cream Apply topically as needed. 30 g 3 10/30/2023 Active atorvastatin (LIPITOR) tablet 10 mg Take 1 tablet (10 mg total) by mouth every evening. 0 Active oxyCODONE-acetamin ophen (PERCOCET) 5-325 MG per tablet Take 1 tablet by mouth every 4 (four) hours as needed for pain. 60 tablet 0 04/29/2024 Active Active Problems Problem Noted Date Diagnosed Date Non-small cell cancer of right lung 06/11/2022 Social History Tobacco Use Types Packs/Day Years Used Date Smoking Tobacco: Never Assessed Sex and Gender Information Value Date Recorded Sex Assigned at Male 09/15/2022 3:00 PM EDT Gender Identity Not on file Sexual Orientation Not on file Job Start Date Occupation Industry Not on file Not on file Not on file Last Filed Vital Signs Vital Sign Reading Time Taken Comments Blood Pressure 118/88 11/16/2023 9:33 AM EDT Pulse 96 11/16/2023 9:33 AM EDT Temperature 36.3 ??C (97.3 ??F) 11/16/2023 9:33 AM ED T Respiratory Rate 18 07/18/2022 8:00 AM EST Oxygen Saturation 100% 11/16/2023 9:33 AM EDT Inhaled Oxygen Concentration - - Weight 70.9 kg (156 lb 3.2 oz) 11/16/2023 9:33 A M EDT Height 170.2 cm (5' 7 ) 01/16/2023 9:18 AM EDT Body Mass Index 24.46 01/16/2023 9:18 AM EDT Plan of Treatment Health Maintenance Due Date Last Done Comments Hepatitis C Screening 1955 COVID-19 Vaccine (#1) 1962 Pneumococcal Vaccine (1 of 2 - PCV) 11/21/1963 Depression Screening 1969 BMI Counseling 11/21/1975 Preventative Health Evaluation 11/21/1975 DTap / Tdap / Td (1 - Tdap) 1976 Shingrix-Zoster Vaccine (1 of 2) 1976 Colon Cancer Screening (Colonoscopy) 2002 Fall Risk Assessment 2022 Influenza Vaccine (#1) 2024 RSV Adult > 60+ Yrs or Pregn ant (1 - 1-dose 75+ series) 2032 Hepatitis B Vaccines Aged Out No long er eligible based on patient's age to complete this topic RSV Ped < 20 months Aged Out No longe r eligible based on patient's age to complete this topic Care Teams Tree Driller Relationship Specialty Start Date End Date Dario Reed MD [address] [place] [address] [place] [address] PCP - General Internal Medicine 06/04/22
--- OUTSIDE RECORDS SUMMARY | 2024-11-15 09:36 | XMS_ITS | Encounter Summary ---
Author Organization [facility] Address [address] [place] [id number] Care Team Providers Care Raw Cheese Worker Name Role Phone Dario Reed MD Primary Care Provider [phone]- [phone] Encounter Details Date Type Department Care Team Description 06/27/2022 Social Work [facility] Oncology Services [address] [place] [phone] [address], [facility] Social History Tobacco Use Types Packs/Day Years Used Date Smoking Tobacco: Never Assessed Sex and Gender Information Value Date Recorded Sex Assigned at Male 09/15/2022 3:00 PM EDT Gender Identity Not on file Sexual Orientation Not on file Job Start Date Occupation Industry Not on file Not on file Not on file COVID-19 Exposure Response Date Recorded In the last 10 days, have yo u been in contact with someone who was confirmed or suspected to have Coronavirus/COVID-19? No / Unsure 06/27/2022 8:23 AM EST documented as of this encounter Plan of Treatment Not on file documented as of this encounter Visit Diagnoses Not on filedocumented in this encounter Care Teams Raw Cheese Worker Relationship Specialty Start Date End Date Dario Reed MD [address] [place] [address] [place] [address] PCP - General Internal Medicine 06/04/22 documented as of this encounter
--- OUTSIDE RECORDS SUMMARY | 2024-11-15 09:36 | XMS_ITS | Clinical Summary ---
Author Organization [facility] Address [address] [place] [phone] Phone Care Team Providers Care Literary Writer Name Role Phone Dario Reed MD Primary Care Provider [phone] Allergies No known active allergies Medications albuterol HFA (PROAIR HFA ; PROVENTIL HFA ; VENTOLIN HFA) 90 mcg/actuation inhaler Inhale 2 puffs by mouth every 4 (four) hours if needed for wheezing or shortness of breath. Active cyanocobalamin (VITAMIN B-12) 500 mcg tablet Take 2 tablets (1,000 mcg total) by mouth daily. Active folic acid (FOLVITE) 1 mg tablet Take 1 tablet (1 mg total) by mouth daily. Active losartan (COZAAR) 50 mg tablet Take 1 tablet (50 mg total) by mouth daily. Active omeprazole (PriLOSEC) [address] capsule Take 1 capsule (20 mg total) by mouth daily. Active cholecalcifero l (VITAMIN D-3) 50 mcg (2,000 unit) tablet Take 1 tablet (2,000 Units total) by mouth 1 (one) time each day. Active atorvastatin (LIPITOR) 10 mg tablet Take 1 tablet (10 mg total) by mouth at bedtime. Active prochlorperazi ne (COMPAZINE) 10 mg tabletIndicati ons:Non-small cell cancer of right lung (CMS/HCC V24, CMS/HCC V28) Take 1 tablet (10 mg total) by mouth every 6 (six) hours if needed for nausea or vomiting. 60 tablet 3 5 Active magnesium oxide (MAG-OX) 400 mg (241.3 elemental magnesium) tablet Take 1 tablet (400 mg total) by mouth 2 (two) times a day. 60 tablet 5 5 Active oxyCODONE-acet aminophen (PERCOCET) 5-325 mg per tabletIndicati ons:Non-small cell cancer of right lung ([facility] V24, [facility] V28) Take 1 tablet by mouth every 4 (four) hours if needed for severe pain. Partial fill allowed Max Daily Amount: 6 tablets 120 tablet 5 12/08/19 25 Active diphenhydramin d-tozejhuz-vgg nesium-simethi cone-lidocaine (MAGIC MOUTHWASH) [id number] 200 mg/30 mL liquid suspension Use 10 mL in the mouth or throat 6 (six) times a day. Swish and Swallow 480 mL 3 5 11/12/19 25 Discontinue d(Discontin ued by another clinician) oxyCODONE-acet aminophen (PERCOCET) 5-325 mg per tabletIndicati ons:Non-small cell cancer of right lung ([facility] V24, [facility] V28) Take 1 tablet by mouth every 4 (four) hours if needed for severe pain. Partial fill allowed Max Daily Amount: 6 tablets 120 tablet 5 10/19/19 25 Discontinue d(Reorder) oxyCODONE-acet aminophen (PERCOCET) 5-325 mg per tabletIndicati ons:Non-small cell cancer of right lung ([facility] V24, [facility] V28) Take 1 tablet by mouth every 4 (four) hours if needed for severe pain. Partial fill allowed Max Daily Amount: 6 tablets 120 tablet 5 11/08/19 25 Discontinue d(Reorder) Active Problems Problem Noted Date Diagnosed Date Hypothyroidism (acquired) 10/31/2024 Chronic renal impairment, st age 5 (moderate) ([facility] V24, [facility] V28) 07/14/2024 Gastroesophageal reflux disease without esophagi tis 07/14/2024 Chronic obstructive pulmonar y disease ([facility] V24, [facility] V28) 07/14/2024 HTN (hypertension) 07/14/2024 Mediastinal lymphadenopathy 06/06/2024 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 He does have point tenderness under his incisions on exam. He states that his pain will wake him up from night occasionally and will interfere with his activities of daily living on occasion. The patient has been on narcotics since surgery on a daily basis using at least 1 pill a day, if not up to 4 pills a day. I discussed the potential other interventions for intercostal neuralgia such as gabapentin and/or referral to a pain specialist for evaluation of possible injections. The patient would like to talk with Dr. De when he sees him on Thursday. Gabapentin may be a way of decreasing the patient's narcotic usage, this just needs to be dosed appropriately given his new diagnosis of kidney disease. Multiple pulmonary nodules 06/30/2023 Non-small cell cancer of rig ht lung (CMS/HCC V24, CMS/HCC V28) 06/11/2022 Cancer Staging:Clinical:Stage Unknown(rcTX, cN3, cM0) - Signed by Laura Robins MD on 08/11/2024 Assessment & Plan (07/28/2024 9:59 AM EST): 68-year-old male recurrent stage III lung cancer based off of mediastinal lymph node biopsies done few weeks ago. He tolerated the procedure well. I did go over the findings from his endobronchial ultrasound positive right paratracheal lymph node similar to his previous cancer that was resected stage III lung cancer. I did discuss the diagnosis, staging, and treatment of lung cancer which she seemed understand. He does already have appointments with medical oncology and radiation oncology to proceed with treatment moving forward based on this new stage for him. All questions were answered and can follow-up with me on an as-needed basis moving forward. Assessment & Plan (06/06/2024 3:00 PM EST): 68-year-old man with history of resected right lower lobe lung cancer in 2021 followed by adjuvant chemotherapy who has now developed enlarged PET avid mediastinal lymph nodes. I had a long discussion with him and his about the findings on his CAT scans and PET scans as described above. We also talked about the diagnosis, staging, and treatment of lung cancer which they seem to understand with respect to if these lymph nodes are positive it is a stage III lung cancer likely recurrent. I think the next best step would be to biopsy these lymph nodes and we will plan on doing that with an EBUS possible CME in the next 1 to 2 weeks. All questions were answered. Resolved Problems Problem Noted Date Diagnosed Date Resolved Date Malignant neoplasm of unspec ified part of right bronchus or lung (CMS/HCC V24, CMS/HCC V28) 04/10/2023 08/03/2024 Encounters Date Type Department Care Team Description 11/11/2024 8:45 AM EDT - 11/11/2024 11:59 PM EDT Hospital Encounter [facility] Radiation Oncology [address] [place] [phone] Merry Ta NP Non-small cell cancer of right lung ([facility]/HCC V24, [facility]/HCC V28) (Primary Dx) Discharge Disposition: Home or Self Care 11/01/2024 8:09 AM EDT - 11/01/2024 11:59 PM EDT Hospital Encounter [facility] Infusion Center [address] [place] [phone] Non-small cell cancer of right lung ([facility]/HCC V24, [facility]/HCC V28) (Primary Dx); Hypothyroidism (acquired) Discharge Disposition: Home or Self Care 10/27/2024 9:15 AM EDT Office Visit [facility] Hematology Oncology [address] [place] [phone] Vitaliy De MD Non-small cell cancer of right lung ([facility]/HCC V24, CMS/HCC V28) (Primary Dx); Hypothyroidism (acquired) 10/21/2024 9:08 AM EDT - 10/21/2024 11:59 PM EDT Hospital Encounter [facility] CT Scan [address] [place] [phone] Non-small cell cancer of right lung (CMS/HCC V24, CMS/HCC V28) Discharge Disposition: Home or Self Care 10/07/2024 9:00 AM EDT - 10/07/2024 11:59 PM EDT Hospital Encounter [facility] Infusion Center [address] [place] [phone] Kenrick Burrows MD Non-small cell cancer of right lung ([facility]/HCC V24, CMS/HCC V28) (Primary Dx) Discharge Disposition: Home or Self Care 10/07/2024 8:50 AM EDT - 10/07/2024 11:59 PM EDT Hospital Encounter [facility] Radiation Oncology [address] [place] [phone] Laura Robins MD Non-small cell cancer of right lung ([facility]/HCC V24, CMS/HCC V28) (Primary Dx) Discharge Disposition: Home or Self Care 10/07/2024 8:33 AM EDT - 10/07/2024 11:59 PM EDT Hospital Encounter [facility] Radiation Oncology [address] [place] [phone] Laura Robins MD Discharge Disposition: Home or Self Care 10/07/2024 Telephone [facility] Hematology Oncology [address] [place] [phone] CAP W/O appt 10/06/2024 9:00 AM EDT Office Visit [facility] Hematology Oncology [address] [place] [phone] iVtaliy De MD Non-small cell cancer of right lung ([facility]/HCC V24, [facility]/HCC V28) (Primary Dx) 10/06/2024 8:33 AM EDT - 10/06/2024 11:59 PM EDT Hospital Encounter [facility] Radiation Oncology [address] [place] [phone] Discharge Disposition: Home or Self Care 10/05/2024 8:36 AM EDT - 10/05/2024 11:59 PM EDT Hospital Encounter [facility] Radiation Oncology [address] [place] [phone] Discharge Disposition: Home or Self Care 10/04/2024 8:40 AM EDT - 10/04/2024 11:59 PM EDT Hospital Encounter [facility] Radiation Oncology [address] [place] [phone] Discharge Disposition: Home or Self Care 10/03/2024 8:51 AM EDT - 10/03/2024 11:59 PM EDT Hospital Encounter [facility] Infusion Center [address] [place] [phone] Kenrick Burrows MD Non-small cell cancer of right lung (CMS/HCC V24, CMS/HCC V28) Discharge Disposition: Home or Self Care 10/03/2024 8:35 AM EDT - 10/03/2024 11:59 PM EDT Hospital Encounter [facility] Radiation Oncology [address] [place] [phone] Discharge Disposition: Home or Self Care 09/30/2024 9:00 AM EDT - 09/30/2024 11:59 PM EDT Hospital Encounter [facility] Infusion Center [address] [place] [phone] Kenrick Burrows MD Non-small cell cancer of right lung (CMS/HCC V24, CMS/HCC V28) (Primary Dx) Discharge Disposition: Home or Self Care 09/30/2024 8:50 AM EDT - 09/30/2024 11:59 PM EDT Hospital Encounter [facility] Radiation Oncology [address] [place] [phone] Kwan Pugh MD Non-small cell cancer of right lung (CMS/HCC V24, CMS/HCC V28) (Primary Dx) Discharge Disposition: Home or Self Care 09/30/2024 8:28 AM EDT - 09/30/2024 11:59 PM EDT Hospital Encounter [facility] Radiation Oncology [address] [place] [phone] Discharge Disposition: Home or Self Care 09/29/2024 8:35 AM EDT - 09/29/2024 11:59 PM EDT Hospital Encounter [facility] Radiation Oncology [address] [place] [phone] Discharge Disposition: Home or Self Care 09/28/2024 8:37 AM EDT - 09/28/2024 11:59 PM EDT Hospital Encounter [facility] Radiation Oncology [address] [place] [phone] Discharge Disposition: Home or Self Care 09/27/2024 10:00 AM EDT Office Visit [facility] Hematology Oncology [address] [place] [phone] Vitaliy De MD Non-small cell cancer of right lung (CMS/HCC V24, CMS/HCC V28) (Primary Dx) 09/27/2024 8:32 AM EDT - 09/27/2024 11:59 PM EDT Hospital Encounter [facility] Radiation Oncology [address] [place] [phone] Discharge Disposition: Home or Self Care 09/26/2024 8:50 AM EDT - 09/26/2024 11:59 PM EDT Hospital Encounter [facility] Radiation Oncology [address] [place] [phone] Kwan Pugh MD Non-small cell cancer of right lung (CMS/HCC V24, CMS/HCC V28) (Primary Dx) Discharge Disposition: Home or Self Care 09/26/2024 8:32 AM EDT - 09/26/2024 11:59 PM EDT Hospital Encounter [facility] Radiation Oncology [address] [place] [phone] Discharge Disposition: Home or Self Care 09/22/2024 Telephone [facility] Radiation Oncology [address] [place] [phone] Fiorella Yu, MAXX covid negative 09/22/2024 Telephone [facility] Infusion Center [address] [place] [phone] Brooklyn Serra RN 09/22/2024 Telephone [facility] Radiation Oncology [address] [place] [phone] Fiorella Yu, MAXX Pt not feeling well 09/21/2024 8:45 AM EDT - 09/21/2024 11:59 PM EDT Hospital Encounter [facility] Radiation Oncology [address] [place] [phone] Discharge Disposition: Home or Self Care 09/20/2024 8:43 AM EDT - 09/20/2024 11:59 PM EDT Hospital Encounter [facility] Radiation Oncology [address] [place] [phone] Discharge Disposition: Home or Self Care 09/19/2024 8:45 AM EDT - 09/19/2024 11:59 PM EDT Hospital Encounter [facility] Radiation Oncology [address] [place] [phone] Discharge Disposition: Home or Self Care 09/16/2024 9:20 AM EDT - 09/16/2024 11:59 PM EDT Hospital Encounter [facility] Infusion Center [address] [place] [phone] Non-small cell cancer of right lung (CMS/HCC V24, CMS/HCC V28) (Primary Dx) Discharge Disposition: Home or Self Care 09/16/2024 8:45 AM EDT - 09/16/2024 11:59 PM EDT Hospital Encounter [facility] Radiation Oncology [address] [place] [phone] Laura Robins MD Non-small cell cancer of right lung (CMS/HCC V24, CMS/HCC V28) (Primary Dx) Discharge Disposition: Home or Self Care 09/16/2024 8:28 AM EDT - 09/16/2024 11:59 PM EDT Hospital Encounter [facility] Radiation Oncology [address] [place] [phone] Discharge Disposition: Home or Self Care 09/15/2024 8:37 AM EDT - 09/15/2024 11:59 PM EDT Hospital Encounter [facility] Radiation Oncology [address] [place] [phone] Discharge Disposition: Home or Self Care 09/14/2024 8:40 AM EDT - 09/14/2024 11:59 PM EDT Hospital Encounter [facility] Radiation Oncology [address] [place] [phone] Discharge Disposition: Home or Self Care 09/13/2024 8:40 AM EDT - 09/13/2024 11:59 PM EDT Hospital Encounter [facility] Radiation Oncology [address] [place] [phone] Discharge Disposition: Home or Self Care 09/12/2024 8:37 AM EDT - 09/12/2024 11:59 PM EDT Hospital Encounter [facility] Radiation Oncology [address] [place] [phone] Discharge Disposition: Home or Self Care 09/09/2024 9:15 AM EDT - 09/09/2024 11:59 PM EDT Hospital Encounter [facility] Infusion Center [address] [place] [phone] Kenrick Burrows MD Non-small cell cancer of right lung (CMS/HCC V24, CMS/HCC V28) (Primary Dx) Discharge Disposition: Home or Self Care 09/09/2024 8:50 AM EDT - 09/09/2024 11:59 PM EDT Hospital Encounter [facility] Radiation Oncology [address] [place] [phone] Laura Robins MD Non-small cell cancer of right lung (CMS/HCC V24, CMS/HCC V28) (Primary Dx) Discharge Disposition: Home or Self Care 09/09/2024 8:26 AM EDT - 09/09/2024 11:59 PM EDT Hospital Encounter [facility] Radiation Oncology [address] [place] [phone] Discharge Disposition: Home or Self Care 09/08/2024 9:45 AM EDT Lab Draw Station - [address] [phone] Non-small cell cancer of right lung (CMS/HCC V24, CMS/HCC V28) 09/08/2024 9:00 AM EDT Office Visit [facility] Hematology Oncology [address] [place] [phone] Vitaliy De MD Non-small cell cancer of right lung (CMS/HCC V24, CMS/HCC V28) (Primary Dx) 09/08/2024 8:27 AM EDT - 09/08/2024 11:59 PM EDT Hospital Encounter [facility] Radiation Oncology [address] [place] [phone] Discharge Disposition: Home or Self Care 09/07/2024 8:45 AM EDT - 09/07/2024 11:59 PM EDT Hospital Encounter [facility] Radiation Oncology [address] [place] [phone] Discharge Disposition: Home or Self Care 09/06/2024 8:40 AM EDT - 09/06/2024 11:59 PM EDT Hospital Encounter [facility] Radiation Oncology [address] [place] [phone] Discharge Disposition: Home or Self Care 09/05/2024 8:42 AM EDT - 09/05/2024 11:59 PM EDT Hospital Encounter [facility] Radiation Oncology [address] [place] [phone] Discharge Disposition: Home or Self Care 09/02/2024 9:00 AM EST - 09/02/2024 11:59 PM EST Hospital Encounter [facility] Infusion Center [address] [place] [phone] Kenrick Burrows MD Non-small cell cancer of right lung (CMS/HCC V24, CMS/HCC V28) (Primary Dx) Discharge Disposition: Home or Self Care 09/02/2024 8:45 AM EST - 09/02/2024 11:59 PM EST Hospital Encounter [facility] Radiation Oncology [address] [place] [phone] Laura Robins MD Non-small cell cancer of right lung (CMS/HCC V24, CMS/HCC V28) (Primary Dx) Discharge Disposition: Home or Self Care 09/02/2024 8:17 AM EST - 09/02/2024 11:59 PM EST Hospital Encounter [facility] Radiation Oncology [address] [place] [phone] Discharge Disposition: Home or Self Care 09/01/2024 8:38 AM EST - 09/01/2024 11:59 PM EST Hospital Encounter [facility] Radiation Oncology [address] [place] [phone] Discharge Disposition: Home or Self Care 08/31/2024 9:30 AM EST Office Visit [facility] Hematology Oncology [address] [place] [phone] Vitaliy De MD Non-small cell cancer of right lung (CMS/HCC V24, CMS/HCC V28) (Primary Dx) 08/31/2024 8:31 AM EST - 08/31/2024 11:59 PM EST Hospital Encounter [facility] Radiation Oncology [address] [place] [phone] Discharge Disposition: Home or Self Care 08/30/2024 7:44 AM EST - 08/30/2024 11:59 PM EST Hospital Encounter [facility] Radiation Oncology [address] [place] [phone] Discharge Disposition: Home or Self Care 08/29/2024 7:41 AM EST - 08/29/2024 11:59 PM EST Hospital Encounter [facility] Radiation Oncology [address] [place] [phone] Discharge Disposition: Home or Self Care 08/26/2024 9:07 AM EST - 08/26/2024 11:59 PM EST Hospital Encounter [facility] Infusion Center [address] [place] [phone] Vitaliy De MD Non-small cell cancer of right lung (CMS/HCC V24, CMS/HCC V28) (Primary Dx) Discharge Disposition: Home or Self Care 08/26/2024 8:45 AM EST - 08/26/2024 11:59 PM EST Hospital Encounter [facility] Radiation Oncology [address] [place] [phone] Laura Robins MD Non-small cell cancer of right lung (CMS/HCC V24, CMS/HCC V28) (Primary Dx) Discharge Disposition: Home or Self Care 08/26/2024 8:31 AM EST - 08/26/2024 11:59 PM EST Hospital Encounter [facility] Radiation Oncology [address] [place] [phone] Discharge Disposition: Home or Self Care 08/25/2024 11:45 AM EST - 08/25/2024 11:59 PM EST Hospital Encounter [facility] Radiation Oncology [address] [place] [phone] Laura Robins MD Discharge Disposition: Home or Self Care 08/25/2024 11:30 AM EST - 08/25/2024 11:59 PM EST Hospital Encounter [facility] Radiation Oncology [address] [place] [phone] Discharge Disposition: Home or Self Care 08/23/2024 12:29 PM EST - 08/23/2024 11:59 PM EST Hospital Encounter [facility] Radiation Oncology [address] [place] [phone] Discharge Disposition: Home or Self Care from Last 3 Months Surgical History Surgery Date Site/Laterality Comments OTHER SURGICAL HISTORY 05/21/2022 Right PROCEDURE: IA THORACOSCOPY W/LOBECTOMY SINGLE LOBE; COMMENT: RLL OTHER SURGICAL HISTORY PROCEDURE: COLONOSCOPY, SURGICAL ESOPHAGOGASTRODUODENOSCOPY PROCEDURE: IA ESOPHAGOGASTRODUODENOSCOPY TRANSORAL DIAGNOSTIC CHOLECYSTECTOMY PROCEDURE: LAPAROSCOPY, CHOLECYSTECTOMY Medical History Medical History Date Comments Benign essential hypertension DX :Benign essential hypertension Chronic gastritis without bleeding DX:Chronic gastritis without bleeding COPD (chronic obstructive pu lmonary disease) ([facility]/HCC V24, [facility]/HCC V28) DX:COPD (chronic o bstructive pulmonary disease) ([facility]) Cough DX:Cough Folate deficiency DX:Folate defi ciency History of colon polyps DX:Histo ry of colon polyps IFG (impaired fasting glucose) D X:IFG (impaired fasting glucose) Mononeuropathy DX:Mononeuropath y Personal history of nicotine dependence DX:Personal history of nicot ine dependence Pure hypercholesterolemia DX:Pur e hypercholesterolemia Tubular adenoma of colon DX:Tubu lar adenoma of colon Vitamin B12 deficiency DX:Vitami n B12 deficiency Pleomorphic carcinoma (CMS/H CC V24, 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) Cavitating mass in right low er lung lobe 05/28/2022 DX:Cavitating mass in right lower lung lobe Lymph node enlargement GERD (gastroesophageal reflu x disease) Chronic pain disorder Family History Medical History Relation Name Comments Breast cancer Aunt Hypertension Father Leukemia Father Prostate cancer Father Leukemia Father's Brother Lung cancer Mother Cancer Sister cancer of the s pine Relation Name Status Comments Aunt Other Father Father's Brother Other Mother Sister Social History Tobacco Use Types Packs/Day Years Used Date Smoking Tobacco: Former Cigarettes Passive Smoke Exposure: Past Smokeless Tobacco: Never Tobacco Cessation:Counseling Given: Not Answered Alcohol Use Standard Drinks/Week Comments Never 0 [...] file Not on file Not on file Obstetrics History Last Filed Vital Signs Vital Sign Reading [...] Mass Index 26.09 11/11/2024 8:50 AM EDT Plan of Treatment Upcoming Encounters Date Type Department Care Team (Late st Contact Info) Description 11/22/2024 9:30 AM EDT Office Visit [facility] Hematology Oncology [address] [place] [phone] Vitaliy De MD [address] [place] [phone] 11/29/2024 8:30 AM EDT Appointment [facility] [address] [facility] [address] [place] [phone] Health Maintenance Due Date Last Done Comments COVID-19 Vaccine (#1) 1962 DTaP,Tdap,and Td Vaccines (1 - Tdap) 1976 Pneumococcal Vaccine: 50+ Years (1 of 2 - PCV) 1976 Zoster Vaccines (1 of 2) 1976 RSV Immunization Adult Patients (1 - Risk 60-74 years 1-dose series) 2017 Abdominal Aortic Aneurysm (AAA) Screen 06/08/2022 Cholesterol Screening (Lipid Panel) 06/08/2022 Colorectal Cancer Screening: Colonoscopy 06/08/2022 Depression Screening 06/08/2022 Hepatitis C Screening 06/08/2022 Medicare Annual Wellness Visit 06/08/2022 Social Influencers of Health Screening 06/08/2022 Influenza Vaccine (Season Ended) 2025 Hypertension/CHF/CAD Annual BMP Blood Test 10/31/2025 10/31/2024, 10/07/2024, 09/30/2024, Additional history exists Falls Risk Assessment 11/01/2025 11/01/2024 HIB Vaccines Aged Out No longer eligi ble based on patient's age to complete this topic HPV Vaccines Aged Out No longer eligi ble based on patient's age to complete this topic Hepatitis A Vaccines Aged Out No long er eligible based on patient's age to complete this topic Hepatitis B Vaccines Aged Out No long er eligible based on patient's age to complete this topic IPV Vaccines Aged Out No longer eligi ble based on patient's age to complete this topic MMR Vaccines Aged Out No longer eligi ble based on patient's age to complete this topic Meningococcal ACWY Vaccine Aged Out N o longer eligible based on patient's age to complete this topic Meningococcal B Vaccine Aged Out No l onger eligible based on patient's age to complete this topic RSV Immunization Patients Under 20 months Aged Out No longer eligible based on patient's age to complete this topic Varicella Vaccines Aged Out No longer eligible based on patient's age to complete this topic Procedures Procedure Name Priority Date/Time Associated Diagnosis Comments CBC WITH AUTO DIFFERENTIAL Routine 10/31/2024 9:02 AM EDT Non-small cell cancer of right lung (CMS/HCC V24, CMS/HCC V28) THYROID STIMULATING HORMONE Routine 10/31/2024 9:02 AM EDT Hypothyroidism (acquired) MAGNESIUM Routine 10/31/2024 9:02 AM EDT Non-small cell cancer of right lung (CMS/HCC V24, CMS/HCC V28) COMPREHENSIVE METABOLIC PANEL Routine 10/31/2024 9:02 AM EDT Non-small cell cancer of right lung (CMS/HCC V24, CMS/HCC V28) CBC AND DIFFERENTIAL Routine 10/31/2024 9:02 AM EDT Non-small cell cancer of right lung (CMS/HCC V24, CMS/HCC V28) CT CHEST/ABDOMEN/PELVIS WO CONTRAST Routine 10/21/2024 9:32 AM EDT Non-small cell cancer of right lung (CMS/HCC V24, CMS/HCC V28) CBC WITH AUTO DIFFERENTIAL STAT 10/07/2024 9:43 AM EDT Non-small cell cancer of right lung (CMS/HCC V24, CMS/HCC V28) COMPREHENSIVE METABOLIC PANEL STAT 10/07/2024 9:43 AM EDT Non-small cell cancer of right lung (CMS/HCC V24, CMS/HCC V28) MAGNESIUM STAT 10/07/2024 9:43 AM EDT Non-small cell cancer of right lung (CMS/HCC V24, CMS/HCC V28) CBC AND DIFFERENTIAL STAT 10/07/2024 9:43 AM EDT Non-small cell cancer of right lung (CMS/HCC V24, CMS/HCC V28) RAD ONC MSQ TREATMENT SUMMARY Routine 10/07/2024 8:52 AM EDT RAD ONC MSQ TREATMENT SUMMARY Routine 10/06/2024 8:54 AM EDT RAD ONC MSQ TREATMENT SUMMARY Routine 10/05/2024 8:50 AM EDT RAD ONC MSQ TREATMENT SUMMARY Routine 10/04/2024 8:50 AM EDT MAGNESIUM STAT 10/03/2024 9:03 AM EDT Non-small cell cancer of right lung (CMS/HCC V24, CMS/HCC V28) RAD ONC MSQ TREATMENT SUMMARY Routine 10/03/2024 8:48 AM EDT CBC WITH AUTO DIFFERENTIAL Routine 09/30/2024 9:21 AM EDT Non-small cell cancer of right lung (CMS/HCC V24, CMS/HCC V28) MAGNESIUM Routine 09/30/2024 9:21 AM EDT Non-small cell cancer of right lung (CMS/HCC V24, CMS/HCC V28) COMPREHENSIVE METABOLIC PANEL Routine 09/30/2024 9:21 AM EDT Non-small cell cancer of right lung (CMS/HCC V24, CMS/HCC V28) CBC AND DIFFERENTIAL Routine 09/30/2024 9:21 AM EDT Non-small cell cancer of right lung (CMS/HCC V24, CMS/HCC V28) RAD ONC MSQ TREATMENT SUMMARY Routine 09/30/2024 8:51 AM EDT RAD ONC MSQ TREATMENT SUMMARY Routine 09/29/2024 8:54 AM EDT RAD ONC MSQ TREATMENT SUMMARY Routine 09/28/2024 9:01 AM EDT RAD ONC MSQ TREATMENT SUMMARY Routine 09/27/2024 8:52 AM EDT RAD ONC MSQ TREATMENT SUMMARY Routine 09/26/2024 8:54 AM EDT RAD ONC MSQ TREATMENT SUMMARY Routine 09/21/2024 8:55 AM EDT RAD ONC MSQ TREATMENT SUMMARY Routine 09/20/2024 8:53 AM EDT RAD ONC MSQ TREATMENT SUMMARY Routine 09/19/2024 8:56 AM EDT RAD ONC MSQ TREATMENT SUMMARY Routine 09/16/2024 8:45 AM EDT CBC WITH AUTO DIFFERENTIAL Routine 09/15/2024 8:58 AM EDT Non-small cell cancer of right lung (CMS/HCC V24, CMS/HCC V28) MAGNESIUM Routine 09/15/2024 8:58 AM EDT Non-small cell cancer of right lung (CMS/HCC V24, CMS/HCC V28) COMPREHENSIVE METABOLIC PANEL Routine 09/15/2024 8:58 AM EDT Non-small cell cancer of right lung (CMS/HCC V24, CMS/HCC V28) CBC AND DIFFERENTIAL Routine 09/15/2024 8:58 AM EDT Non-small cell cancer of right lung (CMS/HCC V24, CMS/HCC V28) RAD ONC MSQ TREATMENT SUMMARY Routine 09/15/2024 8:48 AM EDT RAD ONC MSQ TREATMENT SUMMARY Routine 09/14/2024 8:49 AM EDT RAD ONC MSQ TREATMENT SUMMARY Routine 09/13/2024 8:51 AM EDT RAD ONC MSQ TREATMENT SUMMARY Routine 09/12/2024 8:48 AM EDT RAD ONC MSQ TREATMENT SUMMARY Routine 09/09/2024 8:51 AM EDT CBC WITH AUTO DIFFERENTIAL Routine 09/08/2024 9:45 AM EDT Non-small cell cancer of right lung (CMS/HCC V24, CMS/HCC V28) MAGNESIUM Routine 09/08/2024 9:45 AM EDT Non-small cell cancer of right lung (CMS/HCC V24, CMS/HCC V28) COMPREHENSIVE METABOLIC PANEL Routine 09/08/2024 9:45 AM EDT Non-small cell cancer of right lung (CMS/HCC V24, CMS/HCC V28) CBC AND DIFFERENTIAL Routine 09/08/2024 9:45 AM EDT Non-small cell cancer of right lung (CMS/HCC V24, CMS/HCC V28) RAD ONC MSQ TREATMENT SUMMARY Routine 09/08/2024 8:51 AM EDT RAD ONC MSQ TREATMENT SUMMARY Routine 09/07/2024 9:01 AM EDT RAD ONC MSQ TREATMENT SUMMARY Routine 09/06/2024 9:01 AM EDT RAD ONC MSQ TREATMENT SUMMARY Routine 09/05/2024 9:06 AM EDT RAD ONC MSQ TREATMENT SUMMARY Routine 09/02/2024 8:45 AM EST CBC WITH AUTO DIFFERENTIAL Routine 09/01/2024 10:00 AM EST Non-small cell cancer of right lung (CMS/HCC V24, CMS/HCC V28) MAGNESIUM Routine 09/01/2024 10:00 AM EST Non-small cell cancer of right lung (CMS/HCC V24, CMS/HCC V28) COMPREHENSIVE METABOLIC PANEL Routine 09/01/2024 10:00 AM EST Non-small cell cancer of right lung (CMS/HCC V24, CMS/HCC V28) CBC AND DIFFERENTIAL Routine 09/01/2024 10:00 AM EST Non-small cell cancer of right lung (CMS/HCC V24, CMS/HCC V28) RAD ONC MSQ TREATMENT SUMMARY Routine 09/01/2024 8:52 AM EST RAD ONC MSQ TREATMENT SUMMARY Routine 08/31/2024 8:53 AM EST RAD ONC MSQ TREATMENT SUMMARY Routine 08/30/2024 7:55 AM EST RAD ONC MSQ TREATMENT SUMMARY Routine 08/29/2024 8:01 AM EST CBC WITH AUTO DIFFERENTIAL Routine 08/26/2024 9:18 AM EST Non-small cell cancer of right lung (CMS/HCC V24, CMS/HCC V28) MAGNESIUM Routine 08/26/2024 9:18 AM EST Non-small cell cancer of right lung (CMS/HCC V24, CMS/HCC V28) COMPREHENSIVE METABOLIC PANEL Routine 08/26/2024 9:18 AM EST Non-small cell cancer of right lung (CMS/HCC V24, CMS/HCC V28) CBC AND DIFFERENTIAL Routine 08/26/2024 9:18 AM EST Non-small cell cancer of right lung (CMS/HCC V24, CMS/HCC V28) RAD ONC MSQ TREATMENT SUMMARY Routine 08/26/2024 8:45 AM EST RAD ONC MSQ TREATMENT SUMMARY Routine 08/25/2024 12:05 PM EST from Last 3 Months Results * (ABNORMAL) CBC auto differential (10/31/2024 9:02 AM EDT) Only the most recent of7 resultswithin the time period is included. WBC 3.6(L) 4.8 - 10.8 K/[facility] LAB HEMETOLOGY METHOD 10/31/2024 11:30 AM EDT [facility] RBC 3.30(L) 4.50 - 5.50 M/mcL LAB HEMETOLOGY METHOD 10/31/2024 11:30 AM [facility] Hemoglobin 10.0(L) 13.5 - 17.5 g/dL LAB HEMETOLOGY METHOD 10/31/2024 11:30 AM [facility] Hematocrit 31.5(L) 42.0 - 54.0 % LAB HEMETOLOGY METHOD 10/31/2024 11:30 AM [facility] MCV 94.6 79.0 - 98.0 FL LAB HEMETOLOGY METHOD 10/31/2024 11:30 AM [facility] MCH 30.0 27.0 - 32.0 pcg LAB HEMETOLOGY METHOD 10/31/2024 11:30 AM [facility] MCHC 31.7(L) 32.0 - 37.0 g/dL LAB HEMETOLOGY METHOD 10/31/2024 11:30 AM [facility] RDW 17.7(H) 11.0 - 15.0 % LAB HEMETOLOGY METHOD 10/31/2024 11:30 AM [facility] Platelets 134 130 - 400 K/mcL LAB HEMETOLOGY METHOD 10/31/2024 11:30 AM [facility] MPV 9.7 7.0 - 11.0 FL LAB HEMETOLOGY METHOD 10/31/2024 11:30 AM [facility] NRBC 0.0 <1.0 % LAB HEMETOLOGY METHOD 10/31/2024 11:30 AM [facility] NRBC Absolute 0.00 <0.10 K/mcL LAB HEMETOLOGY METHOD 10/31/2024 11:30 AM [facility] Neutrophils Relative 76.7 % LAB HEMETOLOGY METHOD 10/31/2024 11:30 AM [facility] Lymphocytes Relative 9.9 % LAB HEMETOLOGY METHOD 10/31/2024 11:30 AM [facility] Monocytes Relative 9.9 % LAB HEMETOLOGY METHOD 10/31/2024 11:30 AM [facility] Eosinophils Relative 1.9 % LAB HEMETOLOGY METHOD 10/31/2024 11:30 AM [facility] Basophils Relative 0.8 % LAB HEMETOLOGY METHOD 10/31/2024 11:30 AM [facility] Immature Granulocytes Relative 0.8 % LAB HEMETOLOGY METHOD 10/31/2024 11:30 AM [facility] Neutrophils Absolute 2.77 1.50 - 7.00 K/mcL LAB HEMETOLOGY METHOD 10/31/2024 11:30 AM [facility] Lymphocytes Absolute 0.36(L) 1.00 - 5.00 K/mcL LAB HEMETOLOGY METHOD 10/31/2024 11:30 AM [facility] Monocytes Absolute 0.36 0.20 - 1.00 K/mcL LAB HEMETOLOGY METHOD 10/31/2024 11:30 AM [facility] Eosinophils Absolute 0.07 0.00 - 0.50 K/mcL LAB HEMETOLOGY METHOD 10/31/2024 11:30 AM [facility] Basophils Absolute 0.03 0.00 - 0.20 K/mcL LAB HEMETOLOGY METHOD 10/31/2024 11:30 AM [facility] Immature Granulocytes Absolute 0.03 0.00 - 0.03 K/mcL LAB HEMETOLOGY METHOD 10/31/2024 11:30 AM [facility] Blood Venous blood specimen / Unknown Venipuncture / Unknown 10/31/2024 9:02 AM EDT 10/31/2024 11:12 AM EDT us Vitaliy De MD LAB BLOOD ORDERABLES Final Result Performing Organization Address [facility]/ZIP Co de Phone Number [facility] [address] [place] [address], * Thyroid stimulating hormone (10/31/2024 9:02 AM EDT) TSH 1.08 0.40 - 4.00 mcIU/mL LAB CHEMISTRY METHOD 10/31/2024 1:01 PM EDT [facility] Blood Venous blood specimen / Unknown Venipuncture / Unknown 10/31/2024 9:02 AM EDT 10/31/2024 11:13 AM EDT us Vitaliy De MD LAB BLOOD ORDERABLES Final Result Performing Organization Address [facility] de Phone Number [facility] [address] [place] [address], * (ABNORMAL) Magnesium (10/31/2024 9:02 AM EDT) Only the most recent of8 resultswithin the time period is included. [facility] Magnesium 1.3(L) 1.9 - 2.6 mg/dL LAB CHEMISTRY METHOD 10/31/2024 11:34 AM EDT [facility] Blood Venous blood specimen / Unknown Venipuncture / Unknown 10/31/2024 9:02 AM EDT 10/31/2024 11:13 AM EDT us Vitaliy De MD LAB BLOOD ORDERABLES Final Result Performing Organization Address [facility] Co de Phone Number [facility] [address] [place] [address], [place] [phone] * (ABNORMAL) Comprehensive metabolic panel (10/31/2024 9:02 AM EDT) Only the most recent of7 resultswithin the time period is included. Sodium 144 133 - 145 mmol/L LAB CHEMISTRY METHOD 10/31/2024 11:51 AM [facility] Potassium 4.3 3.5 - 5.5 mmol/L LAB CHEMISTRY METHOD 10/31/2024 11:51 AM [facility] Chloride 111(H) 96 - 110 mmol/L LAB CHEMISTRY METHOD 10/31/2024 11:51 AM [facility] CO2 25 21 - 32 mmol/L LAB CHEMISTRY METHOD 10/31/2024 11:51 AM [facility] Anion Gap 8 3 - 11 LAB CHEMISTRY METHOD 10/31/2024 11:51 AM [facility] Glucose 106(H) 70 - 100 mg/dL LAB CHEMISTRY METHOD 10/31/2024 11:51 AM [facility] BUN 13 5 - 25 mg/dL LAB CHEMISTRY METHOD 10/31/2024 11:51 AM [facility] Creatinine 1.35(H) 0.70 - 1.30 mg/dL LAB CHEMISTRY METHOD 10/31/2024 11:51 AM [facility] eGFR 58(L) >=60 mL/min/1. 73m2 LAB CHEMISTRY METHOD 10/31/2024 11:51 AM [facility] Comment:Calculation based on the??Chronic Kidney Disease Epidemiology Collaboration (CKD-EPI) equation refit??without adjustment for race. BUN/Creatinine Ratio 9.6 LAB CHEMISTRY METHOD 10/31/2024 11:51 AM [facility] Calcium 8.7 8.5 - 10.5 mg/dL LAB CHEMISTRY METHOD 10/31/2024 11:51 AM [facility] AST (SGOT) 14 10 - 42 unit/L LAB CHEMISTRY METHOD 10/31/2024 11:51 AM [facility] ALT (SGPT) 14 10 - 60 unit/L LAB CHEMISTRY METHOD 10/31/2024 11:51 AM [facility] Alkaline Phosphatase 100 42 - 121 unit/L LAB CHEMISTRY METHOD 10/31/2024 11:51 AM EDT [facility] Total Protein 6.2 6.0 - 8.0 g/dL LAB CHEMISTRY METHOD 10/31/2024 11:51 AM EDT [facility] Albumin 3.4 3.2 - 5.0 g/dL LAB CHEMISTRY METHOD 10/31/2024 11:51 AM EDT [facility] Total Bilirubin 0.6 0.0 - 1.4 mg/dL LAB CHEMISTRY METHOD 10/31/2024 11:51 AM EDT [facility] Blood Venous blood specimen / Unknown Venipuncture / Unknown 10/31/2024 9:02 AM EDT 10/31/2024 11:13 AM EDT us Vitaliy De MD LAB BLOOD ORDERABLES Final Result [facility] [address] [place] [address], [place] [phone] * CT Chest/Abdomen/Pelvis wo Contrast (10/21/2024 9:32 AM EDT) Anatomical Region Laterality Modality Body Computed Tomogra phy 10/21/2024 2:59 PM EDT Impressions 10/21/2024 3:49 PM EDT 1. ??Right lower lobectomy. 2. ??Interval decrease in size of several mildly enlarged mediastinal lymph nodes. 3. ??Nonobstructing left lower pole renal calculus. -------- FINAL REPORT -------- Dictated By: Naren Villalpando Dictated Date: 10/21/2024 14:59 ET Assigned Physician: Naren Villalpando Reviewed and Electronically Signed By: Naren Villalpando Signed Date: 10/21/2024 15:49 ET Workstation ID: [id number] Transcribed By: Self Edit Transcribed Date: 10/21/2024 14:59 ET Narrative 10/21/2024 3:49 PM EDT PROCEDURE: CT of the chest, abdomen, and pelvis without intravenous contrast. HISTORY: Restaging lung cancer. COMPARISON: 05/09/2024. TECHNIQUE: CT of the chest, abdomen, and pelvis without contrast, with coronal and sagittal reformats. Dose length product: ??1342 mGy-cm. FINDINGS: Lungs/pleura: Right lower lobectomy. ??Slight increase in size of a trace right pleural effusion. ??Moderate centrilobular and paraseptal emphysema. ??No suspicious nodule or mass. Mediastinum/criss: A small left thyroid nodule could be better evaluated with ultrasound. ??There are several mildly large mediastinal lymph nodes. ??Some are decreased in size. ??A node in the right anterior superior mediastinum, series 4 and, image 31, measures 7 mm short axis, previously 9 mm. ??A 14 mm right pretracheal node, image 44, is not significantly changed. ??A 9 mm right precarinal node, image 46, measures 9 mm, previously 12 mm. ??No mediastinal mass or adenopathy. Evaluation of the criss is limited without contrast. No visible hilar abnormality. Thoracic vasculature: Moderate atherosclerotic calcification of the great vessels. Cardiac: Normal. Chest wall: No mass or adenopathy. Liver: Limited evaluation without intravenous contrast. No visible parenchymal abnormality. ??Multiple partially calcified nodules adjacent to the posterior inferior right hepatic lobe are unchanged. Biliary: Cholecystectomy. ??No intrahepatic ductal dilatation. ??Mild prominence of the common duct suspected to be secondary to a post cholecystectomy reservoir effect, as there is no visible ductal filling defect. Pancreas: Limited evaluation without intravenous contrast. ??Moderate diffuse parenchymal atrophy. Spleen: Limited evaluation without intravenous contrast. No visible abnormality. Adrenal glands: Normal. Kidneys: Limited evaluation without intravenous contrast. ??Moderate generalized parenchymal atrophy. ??Left lower pole cortical cysts. ??Elongated 7 mm left lower pole renal calculus. Retroperitoneum: No mass or adenopathy. Abdominal vasculature: Moderate atherosclerotic calcification. Bowel/mesentery: No obstruction or adenopathy. ??No mass or ascites. Abdominal wall: Normal. Pelvic nodes: No adenopathy. Pelvic organs: Moderately enlarged prostate gland with dystrophic calcifications. Bones: Stable superior endplate deformity at T12. ??T3 vertebral body hemangioma. ??Degenerative changes of the spine. ??No suspicious bony lesion. Procedure Note Naren Villalpando MD - 10/21/2024 PROCEDURE: CT of the chest, abdomen, and pelvis without intravenouscontrast. HISTORY: Restaging lung cancer. COMPARISON: 05/09/2024. TECHNIQUE: CT of the chest, abdomen, and pelvis without contrast, withcoronal and sagittal reformats. Dose length product: 1342 mGy-cm. FINDINGS: Lungs/pleura: Right lower lobectomy. Slight increase in size of a traceright pleural effusion. Moderate centrilobular and paraseptal emphysema.No suspicious nodule or mass. Mediastinum/criss: A small left thyroid nodule could be better evaluatedwith ultrasound. There are several mildly large mediastinal lymph nodes.Some are decreased in size. A node in the right anterior superiormediastinum, series 4 and, image 31, measures 7 mm short axis, previously9 mm. A 14 mm right pretracheal node, image 44, is not significantlychanged. A 9 mm right precarinal node, image 46, measures 9 mm,previously 12 mm. No mediastinal mass or adenopathy. Evaluation of thehila is limited without contrast. No visible hilar abnormality. Thoracic vasculature: Moderate atherosclerotic calcification of the greatvessels. Cardiac: Normal. Chest wall: No mass or adenopathy. Liver: Limited evaluation without intravenous contrast. No visibleparenchymal abnormality. Multiple partially calcified nodules adjacent tothe posterior inferior right hepatic lobe are unchanged. Biliary: Cholecystectomy. No intrahepatic ductal dilatation. Mildprominence of the common duct suspected to be secondary to a postcholecystectomy reservoir effect, as there is no visible ductal fillingdefect. Pancreas: Limited evaluation without intravenous contrast. Moderatediffuse parenchymal atrophy. Spleen: Limited evaluation without intravenous contrast. No visibleabnormality. Adrenal glands: Normal. Kidneys: Limited evaluation without intravenous contrast. Moderategeneralized parenchymal atrophy. Left lower pole cortical cysts.Elongated 7 mm left lower pole renal calculus. Retroperitoneum: No mass or adenopathy. Abdominal vasculature: Moderate atherosclerotic calcification. Bowel/mesentery: No obstruction or adenopathy. No mass or ascites. Abdominal wall: Normal. Pelvic nodes: No adenopathy. Pelvic organs: Moderately enlarged prostate gland with dystrophiccalcifications. Bones: Stable superior endplate deformity at T12. T3 vertebral bodyhemangioma. Degenerative changes of the spine. No suspicious bonylesion. IMPRESSION: 1. Right lower lobectomy. 2. Interval decrease in size of several mildly enlarged mediastinal lymphnodes. 3. Nonobstructing left lower pole renal calculus. -------- FINAL REPORT -------- Dictated By: Naren Villalpando Dictated Date: 10/21/2024 14:59 ET Assigned Physician: Naren Villalpando Reviewed and Electronically Signed By: Naren Villalpando Signed Date: 10/21/2024 15:49 ET Workstation ID: [id number] Transcribed By: Self Edit Transcribed Date: 10/21/2024 14:59 ET Vitaliy De MD IMG CT PROCEDURES Final Res ult * Rad Onc Msq Treatment Summary (10/07/2024 8:52 AM EDT) [facility] Treatment Site R hilum/med/ sclav MOSAIQ RADIATION ONCOLOGY Course Number 1 MOSAIQ RADIATION ONCOLOGY Prescribed Fractional Dose 200 cGray MOSAIQ RADIATION ONCOLOGY Prescribed Total Dose 6,000 cGray MOSAIQ RADIATION ONCOLOGY Actual Fractions Delivered 30 MOSAIQ RADIATION ONCOLOGY Actual Session Delivered Dose 200 cGray MOSAIQ RADIATION ONCOLOGY Actual Total Dose 6,000 cGray MOSAIQ RADIATION ONCOLOGY Prescribed Technique 2 arc VMAT MOSAIQ RADIATION ONCOLOGY Elapsed Days 43 MOSAIQ RADIATION ONCOLOGY Start Date 08/25/2024 MOSAIQ RADIATION ONCOLOGY Last Date 10/07/2024 MOSAIQ RADIATION ONCOLOGY Prescribed Number of Fractions 30 MOSAIQ RADIATION ONCOLOGY 10/07/2024 8:52 AM EDT Physician Radiation Oncology RADIATION ONCOLO GY ORDERABLES Final Result MOSAIQ RADIATION ONCOLOGY * Rad Onc Msq Treatment Summary (10/06/2024 8:54 AM EDT) [facility] Treatment Site R hilum/med/ sclav MOSAIQ RADIATION ONCOLOGY Course Number 1 MOSAIQ RADIATION ONCOLOGY Prescribed Fractional Dose 200 cGray MOSAIQ RADIATION ONCOLOGY Prescribed Total Dose 6,000 cGray MOSAIQ RADIATION ONCOLOGY Actual Fractions Delivered 29 MOSAIQ RADIATION ONCOLOGY Actual Session Delivered Dose 200 cGray MOSAIQ RADIATION ONCOLOGY Actual Total Dose 5,800 cGray MOSAIQ RADIATION ONCOLOGY Prescribed Technique 2 arc VMAT MOSAIQ RADIATION ONCOLOGY Elapsed Days 42 MOSAIQ RADIATION ONCOLOGY Start Date 08/25/2024 MOSAIQ RADIATION ONCOLOGY Last Date 10/06/2024 MOSAIQ RADIATION ONCOLOGY Prescribed Number of Fractions 30 MOSAIQ RADIATION ONCOLOGY 10/06/2024 8:54 AM EDT Physician Radiation Oncology RADIATION ONCRUFUS GY ORDERABLES Final Result MOSAIQ RADIATION ONCOLOGY * Rad Onc Msq Treatment Summary (10/05/2024 8:50 AM EDT) [facility] Treatment Site R hilum/med/ sclav MOSAIQ RADIATION ONCOLOGY Course Number 1 MOSAIQ RADIATION ONCOLOGY Prescribed Fractional Dose 200 cGray MOSAIQ RADIATION ONCOLOGY Prescribed Total Dose 6,000 cGray MOSAIQ RADIATION ONCOLOGY Actual Fractions Delivered 28 MOSAIQ RADIATION ONCOLOGY Actual Session Delivered Dose 200 cGray MOSAIQ RADIATION ONCOLOGY Actual Total Dose 5,600 cGray MOSAIQ RADIATION ONCOLOGY Prescribed Technique 2 arc VMAT MOSAIQ RADIATION ONCOLOGY Elapsed Days 41 MOSAIQ RADIATION ONCOLOGY Start Date 08/25/2024 MOSAIQ RADIATION ONCOLOGY Last Date 10/05/2024 MOSAIQ RADIATION ONCOLOGY Prescribed Number of Fractions 30 MOSAIQ RADIATION ONCOLOGY 10/05/2024 8:50 AM EDT Physician Radiation Oncology RADIATION ONCRUFUS GY ORDERABLES Final Result MOSAIQ RADIATION ONCOLOGY * Rad Onc Msq Treatment Summary (10/04/2024 8:50 AM EDT) Pathologist [facility] Treatment Site R hilum/med/ sclav MOSAIQ RADIATION ONCOLOGY Course Number 1 MOSAIQ RADIATION ONCOLOGY Prescribed Fractional Dose 200 cGray MOSAIQ RADIATION ONCOLOGY Prescribed Total Dose 6,000 cGray MOSAIQ RADIATION ONCOLOGY Actual Fractions Delivered 27 MOSAIQ RADIATION ONCOLOGY Actual Session Delivered Dose 200 cGray MOSAIQ RADIATION ONCOLOGY Actual Total Dose 5,400 cGray MOSAIQ RADIATION ONCOLOGY Prescribed Technique 2 arc VMAT MOSAIQ RADIATION ONCOLOGY Elapsed Days 40 MOSAIQ RADIATION ONCOLOGY Start Date 08/25/2024 MOSAIQ RADIATION ONCOLOGY Last Date 10/04/2024 MOSAIQ RADIATION ONCOLOGY Prescribed Number of Fractions 30 MOSAIQ RADIATION ONCOLOGY 10/04/2024 8:50 AM EDT Physician Radiation Oncology RADIATION ONCRUFUS GY ORDERABLES Final Result MOSAIQ RADIATION ONCOLOGY * Rad Onc Msq Treatment Summary (10/03/2024 8:48 AM EDT) Pathologist [facility] Treatment Site R hilum/med/ sclav MOSAIQ RADIATION ONCOLOGY Course Number 1 MOSAIQ RADIATION ONCOLOGY Prescribed Fractional Dose 200 cGray MOSAIQ RADIATION ONCOLOGY Prescribed Total Dose 6,000 cGray MOSAIQ RADIATION ONCOLOGY Actual Fractions Delivered 26 MOSAIQ RADIATION ONCOLOGY Actual Session Delivered Dose 200 cGray MOSAIQ RADIATION ONCOLOGY Actual Total Dose 5,200 cGray MOSAIQ RADIATION ONCOLOGY Prescribed Technique 2 arc VMAT MOSAIQ RADIATION ONCOLOGY Elapsed Days 39 MOSAIQ RADIATION ONCOLOGY Start Date 08/25/2024 MOSAIQ RADIATION ONCOLOGY Last Date 10/03/2024 MOSAIQ RADIATION ONCOLOGY Prescribed Number of Fractions 30 MOSAIQ RADIATION ONCOLOGY 10/03/2024 8:48 AM EDT Physician Radiation Oncology RADIATION ONCRUFUS GY ORDERABLES Final Result MOSAIQ RADIATION ONCOLOGY * Rad Onc Msq Treatment Summary (09/30/2024 8:51 AM EDT) Pathologist [facility] Treatment Site R hilum/med/ sclav MOSAIQ RADIATION ONCOLOGY Course Number 1 MOSAIQ RADIATION ONCOLOGY Prescribed Fractional Dose 200 cGray MOSAIQ RADIATION ONCOLOGY Prescribed Total Dose 6,000 cGray MOSAIQ RADIATION ONCOLOGY Actual Fractions Delivered 25 MOSAIQ RADIATION ONCOLOGY Actual Session Delivered Dose 200 cGray MOSAIQ RADIATION ONCOLOGY Actual Total Dose 5,000 cGray MOSAIQ RADIATION ONCOLOGY Prescribed Technique 2 arc VMAT MOSAIQ RADIATION ONCOLOGY Elapsed Days 36 MOSAIQ RADIATION ONCOLOGY Start Date 08/25/2024 MOSAIQ RADIATION ONCOLOGY Last Date 09/30/2024 MOSAIQ RADIATION ONCOLOGY Prescribed Number of Fractions 30 MOSAIQ RADIATION ONCOLOGY 09/30/2024 8:51 AM EDT Physician Radiation Oncology RADIATION ONCOLO GY ORDERABLES Final Result MOSAIQ RADIATION ONCOLOGY * Rad Onc Msq Treatment Summary (09/29/2024 8:54 AM EDT) Treatment Site R hilum/med/ sclav MOSAIQ RADIATION ONCOLOGY Course Number 1 MOSAIQ RADIATION ONCOLOGY Prescribed Fractional Dose 200 cGray MOSAIQ RADIATION ONCOLOGY Prescribed Total Dose 6,000 cGray MOSAIQ RADIATION ONCOLOGY Actual Fractions Delivered 24 MOSAIQ RADIATION ONCOLOGY Actual Session Delivered Dose 200 cGray MOSAIQ RADIATION ONCOLOGY Actual Total Dose 4,800 cGray MOSAIQ RADIATION ONCOLOGY Prescribed Technique 2 arc VMAT MOSAIQ RADIATION ONCOLOGY Elapsed Days 35 MOSAIQ RADIATION ONCOLOGY Start Date 08/25/2024 MOSAIQ RADIATION ONCOLOGY Last Date 09/29/2024 MOSAIQ RADIATION ONCOLOGY Prescribed Number of Fractions 30 MOSAIQ RADIATION ONCOLOGY 09/29/2024 8:54 AM EDT Physician Radiation Oncology RADIATION ONCOLO GY ORDERABLES Final Result MOSAIQ RADIATION ONCOLOGY * Rad Onc Msq Treatment Summary (09/28/2024 9:01 AM EDT) Pathologist [facility] Treatment Site R hilum/med/ sclav MOSAIQ RADIATION ONCOLOGY Course Number 1 MOSAIQ RADIATION ONCOLOGY Prescribed Fractional Dose 200 cGray MOSAIQ RADIATION ONCOLOGY Prescribed Total Dose 6,000 cGray MOSAIQ RADIATION ONCOLOGY Actual Fractions Delivered 23 MOSAIQ RADIATION ONCOLOGY Actual Session Delivered Dose 200 cGray MOSAIQ RADIATION ONCOLOGY Actual Total Dose 4,600 cGray MOSAIQ RADIATION ONCOLOGY Prescribed Technique 2 arc VMAT MOSAIQ RADIATION ONCOLOGY Elapsed Days 34 MOSAIQ RADIATION ONCOLOGY Start Date 08/25/2024 MOSAIQ RADIATION ONCOLOGY Last Date 09/28/2024 MOSAIQ RADIATION ONCOLOGY Prescribed Number of Fractions 30 MOSAIQ RADIATION ONCOLOGY 09/28/2024 9:01 AM EDT Physician Radiation Oncology RADIATION ONCOLO GY ORDERABLES Final Result MOSAIQ RADIATION ONCOLOGY * Rad Onc Msq Treatment Summary (09/27/2024 8:52 AM EDT) Pathologist [facility] Treatment Site R hilum/med/ sclav MOSAIQ RADIATION ONCOLOGY Course Number 1 MOSAIQ RADIATION ONCOLOGY Prescribed Fractional Dose 200 cGray MOSAIQ RADIATION ONCOLOGY Prescribed Total Dose 6,000 cGray MOSAIQ RADIATION ONCOLOGY Actual Fractions Delivered 22 MOSAIQ RADIATION ONCOLOGY Actual Session Delivered Dose 200 cGray MOSAIQ RADIATION ONCOLOGY Actual Total Dose 4,400 cGray MOSAIQ RADIATION ONCOLOGY Prescribed Technique 2 arc VMAT MOSAIQ RADIATION ONCOLOGY Elapsed Days 33 MOSAIQ RADIATION ONCOLOGY Start Date 08/25/2024 MOSAIQ RADIATION ONCOLOGY Last Date 09/27/2024 MOSAIQ RADIATION ONCOLOGY Prescribed Number of Fractions 30 MOSAIQ RADIATION ONCOLOGY 09/27/2024 8:52 AM EDT Physician Radiation Oncology RADIATION ONCOLO GY ORDERABLES Final Result Performing Organization Address City/[facility]/ZIP Co de Phone Number MOSAIQ RADIATION ONCOLOGY * Rad Onc Msq Treatment Summary (09/26/2024 8:54 AM EDT) [facility] Treatment Site R hilum/med/ sclav MOSAIQ RADIATION ONCOLOGY Course Number 1 MOSAIQ RADIATION ONCOLOGY Prescribed Fractional Dose 200 cGray MOSAIQ RADIATION ONCOLOGY Prescribed Total Dose 6,000 cGray MOSAIQ RADIATION ONCOLOGY Actual Fractions Delivered 21 MOSAIQ RADIATION ONCOLOGY Actual Session Delivered Dose 200 cGray MOSAIQ RADIATION ONCOLOGY Actual Total Dose 4,200 cGray MOSAIQ RADIATION ONCOLOGY Prescribed Technique 2 arc VMAT MOSAIQ RADIATION ONCOLOGY Elapsed Days 32 MOSAIQ RADIATION ONCOLOGY Start Date 08/25/2024 MOSAIQ RADIATION ONCOLOGY Last Date 09/26/2024 MOSAIQ RADIATION ONCOLOGY Prescribed Number of Fractions 30 MOSAIQ RADIATION ONCOLOGY 09/26/2024 8:54 AM EDT Physician Radiation Oncology RADIATION ONCOLO GY ORDERABLES Final Result MOSAIQ RADIATION ONCOLOGY * Rad Onc Msq Treatment Summary (09/21/2024 8:55 AM EDT) Pathologist [facility] Treatment Site R hilum/med/ sclav MOSAIQ RADIATION ONCOLOGY Course Number 1 MOSAIQ RADIATION ONCOLOGY Prescribed Fractional Dose 200 cGray MOSAIQ RADIATION ONCOLOGY Prescribed Total Dose 6,000 cGray MOSAIQ RADIATION ONCOLOGY Actual Fractions Delivered 20 MOSAIQ RADIATION ONCOLOGY Actual Session Delivered Dose 200 cGray MOSAIQ RADIATION ONCOLOGY Actual Total Dose 4,000 cGray MOSAIQ RADIATION ONCOLOGY Prescribed Technique 2 arc VMAT MOSAIQ RADIATION ONCOLOGY Elapsed Days 27 MOSAIQ RADIATION ONCOLOGY Start Date 08/25/2024 MOSAIQ RADIATION ONCOLOGY Last Date 09/21/2024 MOSAIQ RADIATION ONCOLOGY Prescribed Number of Fractions 30 MOSAIQ RADIATION ONCOLOGY 09/21/2024 8:55 AM EDT Physician Radiation Oncology RADIATION ONCRUFUS GY ORDERABLES Final Result MOSAIQ RADIATION ONCOLOGY * Rad Onc Msq Treatment Summary (09/20/2024 8:53 AM EDT) Pathologist [facility] Treatment Site R hilum/med/ sclav MOSAIQ RADIATION ONCOLOGY Course Number 1 MOSAIQ RADIATION ONCOLOGY Prescribed Fractional Dose 200 cGray MOSAIQ RADIATION ONCOLOGY Prescribed Total Dose 6,000 cGray MOSAIQ RADIATION ONCOLOGY Actual Fractions Delivered 19 MOSAIQ RADIATION ONCOLOGY Actual Session Delivered Dose 200 cGray MOSAIQ RADIATION ONCOLOGY Actual Total Dose 3,800 cGray MOSAIQ RADIATION ONCOLOGY Prescribed Technique 2 arc VMAT MOSAIQ RADIATION ONCOLOGY Elapsed Days MOSAIQ RADIATION ONCOLOGY Start Date 08/25/2024 MOSAIQ RADIATION ONCOLOGY Last Date 09/20/2024 MOSAIQ RADIATION ONCOLOGY Prescribed Number of Fractions 30 MOSAIQ RADIATION ONCOLOGY 09/20/2024 8:53 AM EDT Physician Radiation Oncology RADIATION ONCRUFUS GY ORDERABLES Final Result MOSAIQ RADIATION ONCOLOGY * Rad Onc Msq Treatment Summary (09/19/2024 8:56 AM EDT) Pathologist [facility] Treatment Site R hilum/med/ sclav MOSAIQ RADIATION ONCOLOGY Course Number 1 MOSAIQ RADIATION ONCOLOGY Prescribed Fractional Dose 200 cGray MOSAIQ RADIATION ONCOLOGY Prescribed Total Dose 6,000 cGray MOSAIQ RADIATION ONCOLOGY Actual Fractions Delivered 18 MOSAIQ RADIATION ONCOLOGY Actual Session Delivered Dose 200 cGray MOSAIQ RADIATION ONCOLOGY Actual Total Dose 3,600 cGray MOSAIQ RADIATION ONCOLOGY Prescribed Technique 2 arc VMAT MOSAIQ RADIATION ONCOLOGY Elapsed Days 25 MOSAIQ RADIATION ONCOLOGY Start Date 08/25/2024 MOSAIQ RADIATION ONCOLOGY Last Date 09/19/2024 MOSAIQ RADIATION ONCOLOGY Prescribed Number of Fractions 30 MOSAIQ RADIATION ONCOLOGY 09/19/2024 8:56 AM EDT Physician Radiation Oncology RADIATION ONCRUFUS GY ORDERABLES Final Result MOSAIQ RADIATION ONCOLOGY * Rad Onc Msq Treatment Summary (09/16/2024 8:45 AM EDT) [facility] Treatment Site R hilum/med/ sclav MOSAIQ RADIATION ONCOLOGY Course Number 1 MOSAIQ RADIATION ONCOLOGY Prescribed Fractional Dose 200 cGray MOSAIQ RADIATION ONCOLOGY Prescribed Total Dose 6,000 cGray MOSAIQ RADIATION ONCOLOGY Actual Fractions Delivered 17 MOSAIQ RADIATION ONCOLOGY Actual Session Delivered Dose 200 cGray MOSAIQ RADIATION ONCOLOGY Actual Total Dose 3,400 cGray MOSAIQ RADIATION ONCOLOGY Prescribed Technique 2 arc VMAT MOSAIQ RADIATION ONCOLOGY Elapsed Days 22 MOSAIQ RADIATION ONCOLOGY Start Date 08/25/2024 MOSAIQ RADIATION ONCOLOGY Last Date 09/16/2024 MOSAIQ RADIATION ONCOLOGY Prescribed Number of Fractions 30 MOSAIQ RADIATION ONCOLOGY 09/16/2024 8:45 AM EDT Physician Radiation Oncology RADIATION VIOLET GY ORDERABLES Final Result MOSAIQ RADIATION ONCOLOGY * Rad Onc Msq Treatment Summary (09/15/2024 8:48 AM EDT) Pathologist [facility] Treatment Site R hilum/med/ sclav MOSAIQ RADIATION ONCOLOGY Course Number 1 MOSAIQ RADIATION ONCOLOGY Prescribed Fractional Dose 200 cGray MOSAIQ RADIATION ONCOLOGY Prescribed Total Dose 6,000 cGray MOSAIQ RADIATION ONCOLOGY Actual Fractions Delivered 16 MOSAIQ RADIATION ONCOLOGY Actual Session Delivered Dose 200 cGray MOSAIQ RADIATION ONCOLOGY Actual Total Dose 3,200 cGray MOSAIQ RADIATION ONCOLOGY Prescribed Technique 2 arc VMAT MOSAIQ RADIATION ONCOLOGY Elapsed Days 21 MOSAIQ RADIATION ONCOLOGY Start Date 08/25/2024 MOSAIQ RADIATION ONCOLOGY Last Date 09/15/2024 MOSAIQ RADIATION ONCOLOGY Prescribed Number of Fractions 30 MOSAIQ RADIATION ONCOLOGY 09/15/2024 8:48 AM EDT Physician Radiation Oncology RADIATION ONCRUFUS GY ORDERABLES Final Result MOSAIQ RADIATION ONCOLOGY * Rad Onc Msq Treatment Summary (09/14/2024 8:49 AM EDT) Pathologist [facility] Treatment Site R hilum/med/ sclav MOSAIQ RADIATION ONCOLOGY Course Number 1 MOSAIQ RADIATION ONCOLOGY Prescribed Fractional Dose 200 cGray MOSAIQ RADIATION ONCOLOGY Prescribed Total Dose 6,000 cGray MOSAIQ RADIATION ONCOLOGY Actual Fractions Delivered 15 MOSAIQ RADIATION ONCOLOGY Actual Session Delivered Dose 200 cGray MOSAIQ RADIATION ONCOLOGY Actual Total Dose 3,000 cGray MOSAIQ RADIATION ONCOLOGY Prescribed Technique 2 arc VMAT MOSAIQ RADIATION ONCOLOGY Elapsed Days 20 MOSAIQ RADIATION ONCOLOGY Start Date 08/25/2024 MOSAIQ RADIATION ONCOLOGY Last Date 09/14/2024 MOSAIQ RADIATION ONCOLOGY Prescribed Number of Fractions 30 MOSAIQ RADIATION ONCOLOGY 09/14/2024 8:49 AM EDT Physician Radiation Oncology RADIATION ONCRUFUS GY ORDERABLES Final Result Performing Organization Address City/[facility] Co de Phone Number MOSAIQ RADIATION ONCOLOGY * Rad Onc Msq Treatment Summary (09/13/2024 8:51 AM EDT) Pathologist [facility] Treatment Site R hilum/med/ sclav MOSAIQ RADIATION ONCOLOGY Course Number 1 MOSAIQ RADIATION ONCOLOGY Prescribed Fractional Dose 200 cGray MOSAIQ RADIATION ONCOLOGY Prescribed Total Dose 6,000 cGray MOSAIQ RADIATION ONCOLOGY Actual Fractions Delivered 14 MOSAIQ RADIATION ONCOLOGY Actual Session Delivered Dose 200 cGray MOSAIQ RADIATION ONCOLOGY Actual Total Dose 2,800 cGray MOSAIQ RADIATION ONCOLOGY Prescribed Technique 2 arc VMAT MOSAIQ RADIATION ONCOLOGY Elapsed Days 19 MOSAIQ RADIATION ONCOLOGY Start Date 08/25/2024 MOSAIQ RADIATION ONCOLOGY Last Date 09/13/2024 MOSAIQ RADIATION ONCOLOGY Prescribed Number of Fractions 30 MOSAIQ RADIATION ONCOLOGY 09/13/2024 8:51 AM EDT Physician Radiation Oncology RADIATION ONCOLO GY ORDERABLES Final Result MOSAIQ RADIATION ONCOLOGY * Rad Onc Msq Treatment Summary (09/12/2024 8:48 AM EDT) Pathologist [facility] Treatment Site R hilum/med/ sclav MOSAIQ RADIATION ONCOLOGY Course Number 1 MOSAIQ RADIATION ONCOLOGY Prescribed Fractional Dose 200 cGray MOSAIQ RADIATION ONCOLOGY Prescribed Total Dose 6,000 cGray MOSAIQ RADIATION ONCOLOGY Actual Fractions Delivered 13 MOSAIQ RADIATION ONCOLOGY Actual Session Delivered Dose 200 cGray MOSAIQ RADIATION ONCOLOGY Actual Total Dose 2,600 cGray MOSAIQ RADIATION ONCOLOGY Prescribed Technique 2 arc VMAT MOSAIQ RADIATION ONCOLOGY Elapsed Days 18 MOSAIQ RADIATION ONCOLOGY Start Date 08/25/2024 MOSAIQ RADIATION ONCOLOGY Last Date 09/12/2024 MOSAIQ RADIATION ONCOLOGY Prescribed Number of Fractions 30 MOSAIQ RADIATION ONCOLOGY 09/12/2024 8:48 AM EDT Physician Radiation Oncology RADIATION ONCOLO GY ORDERABLES Final Result MOSAIQ RADIATION ONCOLOGY * Rad Onc Msq Treatment Summary (09/09/2024 8:51 AM EDT) [facility] Treatment Site R hilum/med/ sclav MOSAIQ RADIATION ONCOLOGY Course Number 1 MOSAIQ RADIATION ONCOLOGY Prescribed Fractional Dose 200 cGray MOSAIQ RADIATION ONCOLOGY Prescribed Total Dose 6,000 cGray MOSAIQ RADIATION ONCOLOGY Actual Fractions Delivered 12 MOSAIQ RADIATION ONCOLOGY Actual Session Delivered Dose 200 cGray MOSAIQ RADIATION ONCOLOGY Actual Total Dose 2,400 cGray MOSAIQ RADIATION ONCOLOGY Prescribed Technique 2 arc VMAT MOSAIQ RADIATION ONCOLOGY Elapsed Days 15 MOSAIQ RADIATION ONCOLOGY Start Date 08/25/2024 MOSAIQ RADIATION ONCOLOGY Last Date 09/09/2024 MOSAIQ RADIATION ONCOLOGY Prescribed Number of Fractions 30 MOSAIQ RADIATION ONCOLOGY 09/09/2024 8:51 AM EDT Physician Radiation Oncology RADIATION ONCOLO GY ORDERABLES Final Result MOSAIQ RADIATION ONCOLOGY * Rad Onc Msq Treatment Summary (09/08/2024 8:51 AM EDT) Pathologist [facility] Treatment Site R hilum/med/ sclav MOSAIQ RADIATION ONCOLOGY Course Number 1 MOSAIQ RADIATION ONCOLOGY Prescribed Fractional Dose 200 cGray MOSAIQ RADIATION ONCOLOGY Prescribed Total Dose 6,000 cGray MOSAIQ RADIATION ONCOLOGY Actual Fractions Delivered 11 MOSAIQ RADIATION ONCOLOGY Actual Session Delivered Dose 200 cGray MOSAIQ RADIATION ONCOLOGY Actual Total Dose 2,200 cGray MOSAIQ RADIATION ONCOLOGY Prescribed Technique 2 arc VMAT MOSAIQ RADIATION ONCOLOGY Elapsed Days 14 MOSAIQ RADIATION ONCOLOGY Start Date 08/25/2024 MOSAIQ RADIATION ONCOLOGY Last Date 09/08/2024 MOSAIQ RADIATION ONCOLOGY Prescribed Number of Fractions 30 MOSAIQ RADIATION ONCOLOGY 09/08/2024 8:51 AM EDT Physician Radiation Oncology RADIATION ONCOLO GY ORDERABLES Final Result MOSAIQ RADIATION ONCOLOGY * Rad Onc Msq Treatment Summary (09/07/2024 9:01 AM EDT) [facility] Treatment Site R hilum/med/ sclav MOSAIQ RADIATION ONCOLOGY Course Number 1 MOSAIQ RADIATION ONCOLOGY Prescribed Fractional Dose 200 cGray MOSAIQ RADIATION ONCOLOGY Prescribed Total Dose 6,000 cGray MOSAIQ RADIATION ONCOLOGY Actual Fractions Delivered 10 MOSAIQ RADIATION ONCOLOGY Actual Session Delivered Dose 200 cGray MOSAIQ RADIATION ONCOLOGY Actual Total Dose 2,000 cGray MOSAIQ RADIATION ONCOLOGY Prescribed Technique 2 arc VMAT MOSAIQ RADIATION ONCOLOGY Elapsed Days 13 MOSAIQ RADIATION ONCOLOGY Start Date 08/25/2024 MOSAIQ RADIATION ONCOLOGY Last Date 09/07/2024 MOSAIQ RADIATION ONCOLOGY Prescribed Number of Fractions 30 MOSAIQ RADIATION ONCOLOGY 09/07/2024 9:01 AM EDT Physician Radiation Oncology RADIATION ONCOLO GY ORDERABLES Final Result MOSAIQ RADIATION ONCOLOGY * Rad Onc Msq Treatment Summary (09/06/2024 9:01 AM EDT) Pathologist [facility] Treatment Site R hilum/med/ sclav MOSAIQ RADIATION ONCOLOGY Course Number 1 MOSAIQ RADIATION ONCOLOGY Prescribed Fractional Dose 200 cGray MOSAIQ RADIATION ONCOLOGY Prescribed Total Dose 6,000 cGray MOSAIQ RADIATION ONCOLOGY Actual Fractions Delivered 9 MOSAIQ RADIATION ONCOLOGY Actual Session Delivered Dose 200 cGray MOSAIQ RADIATION ONCOLOGY Actual Total Dose 1,800 cGray MOSAIQ RADIATION ONCOLOGY Prescribed Technique 2 arc VMAT MOSAIQ RADIATION ONCOLOGY Elapsed Days 12 MOSAIQ RADIATION ONCOLOGY Start Date 08/25/2024 MOSAIQ RADIATION ONCOLOGY Last Date 09/06/2024 MOSAIQ RADIATION ONCOLOGY Prescribed Number of Fractions 30 MOSAIQ RADIATION ONCOLOGY 09/06/2024 9:01 AM EDT Physician Radiation Oncology RADIATION ONCRUFUS GY ORDERABLES Final Result MOSAIQ RADIATION ONCOLOGY * Rad Onc Msq Treatment Summary (09/05/2024 9:06 AM EDT) [facility] Treatment Site R hilum/med/ sclav MOSAIQ RADIATION ONCOLOGY Course Number 1 MOSAIQ RADIATION ONCOLOGY Prescribed Fractional Dose 200 cGray MOSAIQ RADIATION ONCOLOGY Prescribed Total Dose 6,000 cGray MOSAIQ RADIATION ONCOLOGY Actual Fractions Delivered 8 MOSAIQ RADIATION ONCOLOGY Actual Session Delivered Dose 200 cGray MOSAIQ RADIATION ONCOLOGY Actual Total Dose 1,600 cGray MOSAIQ RADIATION ONCOLOGY Prescribed Technique 2 arc VMAT MOSAIQ RADIATION ONCOLOGY Elapsed Days 11 MOSAIQ RADIATION ONCOLOGY Start Date 08/25/2024 MOSAIQ RADIATION ONCOLOGY Last Date 09/05/2024 MOSAIQ RADIATION ONCOLOGY Prescribed Number of Fractions 30 MOSAIQ RADIATION ONCOLOGY 09/05/2024 9:06 AM EDT Physician Radiation Oncology RADIATION ONCRUFUS GY ORDERABLES Final Result MOSAIQ RADIATION ONCOLOGY * Rad Onc Msq Treatment Summary (09/02/2024 8:45 AM EST) Pathologist [facility] Treatment Site R hilum/med/ sclav MOSAIQ RADIATION ONCOLOGY Course Number 1 MOSAIQ RADIATION ONCOLOGY Prescribed Fractional Dose 200 cGray MOSAIQ RADIATION ONCOLOGY Prescribed Total Dose 6,000 cGray MOSAIQ RADIATION ONCOLOGY Actual Fractions Delivered 7 MOSAIQ RADIATION ONCOLOGY Actual Session Delivered Dose 200 cGray MOSAIQ RADIATION ONCOLOGY Actual Total Dose 1,400 cGray MOSAIQ RADIATION ONCOLOGY Prescribed Technique 2 arc VMAT MOSAIQ RADIATION ONCOLOGY Elapsed Days 8 MOSAIQ RADIATION ONCOLOGY Start Date 08/25/2024 MOSAIQ RADIATION ONCOLOGY Last Date 09/02/2024 MOSAIQ RADIATION ONCOLOGY Prescribed Number of Fractions 30 MOSAIQ RADIATION ONCOLOGY 09/02/2024 8:45 AM EST Physician Radiation Oncology RADIATION VIOLET GY ORDERABLES Final Result MOSAIQ RADIATION ONCOLOGY * Rad Onc Msq Treatment Summary (09/01/2024 8:52 AM EST) Pathologist [facility] Treatment Site R hilum/med/ sclav MOSAIQ RADIATION ONCOLOGY Course Number 1 MOSAIQ RADIATION ONCOLOGY Prescribed Fractional Dose 200 cGray MOSAIQ RADIATION ONCOLOGY Prescribed Total Dose 6,000 cGray MOSAIQ RADIATION ONCOLOGY Actual Fractions Delivered 6 MOSAIQ RADIATION ONCOLOGY Actual Session Delivered Dose 200 cGray MOSAIQ RADIATION ONCOLOGY Actual Total Dose 1,200 cGray MOSAIQ RADIATION ONCOLOGY Prescribed Technique 2 arc VMAT MOSAIQ RADIATION ONCOLOGY Elapsed Days 7 MOSAIQ RADIATION ONCOLOGY Start Date 08/25/2024 MOSAIQ RADIATION ONCOLOGY Last Date 09/01/2024 MOSAIQ RADIATION ONCOLOGY Prescribed Number of Fractions 30 MOSAIQ RADIATION ONCOLOGY 09/01/2024 8:52 AM EST Physician Radiation Oncology RADIATION ONCRUUFS GY ORDERABLES Final Result MOSAIQ RADIATION ONCOLOGY * Rad Onc Msq Treatment Summary (08/31/2024 8:53 AM EST) Pathologist [facility] Treatment Site R hilum/med/ sclav MOSAIQ RADIATION ONCOLOGY Course Number 1 MOSAIQ RADIATION ONCOLOGY Prescribed Fractional Dose 200 cGray MOSAIQ RADIATION ONCOLOGY Prescribed Total Dose 6,000 cGray MOSAIQ RADIATION ONCOLOGY Actual Fractions Delivered 5 MOSAIQ RADIATION ONCOLOGY Actual Session Delivered Dose 200 cGray MOSAIQ RADIATION ONCOLOGY Actual Total Dose 1,000 cGray MOSAIQ RADIATION ONCOLOGY Prescribed Technique 2 arc VMAT MOSAIQ RADIATION ONCOLOGY Elapsed Days 6 MOSAIQ RADIATION ONCOLOGY Start Date 08/25/2024 MOSAIQ RADIATION ONCOLOGY Last Date 08/31/2024 MOSAIQ RADIATION ONCOLOGY Prescribed Number of Fractions 30 MOSAIQ RADIATION ONCOLOGY 08/31/2024 8:53 AM EST Physician Radiation Oncology RADIATION ONCOLO GY ORDERABLES Final Result MOSAIQ RADIATION ONCOLOGY * Rad Onc Msq Treatment Summary (08/30/2024 7:55 AM EST) Pathologist [facility] Treatment Site R hilum/med/ sclav MOSAIQ RADIATION ONCOLOGY Course Number 1 MOSAIQ RADIATION ONCOLOGY Prescribed Fractional Dose 200 cGray MOSAIQ RADIATION ONCOLOGY Prescribed Total Dose 6,000 cGray MOSAIQ RADIATION ONCOLOGY Actual Fractions Delivered 4 MOSAIQ RADIATION ONCOLOGY Actual Session Delivered Dose 200 cGray MOSAIQ RADIATION ONCOLOGY Actual Total Dose 800 cGray MOSAIQ RADIATION ONCOLOGY Prescribed Technique 2 arc VMAT MOSAIQ RADIATION ONCOLOGY Elapsed Days 5 MOSAIQ RADIATION ONCOLOGY Start Date 08/25/2024 MOSAIQ RADIATION ONCOLOGY Last Date 08/30/2024 MOSAIQ RADIATION ONCOLOGY Prescribed Number of Fractions 30 MOSAIQ RADIATION ONCOLOGY 08/30/2024 7:55 AM EST Physician Radiation Oncology RADIATION ONCOLO GY ORDERABLES Final Result MOSAIQ RADIATION ONCOLOGY * Rad Onc Msq Treatment Summary (08/29/2024 8:01 AM EST) Pathologist [facility] Treatment Site R hilum/med/ sclav MOSAIQ RADIATION ONCOLOGY Course Number 1 MOSAIQ RADIATION ONCOLOGY Prescribed Fractional Dose 200 cGray MOSAIQ RADIATION ONCOLOGY Prescribed Total Dose 6,000 cGray MOSAIQ RADIATION ONCOLOGY Actual Fractions Delivered 3 MOSAIQ RADIATION ONCOLOGY Actual Session Delivered Dose 200 cGray MOSAIQ RADIATION ONCOLOGY Actual Total Dose 600 cGray MOSAIQ RADIATION ONCOLOGY Prescribed Technique 2 arc VMAT MOSAIQ RADIATION ONCOLOGY Elapsed Days 4 MOSAIQ RADIATION ONCOLOGY Start Date 08/25/2024 MOSAIQ RADIATION ONCOLOGY Last Date 08/29/2024 MOSAIQ RADIATION ONCOLOGY Prescribed Number of Fractions 30 MOSAIQ RADIATION ONCOLOGY 08/29/2024 8:01 AM EST Physician Radiation Oncology RADIATION ONCOLO GY ORDERABLES Final Result MOSAIQ RADIATION ONCOLOGY * Rad Onc Msq Treatment Summary (08/26/2024 8:45 AM EST) Pathologist [facility] Treatment Site R hilum/med/ sclav MOSAIQ RADIATION ONCOLOGY Course Number 1 MOSAIQ RADIATION ONCOLOGY Prescribed Fractional Dose 200 cGray MOSAIQ RADIATION ONCOLOGY Prescribed Total Dose 6,000 cGray MOSAIQ RADIATION ONCOLOGY Actual Fractions Delivered 2 MOSAIQ RADIATION ONCOLOGY Actual Session Delivered Dose 200 cGray MOSAIQ RADIATION ONCOLOGY Actual Total Dose 400 cGray MOSAIQ RADIATION ONCOLOGY Prescribed Technique 2 arc VMAT MOSAIQ RADIATION ONCOLOGY Elapsed Days 1 MOSAIQ RADIATION ONCOLOGY Start Date 08/25/2024 MOSAIQ RADIATION ONCOLOGY Last Date 08/26/2024 MOSAIQ RADIATION ONCOLOGY Prescribed Number of Fractions 30 MOSAIQ RADIATION ONCOLOGY 08/26/2024 8:45 AM EST Physician Radiation Oncology RADIATION ONCRUFUS GY ORDERABLES Final Result Performing Organization Address [facility] Co de Phone Number MOSAIQ RADIATION ONCOLOGY * Rad Onc Msq Treatment Summary (08/25/2024 12:05 PM EST) Pathologist [facility] Treatment Site R hilum/med/ sclav MOSAIQ RADIATION ONCOLOGY Course Number 1 MOSAIQ RADIATION ONCOLOGY Prescribed Fractional Dose 200 cGray MOSAIQ RADIATION ONCOLOGY Prescribed Total Dose 6,000 cGray MOSAIQ RADIATION ONCOLOGY Actual Fractions Delivered 1 MOSAIQ RADIATION ONCOLOGY Actual Session Delivered Dose 200 cGray MOSAIQ RADIATION ONCOLOGY Actual Total Dose 200 cGray MOSAIQ RADIATION ONCOLOGY Prescribed Technique 2 arc VMAT MOSAIQ RADIATION ONCOLOGY Elapsed Days 0 MOSAIQ RADIATION ONCOLOGY Start Date 08/25/2024 MOSAIQ RADIATION ONCOLOGY Last Date 08/25/2024 MOSAIQ RADIATION ONCOLOGY Prescribed Number of Fractions 30 MOSAIQ RADIATION ONCOLOGY 08/25/2024 12:0 5 PM EST Physician Radiation Oncology RADIATION ONCOLO GY ORDERABLES Final Result MOSAIQ RADIATION ONCOLOGY from Last 3 Months Insurance MEDICARE [facility] Advance Directives Documents on File Type Date Recorded Patient Exhibit Cleaner Expl anation Health Care Decision (hx) 05/08/2022 AD ZIMMER DIRECTIVE Health Care Decision (hx) 05/08/2022 AD ZIMMER DIRECTIVE Health Care Decision (hx) 05/08/2022 AD ZIMMER DIRECTIVE Health Care Decision (hx) 05/08/2022 AD ZIMMER DIRECTIVE Health Care Decision (hx) 05/08/2022 AD ZIMMER DIRECTIVE Health Care Decision (hx) 05/08/2022 AD ZIMMER DIRECTIVE Health Care Decision (hx) 05/08/2022 AD ZIMMER DIRECTIVE Health Care Decision (hx) 05/08/2022 AD ZIMMER DIRECTIVE Health Care Decision (hx) 05/08/2022 AD ZIMMER DIRECTIVE Health Care Decision (hx) 05/08/2022 AD ZIMMER DIRECTIVE Health Care Decision (hx) 05/08/2022 AD ZIMMER DIRECTIVE Health Care Decision (hx) 05/08/2022 AD ZIMMER DIRECTIVE Health Care Decision (hx) 05/08/2022 AD ZIMMER DIRECTIVE Health Care Decision (hx) 05/08/2022 AD ZIMMER DIRECTIVE Health Care Decision (hx) 05/08/2022 AD ZIMMER DIRECTIVE Health Care Decision (hx) 05/08/2022 AD ZIMMER DIRECTIVE Health Care Decision (hx) 05/08/2022 AD ZIMMER DIRECTIVE Health Care Decision (hx) 05/08/2022 AD ZIMMER DIRECTIVE Health Care Decision (hx) 05/08/2022 AD ZIMMER DIRECTIVE Health Care Decision (hx) 05/08/2022 AD ZIMMER DIRECTIVE Health Care Decision (hx) 05/08/2022 AD ZIMMER DIRECTIVE Health Care Decision (hx) 05/08/2022 AD ZIMMER DIRECTIVE Health Care Decision (hx) 05/08/2022 AD ZIMMER DIRECTIVE Health Care Decision (hx) 05/08/2022 AD ZIMMER DIRECTIVE Health Care Decision (hx) 05/08/2022 AD ZIMMER DIRECTIVE Health Care Decision (hx) 05/08/2022 AD ZIMMER DIRECTIVE Health Care Decision (hx) 05/08/2022 AD ZIMMER DIRECTIVE Health Care Decision (hx) 05/08/2022 AD ZIMMER DIRECTIVE * Full Code - Default (Latest Code Status on File) Date Activated Date Inactivated Comments 07/14/2024 7:27 AM 07/14/2024 2:19 PM This is orde r is used when code status has not been discussed with the patient, or code status is otherwise unknown/unconfirmed To update the patient's code status, place a code status order. Do not modify or discontinue any currently active code status orders. Care Teams Literary Writer Relationship Specialty Start Date End Date Dario Reed MD [address] [place] [id number] [address] [place] PCP - General Internal Medicine 04/02/22
--- OUTSIDE RECORDS SUMMARY | 2024-11-15 09:36 | XMS_ITS | Encounter Summary ---
Author Organization [facility] Address [address] [place] [id number] Care Team Providers Care Lifter/Driver Name Role Phone Dario Reed MD Primary Care Provider +1- [phone] Encounter Details Date Type Department Care Team Description 06/20/2022 Social Work [facility] Oncology Services [address] [place] [address] Saw Gagnon, [facility] [place] Tobacco Use Types Packs/Day Years [...] suspected to have Coronavirus/COVID-19? No / Unsure 06/11/2022 12:57 PM EST documented as of this encounter Plan of Treatment Not on file documented as of this encounter Visit Diagnoses Not on filedocumented in this encounter Care Teams Lifter/Driver Relationship Specialty Start Date End Date Dario Reed MD [address] [place] [address] [place] [address] PCP - General Internal Medicine 06/04/22 documented as of this encounter
--- OUTSIDE RECORDS SUMMARY | 2024-11-15 09:36 | XMS_ITS ---
Author Organization [facility] Address [address] [place] [phone] Phone Care Team Providers Care Bus And Trolley Inspecting Dispatcher Name Role Phone Dario Reed MD Primary Care Provider +1- [phone] Active Problems Problem Noted Date Diagnosed Date Hypothyroidism (acquired) 10/31/2024 Chronic renal impairment, st age 5 (moderate) ([facility] V24, [facility] V28) 07/14/2024 Gastroesophageal reflux disease without esophagi tis 07/14/2024 Chronic obstructive pulmonar y disease ([facility] V24, [facility] V28) 07/14/2024 HTN (hypertension) 07/14/2024 Mediastinal lymphadenopathy [...] Non-small cell cancer of rig ht lung ([facility] V24, [facility] V28) 06/11/2022 Cancer Staging:Clinical:Stage Unknown(rcTX, cN3, cM0) [...] to 2 weeks. All questions were answered. Current Oncology Plans Durvalumab ( Every 28 Days )* Plan Start Date:10/31/2024 Plan Provider:Vitaliy De MD Linked Problems Non-small cell cancer of rig ht lung ([facility] V24, [facility] V28)Hypothyroidism (acquired) Treatment Medications Current Day (Day 1 , Cycle 2 - Planned for 11/29/2024) Next Day (Day 1, Cycle 3 - Planned for 12/27/2024) durvalumab (IMFINZI)durvalumab (IMFINZI) chemo IVPB 250 mL durvalumab (IMFINZI) 1,500 mg in sodium chloride 280 mL chemo IVPB durvalumab (IMFINZI) 1,500 mg in sodium chloride 280 mL chemo IVPB HYDRATION AND ELECTROLYTES* Plan Start Date:09/09/2024 Plan Provider:Vitaliy De MD Linked Problems Non-small cell cancer of rig ht lung (CMS/HCC V24, CMS/HCC V28) Treatment Medications No medications scheduled. Past Plans Oncology Treatment Plan Name Start Date Discontinue Date Treatment Medications Discontinue Reason Plan Provider Cycles PACLitaxel / CARBOplatin with Concurrent Radiation Course 5 10/31/2024 CARBOplatin (PARAPLATIN)CA RBOplatin (PARAPLATIN) chemo 100 mL IVPB (by AUC)CARBOplati n (PARAPLATIN) chemo 250 mL IVPB (by AUC)PACLitaxel (TAXOL)PACLita xel (TAXOL) chemo IVPB NS 250 mL (1 hours) - Therapy Complete Vitaliy De MD 1 of 1 cycle started Radiation Treatments * Treatment Site Started On Last Treated On Elapsed Days Fractions Complete Last Fraction Dose Given/Prescribed Total Dose Given/Prescribed Technique R hilum/med/ sclav 5 5 43 30 of 30 200 cGy / 200 cGy 6,000 cGy / 6, 000 cGy 2 arc VMAT Resolved Problems Problem Noted Date Diagnosed Date Resolved Date Malignant neoplasm of unspec ified part of right bronchus or lung (CMS/HCC V24, CMS/HCC V28) 04/10/2023 08/03/2024
[2024-11-15 09:53] LABS: Basophils Percent Auto 0.9 % (0-2); Eosinophils Absolute Auto 0.2 X10*3/uL (0.0-0.4); Eosinophils Percent Auto 4.7 % (0-4); Hemoglobin 11.4 g/dl (14.0-18.0); Imm Gran Abs Auto 0.02 X10*3/uL (0.00-0.03); Imm Gran Pct Auto 0.4 % (0.0-0.4); Lymphocytes Absolute Auto 0.5 X10*3/uL (1.2-4.9); Lymphocytes Percent Auto 10.4 % (20-40); Mean Corpuscular HGB Conc 32.6 g/dl (31.0-36.0); Mean Corpuscular Hemoglobin 30.9 pg (27.0-33.0); Mean Corpuscular Volume 94.9 fL (80.0-98.0); Mean Platelet Volume 9.6 fL (9.4-12.4); Monocytes Absolute Auto 0.3 X10*3/uL (0.1-1.2); Neutrophils Absolute Auto 3.5 x10*3/uL (2.0-8.3); Neutrophils Percent Auto 77.6 % (45-73); Platelet Count 211 X10*3/uL (160-400); Red Blood Count 3.69 X10*6/uL (4.60-5.80); White Blood Count 4.5 X10*3/uL (4.8-10.8)
[2024-11-15 10:14] LABS: Appearance Urine Clear; Color Urine Yellow; Glucose Urine UA Negative (Negative); Leukocyte Esterase Urine Negative (Negative); Nitrite Urine Negative (Negative); PH 6.5 (5.0-9.0); Specific Gravity - Urine 1.025 (1.005-1.025); Urine Blood Negative (Negative); Urine Ketones Trace mg/dL (Negative); Urine Protein Trace mg/dL (Neg-Trace)
[2024-11-15 10:29] LABS: Estimated Average Glucose 100 mg/dL; Hemoglobin A1C 96.8599 umol/L; Hemoglobin A1c % 5.1 % (<6.0); Total Hemoglobin (HGBA1C) 3041.9924 umol/L
[2024-11-15 10:53] LABS: Alanine Aminotransferase 10 U/L (0-40); Albumin Level 4.1 g/dL (3.5-5.0); Alkaline Phosphatase 91 U/L (39-117); Anion Gap 12 (12-20); Aspartate Amino Transferase 20 U/L (5-37); Bilirubin Total 0.7 mg/dL (0.0-1.0); Blood Urea Nitrogen 20 mg/dL (9-16); Calcium 9.5 mg/dL (8.4-10.2); Carbon Dioxide 26 mmol/L (22-29); Chloride 108 mmol/L (96-108); Cholesterol 159 mg/dL (<200); Estimated Glomerular Filt Rate 50; Glucose Fasting 114 mg/dL (60-99); HDL Cholesterol 48 mg/dL (>40); Potassium 4.7 mmol/L (3.3-5.1); Sodium 141 mmol/L (135-145); TSH reflex Free T4 0.49 uIU/mL (0.32-4.0); Total Protein 6.7 g/dL (6.5-8.0); Vitamin D 25-OH Total 66.9 ng/mL (>30)
[2024-11-15 11:10] LABS: Folate > 20.0 ng/mL (> or = 4.0); LDL Cholesterol Calculated 84 mg/dL (<100); Triglycerides 139 mg/dL (<150); Vitamin B12 1226 pg/mL (200-900)
== END 2024-11-15 09:01 | disposition home or self-care (01) ==
LOC: HO.LAB 09:00
PROVIDERS: PCP Internal Medicine; Visit Provider Internal Medicine
DX: R30.0 Dysuria (principal); E53.8 Deficiency of other specified B group vitamins; E78.00 Pure hypercholesterolemia, unspecified; E55.9 Vitamin D deficiency, unspecified; D64.9 Anemia, unspecified; R73.01 Impaired fasting glucose
CPT/HCPCS: 36415; 80053; 80061; 81003; 82306; 82607; 82746; 83036; 84443; 85025

== ENCOUNTER 2024-11-18 08:44 | Outpatient (AMB) | payer MEDICARE, OTHER, SELFPAY ==
--- OUTSIDE RECORDS SUMMARY | 2024-11-18 09:00 | XMS_ITS ---
Author Organization [facility] Address [address] [place] [address] Care Team Providers Care Recovery Manager Name Role Phone Dario Reed MD Primary Care Provider +1- [phone] Active Problems Problem Noted Date Diagnosed Date [...] treatments are documented for this patient in [facility]. Treatments may have been administered in another system.
[2024-11-18 09:13] VITALS: BP 132/84; PULSE 97; TEMP 36.3; O2SAT 97; BMI 25.4
--- NOTE | 2024-11-18 09:13 | MHC.PC.OV ---
Vital Signs 11/18/24 09:13 Height 5 ft 7 in Weight 162 lb 6 oz BMI 25.4 BP 132/84 Blood Pressure Location Lt brachial Position Sitting Pulse 97 Pulse Source Pulse Oximeter Temp 97.3 F Temp Source Temporal Artery Scan Pulse Oximetry (%) 97 Oxygen Delivery Method Room Air Intake Visit Reasons: HTN, hyperlipidemia, IFG, GERD, OA, neuropathy Accompanied by: Spouse Allergies No Known Allergies [No Known Allergies*] Allergy (Verified 11/18/24 09:41) Medication List - Last Reconciled 11/18/24 by Dario Reed MD albuterol sulfate 90 mcg/actuation 2 puffs inhalation Q4-6H PRN 90 days atorvastatin 10 mg PO BEDTIME 90 days bisacodyl (Dulcolax (bisacodyl)) 10 mg (2 x 5 mg) PO ONCE 5 days cholecalciferol (vitamin D3) 50 mcg PO DAILY 90 days cyanocobalamin (vitamin B-12) ER 1,000 mcg PO DAILY 90 days folic acid 1 mg PO DAILY losartan 50 mg PO DAILY magnesium 400 mg PO BID omeprazole 20 mg PO BID 90 days polyethylene glycol 3350 (Miralax) 17 grams PO DAILY 1 day prochlorperazine maleate 10 mg PO Q6H Tobacco use date assessed: 11/18/24 Fall risk assessment: No Falls in past year Last assessed Fall Risk: 11/18/24 Dental Screening Dental Screen Date: 11/18/24 Did you have a dental visit in the last 12 months?: No Did you have a dental problem in the last 6 months where you did not have access to dental care?: No Was dental information given to patient?: Patient declined HPI HTN, hyperlipidemia, IFG, GERD, OA, neuropathy HPI Details Patient comes in today for his follow up visit States that he currently feels okay and just completed his radiation therapy for his recurrent lung cancer last month on 10/07/2024 He also started chemotherapy with weekly Carboplatin/Taxol on 08/26/2024 and has received 5 doses of chemotherapy infusions already at this time and appears to have tolerated his chemoradiation reasonably well He will now be maintained on immunotherapy with Durvalumab x 1 year He denies any headaches or dizziness Denies any chest pains, no increased SOB but he reports feeling the need to use his Albuterol inhaler often lately States that he's had to use it a few times a day more recently because of some MONTES No nausea/vomiting, no abdominal pain No change in bowel habits noted He had his follow up labs done a few days ago - to discuss his results [facility] Medical History Recurrent non-small cell lung cancer (NSCLC) Chronic kidney disease, stage III (moderate) Primary cancer of right lower lobe of lung (~04/2022) Personal history of nicotine dependence Tubular adenoma of colon (~2011) Cough Overweight (BMI 25.0-29.9) Folate deficiency Vitamin B12 deficiency Neuropathy Chronic gastritis without bleeding Impaired fasting glucose Chronic obstructive pulmonary disease (COPD) Pure hypercholesterolemia Benign essential hypertension Surgical History History of lobectomy of lung History of bronchoscopy History of colonoscopy History of esophagogastroduodenoscopy (EGD) History of laparoscopic cholecystectomy Family History Father Hypertension Mother Lung cancer Maternal Aunt Breast cancer Family/Other Hypertension Heart disease Social History Housing: House Alcohol intake: never Patient Tobacco Use Status: Former Tobacco user e-Cigarette/Vaping Use: Never Used Second Hand Smoke Exposure: Yes service: No Current occupational status: unemployed Cognitive needs: No Hearing needs: No Vision needs: Yes Questionnaire PHQ-9 Over the last 2 weeks, how often have you been bothered by any of the following problems? 1. Little interest or pleasure in doing things: not at all 2. Feeling down, depressed, or hopeless: not at all 3. Trouble falling or staying asleep, or sleeping too much: not at all 4. Feeling tired or having little energy: not at all 5. Poor appetite or overeating: not at all 6. Feeling bad about yourself - or that you are a failure or have let yourself or your family down: not at all 7. Trouble concentrating on things, such as reading the newspaper or watching television: not at all 8. Moving or speaking so slowly that other people could have noticed. Or the opposite - being so fidgety or restless that you have been moving around a lot more than usual: not at all 9. Thoughts that you would be better off or of hurting yourself in some way: not at all Total score: 0 Depression Screening Interpretation: Negative Depression Screening Done: Yes 26876 - PHQ-9 Billing: Yes Source: Developed by Drs. Dayron Noriega, Batool Echeverria, Tom Will and colleagues, with an educational blayne from [employer]. Thrive Questionnaire Date Thrive assessed: 07/18/24 I am a: Patient What is your living situation today?: I have a steady place to live Within the past 12 months, did the food you bought not last and you didn't have the money to get more?: Never true Within the past 12 months, did you worry whether your food would run out before you got money to buy more?: Never true Do you have trouble paying for medicines?: No Do you have trouble getting transportation to medical appointments?: No Do you have trouble paying your heating and electricity bill?: No Do you have trouble taking care of your child, family member or friend?: No Do you have trouble with day-to-day activities such as bathing, preparing meals, shopping, managing finances, etc.?: No Are you currently unemployed and looking for a job?: No Are you interested in more education?: No Please select the resources that you would like help with: None Currently or been in a relationship where the following occur: No concerns reported THRIVE Score: 0 AUDIT C Alcohol Use Questionnaire (AUDIT-C) 1. How often do you have a drink containing alcohol?: Never 3. How often do you have six or more drinks on one occasion?: Never Total Score: 0 Score Reviewed/Action Taken: Yes ZACH-7 AMB Questionnaire ZACH-7 Date ZACH - 7 assessed: 07/18/24 Feeling nervous, anxious, or on edge: 0 = Not at all Not being able to stop or control worryin = Not at all Worrying too much about different things: 0 = Not at all Trouble relaxin = Not at all Being so restless that it is hard to sit still: 0 = Not at all Becoming easily annoyed or irritable: 0 = Not at all Feeling afraid as if something awful might happen: 0 = Not at all Total ZACH-7 score (0-4 normal; 5-9 mild; 10-14 moderate; 15-21 severe): 0 Source: Developed by Drs. Dayron Noriega, Batool Echeverria, Tom Will and colleagues, with an educational blayne from [employer]. Review of Systems Const Denies chills, Denies fatigue, Denies fever(s) and Denies headache(s) ENT Denies dysphagia, Denies dizziness, Denies otalgia, Denies headache(s), Denies neck pain, Denies odynophagia and Denies sore throat Card Denies chest pain, Denies palpitations and Reports dyspnea on exertion (reports having to use his Albuterol inhaler more often lately) Resp Denies chest congestion, Denies cough and Reports dyspnea on exertion (reports having to use his Albuterol inhaler more often lately) GI Denies abdominal pain, Denies constipation, Denies dysphagia, Denies heartburn, Denies diarrhea, Denies nausea, Denies odynophagia and Denies vomiting Denies difficulty urinating, Denies dysuria, Denies nocturia and Denies urinary frequency Musc Denies back pain, Denies arthralgias and Denies neck pain Skin/Breast Denies rash Neuro Denies dizziness and Denies headache(s) Endo Denies fatigue and Denies palpitations Physical exam (Primary Care) Vital Signs: Last Vital Signs Temp 97.3 F 11/18/24 09:13 Pulse 97 11/18/24 09:13 BP 132/84 11/18/24 09:13 Pulse Ox 97 11/18/24 09:13 Oxygen Delivery Method Room Air 11/18/24 09:13 BMI result Body Mass Index 25.4 Tobacco/Smoking Status: Tobacco use Status Tobacco use date assessed 11/18/24 11/18/24 09:19 Patient Tobacco Use Status Former Tobacco user 11/18/24 09:19 e-Cigarette/Vaping Use Never Used 11/18/24 09:19 PHQ-9: PHQ-9 Score PHQ-9: Total score 0 11/18/24 09:49 Depression Screening Interpretation: Negative Thrive Assessment: Date of Thrive Assessment Date Thrive assessed 07/18/24 11/18/24 09:19 Currently or been in a relationship where the following occur: No concerns reported Const General: no acute distress and alert HENMT Ears: TM's normal bilaterally and EAC's normal Throat: Yes posterior oropharynx normal and Yes tonsils normal (no TP congestion) Neck Neck: Yes supple and No lymphadenopathy Thyroid: Thyroid normal Resp Auscultation: clear to auscultation bilaterally, no rales and no wheezes Cardio Rate: regular rate Rhythm: regular rhythm Heart sounds: no murmurs GI Palpation (GI): Soft to palpation and nontender Auscultation: normal bowel sounds General: Yes no CVA tenderness Back/Spine/Pelvis Back: no CVA tenderness Thoracic/Lumbar Spine: No lumbar spinal tenderness Skin Rashes: no rashes Extrem General: Yes no clubbing, cyanosis or edema Results Reviewed Results Reviewed: Laboratory Tests 11/05/23 11/15/24 11/15/24 11:13 09:12 09:18 WBC 4.5 L Hgb 11.4 L Hct 35.0 L Plt Count 211 Sodium 141 Potassium 4.7 Creatinine 1.41 H Estimated GFR 50 Fasting Glucose 114 H Hgb A1c (Clinic) 5.7 Hemoglobin A1c % 5.1 Calcium 9.5 AST 20 ALT 10 Triglycerides 139 Cholesterol 159 LDL Cholesterol, Calc 84 HDL Cholesterol 48 Vitamin B12 1226 H 25-OH Vitamin D Total 66.9 TSH 0.49 Ur Specific [place] 1.025 Urine Protein Trace Urine Glucose (UA) Negative Urine Blood Negative Urine Nitrite Negative Ur Leukocyte Esterase Negative Coding Level of Care Code Est Pt Level 4 (64370) Diagnoses Recurrent non-small cell lung cancer (NSCLC) C34.90 Stage 3a chronic kidney disease N18.31 Chronic kidney disease stage 3 subtype: stage 3a (GFR 45-59) Pure hypercholesterolemia E78.00 Benign essential hypertension I10 Anemia due to antineoplastic chemotherapy D64.81; T45.1X5A Anemia type: other cause Other causes of anemia: antineoplastic chemotherapy Chronic obstructive pulmonary disease, unspecified COPD type J44.9 COPD type: unspecified COPD Impaired fasting glucose R73.01 Chronic gastritis without bleeding, unspecified gastritis type K29.50 Gastritis type: unspecified gastritis Neuropathy G62.9 Vitamin B12 deficiency E53.8 Folate deficiency E53.8 Vitamin D deficiency E55.9 Overweight (BMI 25.0-29.9) E66.3 Additional Codes PHQ-9 - 66491 - PHQ-9 Billing: Yes ([id number]) Assessment & Plan Assessment & Plan (1) Recurrent non-small cell lung cancer (NSCLC): Code(s): C34.90 - Malignant neoplasm of unspecified part of unspecified bronchus or lung Category: Medical Plan: Patient was diagnosed with recurrence of lung cancer (non-small cell) earlier this year and he was started on chemoradiation therapy He started chemotherapy with weekly Carboplatin/Taxol on 08/26/2024 and has received 5 doses of chemotherapy infusion already at this time He started radiation therapy on 08/25/2024 and recent completed his radiation Tx last month on 10/07/2024 Patient appears to have tolerated his chemoradiation reasonably well and he will now be maintained on immunotherapy with Durvalumab x [address] following completion of his chemoradiation showed stable to decreased mediastinal lymphadenopathy Follow up with oncology and thoracic surgery as scheduled (2) Chronic kidney disease, stage III (moderate): Code(s): N18.30 - Chronic kidney disease, stage 3 unspecified Category: Medical Qualifiers: Chronic kidney disease stage 3 subtype: stage 3a (GFR 45-59) Qualified Code(s): N18.31 - Chronic kidney disease, stage 3a Plan: Patient's renal function currently appears stable on his recent labs - this seems to have improved slightly from previous He is again reminded to avoid taking any NSAIDs; may take Tylenol PRN instead for pain but no more than 4 tablets a day Follow up with nephrology (Dr. Dominguez) as scheduled (3) Pure hypercholesterolemia: Code(s): E78.00 - Pure hypercholesterolemia, unspecified Category: Medical Plan: Results of his labs done a few days ago reviewed and discussed with patient - his cholesterol levels have improved from previous Reinforced low cholesterol diet Continue Atorvastatin 10 mg QD Will recheck his labs and fasting lipids in 4 months for follow up (4) Benign essential hypertension: Code(s): I10 - Essential (primary) hypertension Category: Medical Plan: Reinforced low sodium diet - goal is systolic BP of at least 130 mm or less Continue Losartan 50 mg QD - dose was reduced by nephrology a few months ago He used to take Amlodipine 5 mg QD as well but this was HELD due to low BP and recurrent dizziness/orthostasis and eventually discontinued Patient is again reminded to continue monitoring his BP regularly (5) Anemia: Code(s): D64.9 - Anemia, unspecified Category: Medical Qualifiers: Anemia type: other cause Other causes of anemia: antineoplastic chemotherapy Qualified Code(s): D64.81 - Anemia due to antineoplastic chemotherapy; T45.1X5A - Adverse effect of antineoplastic and immunosuppressive drugs, initial encounter Plan: Patient is again slightly anemic on his recent labs done last week - H/H at 11.4/35.0 He is advised that this may be likely be due to his CKD - anemia of chronic disease but could also be related to his recent chemotherapy Will continue to monitor his CBC regularly (6) Chronic obstructive pulmonary disease (COPD): Code(s): J44.9 - Chronic obstructive pulmonary disease, unspecified Category: Medical Qualifiers: COPD type: unspecified COPD Qualified Code(s): J44.9 - Chronic obstructive pulmonary disease, unspecified Plan: Continue Albuterol HFA 2 puffs 4 times a day PRN He was previously doing well on Incruse Ellipta but had to be switched back to Spiriva due to formulary restrictions As he reportedly has had to use his Albuterol (rescue) inhaler more often than usual lately and more recently a few times a day, will try starting him on a controller inhaler with Trelegy 100-62.5-25 mcg 1 inhalation QD (7) Impaired fasting glucose: Code(s): R73.01 - Impaired fasting glucose Category: Medical Plan: His FBS was still high at 114 mg/dl but his HgbA1c was normal at 5.1% on his labs done a few days ago Reinforced low calorie/low carb diet and exercise as tolerated Will continue to monitor his blood sugar regularly (8) Chronic gastritis without bleeding: Code(s): K29.50 - Unspecified chronic gastritis without bleeding Category: Medical Qualifiers: Gastritis type: unspecified gastritis Qualified Code(s): K29.50 - Unspecified chronic gastritis without bleeding Plan: S/P EGD in September 2018 Continue Omeprazole 20 mg BID Follow up with GI (Dr. 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 EMG in the right L4-S1 innervated muscles were normal (10) Vitamin B12 deficiency: Code(s): E53.8 - Deficiency of other specified B group vitamins Category: Medical Plan: His Vitamin B12 level was previously high at 1886 pg/ml and is still slightly higher than normal at 1226 pg/ml on his recent labs Continue Vitamin B12 tablet but advised to try taking this at 1 tablet every other day Will recheck his Vitamin B12 level in 4 months for follow up (11) Folate deficiency: Code(s): E53.8 - Deficiency of other specified B group vitamins Category: Medical Plan: Continue Folic Acid 1 mg QD (12) Vitamin D deficiency: Code(s): E55.9 - Vitamin D deficiency, unspecified Category: Medical Plan: Continue Vitamin D3 2000 units QD (13) Overweight (BMI 25.0-29.9): Code(s): E66.3 - Overweight Category: Medical Plan: Reinforced diet/exercise as tolerated/lose weight - he has been able to lose over 10 pounds since his last visit Plan Follow up in 4 months Orders: Orders Complete Blood Count Auto Diff 4 Months D64.9 - Anemia, unspecified Hemoglobin A1c 4 Months E11.9 - Type 2 diabetes mellitus without complications Vitamin B12 and Folate 4 Months E53.8 - Deficiency of other specified B group vitamins Vitamin D 25-OH Total 4 Months E55.9 - Vitamin D deficiency, unspecified Comprehensive [place]. Panel Fast 4 Months E78.00 - Pure hypercholesterolemia, unspecified Lipid Panel 4 Months E78.00 - Pure hypercholesterolemia, unspecified TSH reflex Free T4 4 Months E78.00 - Pure hypercholesterolemia, unspecified UA CC w/rflx Micro + Cult 4 Months R30.0 - Dysuria Medications: New Trelegy Ellipta 100-62.5-25 mcg ([id number]) 1 inh inhalation DAILY 60 ea 5RF NS
== END 2024-11-18 09:53 | disposition home or self-care (01) ==
LOC: HO.HMCH 08:45
PROVIDERS: PCP Internal Medicine; Visit Provider Internal Medicine
DX: I12.9 Hypertensive chronic kidney disease with stage 1 through stage 4 chronic kidney disease, or unspecified chronic kidney disease (principal); J44.9 Chronic obstructive pulmonary disease, unspecified; C34.90 Malignant neoplasm of unspecified part of unspecified bronchus or lung; N18.31 Chronic kidney disease, stage 3a; E78.00 Pure hypercholesterolemia, unspecified; D64.81 Anemia due to antineoplastic chemotherapy; T45.1X5A Adverse effect of antineoplastic and immunosuppressive drugs, initial encounter; R73.01 Impaired fasting glucose; K29.50 Unspecified chronic gastritis without bleeding; G62.9 Polyneuropathy, unspecified; E53.8 Deficiency of other specified B group vitamins; E55.9 Vitamin D deficiency, unspecified

== ENCOUNTER → 2024-11-18 08:44 | Outpatient (BNVA) | payer MEDICARE, OTHER, SELFPAY | PROVIDERS: PCP Internal Medicine; Visit Provider Internal Medicine | DX: C34.90 Malignant neoplasm of unspecified part of unspecified bronchus or lung (principal); I12.9 Hypertensive chronic kidney disease with stage 1 through stage 4 chronic kidney disease, or unspecified chronic kidney disease; N18.31 Chronic kidney disease, stage 3a; E78.00 Pure hypercholesterolemia, unspecified; D64.81 Anemia due to antineoplastic chemotherapy; T45.1X5D Adverse effect of antineoplastic and immunosuppressive drugs, subsequent encounter; J44.9 Chronic obstructive pulmonary disease, unspecified; R73.01 Impaired fasting glucose; K29.50 Unspecified chronic gastritis without bleeding; G62.9 Polyneuropathy, unspecified; E53.8 Deficiency of other specified B group vitamins; E55.9 Vitamin D deficiency, unspecified; E66.3 Overweight; Z68.25 Body mass index [BMI] 25.0-25.9, adult; Z71.3 Dietary counseling and surveillance | CPT/HCPCS: 96127; 99212 ==

== ENCOUNTER 2025-03-17 07:07 | Outpatient (REF) | payer MEDICARE, OTHER, SELFPAY ==
--- OUTSIDE RECORDS SUMMARY | 2025-03-17 07:10 | XMS_ITS | Encounter Summary ---
Author Organization [facility] Address [address] [place] [address] Care Team Providers Care Blow Molding Machine Operator Name Role Phone Dario Reed MD Primary Care Provider +1- [phone] Encounter Details Date Type Department Care Team Description 06/20/2022 Social Work [facility] Oncology Services [address] [place] [address] Saw Gagnon, [facility] [place] Social History Tobacco Use Types [...] on filedocumented in this encounter Care Teams Blow Molding Machine Operator Relationship Specialty Start Date End Date Dario Reed MD [address] [place] [address] [place] [address] PCP - General Internal Medicine 06/04/22 documented as of this encounter
--- OUTSIDE RECORDS SUMMARY | 2025-03-17 07:10 | XMS_ITS | Clinical Summary ---
Author Organization [facility], Address [address] [place] [address] [place] [address] Phone Care Team Providers Care Senior Staff Accountant Name Role Phone Dario Reed MD Primary Care Provider +1- [phone] Medications losartan (Cozaar) 25 MG tablet Take [...] of 1 - PCV) 11/21/2007 Influenza Vaccine (#1) 2025 Hepatitis B Vaccine Aged Out No longe r eligible based on patient's age to complete this topic Insurance Medicare Unicare Care Teams Senior Staff Accountant Relationship Specialty Start Date End Date Dario Reed MD [address] [place] [id number] PCP - General Internal Medicine 01/30/23
--- OUTSIDE RECORDS SUMMARY | 2025-03-17 07:10 | XMS_ITS | Clinical Summary ---
Author Organization [facility] Address [address] [place] [address] Care Team Providers Care Swimmer Name Role Phone Dario Reed MD Primary Care Provider +1- [phone] Allergies No known active allergies Medications Medication [...] total) by mouth daily. 0 Active Umeclidinium [place] 62.5 MCG/ACT AEPB Inhale into the lungs. [...] 96 11/16/2023 9:33 AM EDT Temperature 36.3 C (97.3 F) 11/16/2023 9:33 AM EDT Respiratory Rate 18 07/18/2022 8:00 AM EST [...] Fall Risk Assessment 2022 Influenza Vaccine (#1) 2025 RSV Adult > 60+ Yrs or Pregn ant (1 - 1-dose 75+ series) 2032 Hepatitis B Vaccines Aged Out No long er eligible based on patient's age to complete this topic RSV Ped < 20 months Aged Out No longe r eligible based on patient's age to complete this topic Care Teams Swimmer Relationship Specialty Start Date End Date Dario Reed MD [address] [place] [address] [place] [address] PCP - General Internal Medicine 06/04/22
--- OUTSIDE RECORDS SUMMARY | 2025-03-17 07:10 | XMS_ITS | Encounter Summary ---
Author Organization [facility] Address [address] [place] [id number] Care Team Providers Care Master Ocean Yacht Name Role Phone Dario Reed MD Primary Care Provider [phone] Encounter Details Date Type Department Care Team Description 06/27/2022 Social Work [facility] Oncology Services [address] [place] [phone] Saw Gagnon, [facility] [...] on filedocumented in this encounter Care Teams Master Ocean Yacht Relationship Specialty Start Date End Date Dario Reed MD [address] [place] [address] [place] [address] PCP - General Internal Medicine 06/04/22 documented as of this encounter
--- OUTSIDE RECORDS SUMMARY | 2025-03-17 07:10 | XMS_ITS ---
Author Organization [facility] Address [address] [place] [phone] Phone Care Team Providers Care Sulphate Tester Name Role Phone Dario Reed MD Primary Care Provider [phone] Active Problems Problem Noted Date Diagnosed Date Hypothyroidism (acquired) 10/31/2024 Chronic renal impairment, stage 3 (moderate) Gastroesophageal reflux disease without esophagi tis 07/14/2024 Chronic obstructive pulmonar y disease ([facility] V24, [facility] V28) 07/14/2024 HTN (hypertension) 07/14/2024 [...] Non-small cell cancer of rig ht lung ([facility] V24, [facility] V28) 06/11/2022 Cancer Staging:Clinical:Stage Unknown(rcTX, [...] of rig ht lung (CMS/HCC V24, CMS/HCC V28)Hypothyroidism (acquired) Treatment Medications Current Day (Day 1 , Cycle 6 - Planned for 03/21/2025) Next Day (Day 1, Cycle 7 - Planned for 04/18/2025) durvalumab (IMFINZI)durvalumab (IMFINZI) chemo IVPB 250 mL [...]
--- OUTSIDE RECORDS SUMMARY | 2025-03-17 07:10 | XMS_ITS | Clinical Summary ---
Author Organization [facility] Address [address] [place] [phone] Phone Care Team Providers Care Tripe Scraper Name Role Phone Dario Reed MD Primary Care Provider [phone] Allergies No known active allergies Medications albuterol [...] (20 mg total) by mouth daily. Active cholecalciferol (VITAMIN D-3) 50 mcg (2,000 unit) tablet Take 1 tablet (2,000 Units total) by mouth 1 (one) time each day. Active atorvastatin (LIPITOR) 10 mg tablet Take 1 tablet (10 mg total) by mouth at bedtime. Active prochlorperazin e (COMPAZINE) 10 mg tabletIndicatio ns:Non-small cell cancer of right lung (CMS/HCC V24, CMS/HCC V28) Take 1 tablet (10 mg total) by mouth every 6 (six) hours if needed for nausea or vomiting. 60 tablet 3 5 Active magnesium oxide (MAG-OX) 400 mg (241.3 elemental magnesium) tablet Take 1 tablet (400 mg total) by mouth 2 (two) times a day. 60 tablet 5 5 Active Trelegy Ellipta 100-62.5-25 mcg inhaler 5 Active oxyCODONE-aceta minophen (PERCOCET) 5-325 mg per tabletIndicatio ns:Non-small cell cancer of right lung (CMS/[facility] V24, CMS/HCC V28) Take 1-2 tabs every 4 hrs prn pain Partial fill allowed 120 tablet 5 Active oxyCODONE-aceta minophen (PERCOCET) 5-325 mg per tabletIndicatio ns:Non-small cell cancer of right lung (CMS/HCC V24, CMS/HCC V28) Take 1-2 tabs every 4 hrs prn pain Partial fill allowed 120 tablet 5 03/06/20 25 Discontinu ed(Reorder ) Active Problems Problem Noted Date Diagnosed Date Hypothyroidism (acquired) 10/31/2024 Chronic renal impairment, stage 3 (moderate) Gastroesophageal reflux disease without esophagi tis 07/14/2024 Chronic obstructive pulmonar y disease (CMS/[facility] V24, CMS/[facility] V28) 07/14/2024 HTN (hypertension) 07/14/2024 Mediastinal lymphadenopathy [...] Encounters Date Type Department Care Team Description 03/01/2025 8:59 AM EDT - 03/01/2025 11:59 PM EDT Hospital Encounter [address] [place] [phone] Vitaliy De MD Non-small cell cancer of right lung ([facility]/HCC V24, [facility]/HCC V28) (Primary Dx); Hypothyroidism (acquired) Discharge Disposition: Home or Self Care 02/16/2025 9:30 AM EDT Office Visit [facility] Hematology Oncology [address] [place] [phone] Vitaliy De MD Non-small cell cancer of right lung ([facility]/HCC V24, [facility]/HCC V28) (Primary Dx); Mediastinal lymphadenopathy 01/24/2025 9:30 AM EDT - 01/24/2025 11:59 PM EDT Hospital Encounter [facility] Infusion Center [address] [place] [phone] Vitaliy De MD Non-small cell cancer of right lung ([facility]/HCC V24, [facility]/HCC V28) (Primary Dx); Hypothyroidism (acquired) Discharge Disposition: Home or Self Care 01/24/2025 9:15 AM EDT Office Visit [facility] Hematology Oncology [address] [place] [phone] Vitaliy De MD Non-small cell cancer of right lung ([facility]/HCC V24, [facility]/HCC V28) 12/27/2024 10:00 AM EDT - 12/27/2024 11:59 PM EDT Hospital Encounter [address] [phone] Vitaliy De MD Non-small cell cancer of right lung ([facility]/HCC V24, [facility]/HCC V28) (Primary Dx); Hypothyroidism (acquired) Discharge Disposition: Home or Self Care 12/27/2024 9:45 AM EDT Office Visit [facility] Hematology Oncology [address] [place] [phone] Vitaliy De MD Non-small cell cancer of right lung ([facility]/HCC V24, [facility]/HCC V28) (Primary Dx) from Last 3 Months Surgical History Surgery Date Site/Laterality Comments OTHER SURGICAL HISTORY 05/21/2022 Right PROCEDURE: HI THORACOSCOPY W/LOBECTOMY SINGLE LOBE; COMMENT: RLL OTHER SURGICAL HISTORY PROCEDURE: COLONOSCOPY, SURGICAL ESOPHAGOGASTRODUODENOSCOPY PROCEDURE: HI ESOPHAGOGASTRODUODENOSCOPY TRANSORAL DIAGNOSTIC CHOLECYSTECTOMY PROCEDURE: LAPAROSCOPY, CHOLECYSTECTOMY Medical History Medical History Date Comments Benign essential hypertension DX :Benign essential hypertension Chronic gastritis without bleeding DX:Chronic gastritis without bleeding COPD (chronic obstructive pu lmonary disease) (CMS/HCC V24, CMS/HCC V28) DX:COPD (chronic o bstructive pulmonary disease) ([facility]) Cough DX:Cough Folate deficiency DX:Folate defi ciency [...] Sign Reading Time Taken Comments Blood Pressure 110/74 03/01/2025 9:06 AM EDT Pulse 90 03/01/2025 9:06 AM EDT Temperature 36.4 C (97.6 F) 03/01/2025 9:06 AM EDT Respiratory Rate 16 11/11/2024 8:50 AM EDT Oxygen Saturation 97% 03/01/2025 9:06 AM EDT Inhaled Oxygen Concentration - - Weight 72.1 kg (159 lb) 03/01/2025 9:06 AM EDT Height 170.2 cm (5' 7 ) 11/11/2024 8:50 AM EDT Body Mass Index 24.9 11/11/2024 8:50 AM EDT Plan of Treatment Upcoming Encounters Date Type Department Care Team (Late st Contact Info) Description 03/28/2025 9:00 AM EDT Office Visit [facility] Hematology Oncology [address] [place] [phone] Vitaliy De MD [address] [place] [phone] 03/29/2025 9:00 AM EDT Appointment [facility] Infusion [facility] [address] [phone] Health Maintenance Due Date Last Done Comments COVID-19 Vaccine (#1) 1962 DTaP,Tdap,and Td Vaccines (1 - Tdap) 1976 Pneumococcal Vaccine: 50+ Years (1 of 2 - PCV) 1976 Zoster Vaccines (1 of 2) 1976 RSV Immunization Adult Patients (1 - Risk 60-74 years 1-dose series) 2017 Abdominal Aortic Aneurysm (AAA) Screen 06/08/2022 Cholesterol Screening (Lipid Panel) 06/08/2022 Colorectal Cancer Screening: Colonoscopy 06/08/2022 Hepatitis C Screening 06/08/2022 Medicare Annual Wellness Visit 06/08/2022 Social Influencers of Health Screening 06/08/2022 Depression Screening 06/29/2024 Influenza Vaccine (#1) 2025 Hypertension/CHF/CAD Annual BMP Blood Test 02/15/2026 02/15/2025, 01/23/2025, 12/23/2024, Additional history exists Falls Risk Assessment 03/01/2026 03/01/2025 HIB Vaccines Aged Out No longer eligi [...] Diagnosis Comments CBC WITH AUTO DIFFERENTIAL Routine 02/15/2025 9:10 AM EDT Non-small cell cancer of right lung (CMS/HCC V24, CMS/HCC V28) THYROID STIMULATING HORMONE Routine 02/15/2025 9:10 AM EDT Hypothyroidism (acquired) MAGNESIUM Routine 02/15/2025 9:10 AM EDT Non-small cell cancer of right lung (CMS/HCC V24, CMS/HCC V28) COMPREHENSIVE METABOLIC PANEL Routine 02/15/2025 9:10 AM EDT Non-small cell cancer of right lung (CMS/HCC V24, CMS/HCC V28) CBC AND DIFFERENTIAL Routine 02/15/2025 9:10 AM EDT Non-small cell cancer of right lung (CMS/HCC V24, CMS/HCC V28) CBC WITH AUTO DIFFERENTIAL Routine 01/23/2025 8:56 AM EDT Non-small cell cancer of right lung (CMS/HCC V24, CMS/HCC V28) THYROID STIMULATING HORMONE Routine 01/23/2025 8:56 AM EDT Hypothyroidism (acquired) MAGNESIUM Routine 01/23/2025 8:56 AM EDT Non-small cell cancer of right lung (CMS/HCC V24, CMS/HCC V28) COMPREHENSIVE METABOLIC PANEL Routine 01/23/2025 8:56 AM EDT Non-small cell cancer of right lung (CMS/HCC V24, CMS/HCC V28) CBC AND DIFFERENTIAL Routine 01/23/2025 8:56 AM EDT Non-small cell cancer of right lung (CMS/HCC V24, CMS/HCC V28) CBC WITH AUTO DIFFERENTIAL Routine 12/23/2024 8:57 AM EDT Non-small cell cancer of right lung (CMS/HCC V24, CMS/HCC V28) THYROID STIMULATING HORMONE Routine 12/23/2024 8:57 AM EDT Hypothyroidism (acquired) MAGNESIUM Routine 12/23/2024 8:57 AM EDT Non-small cell cancer of right lung (CMS/HCC V24, CMS/HCC V28) COMPREHENSIVE METABOLIC PANEL Routine 12/23/2024 8:57 AM EDT Non-small cell cancer of right lung (CMS/HCC V24, CMS/HCC V28) CBC AND DIFFERENTIAL Routine 12/23/2024 8:57 AM EDT Non-small cell cancer of right lung (CMS/HCC V24, CMS/HCC V28) from Last 3 Months Results * (ABNORMAL) CBC auto differential (02/15/2025 9:10 AM EDT) Only the most recent of3 resultswithin the time period is included. WBC 4.9 4.8 - 10.8 K/[facility] LAB HEMETOLOGY METHOD 02/15/2025 12:38 PM EDT [facility] ([facility]) [facility] RBC 4.20(L) 4.50 - 5.50 M/[facility] LAB HEMETOLOGY METHOD 02/15/2025 12:38 PM [facility] Hemoglobin 12.6(L) 13.5 - 17.5 g/dL LAB HEMETOLOGY METHOD 02/15/2025 12:38 PM [facility] Hematocrit 39.2(L) 42.0 - 54.0 % LAB HEMETOLOGY METHOD 02/15/2025 12:38 PM [facility] MCV 92.7 79.0 - 98.0 FL LAB HEMETOLOGY METHOD [facility]25 [facility] MCH 29.8 27.0 - 32.0 pcg LAB HEMETOLOGY METHOD 02/15/2025 12:38 PM [facility] MCHC 32.1 32.0 - 37.0 g/dL LAB HEMETOLOGY METHOD 02/15/2025 12:38 PM [facility] RDW 13.0 11.0 - 15.0 % LAB HEMETOLOGY METHOD 02/15/2025 12:38 PM [facility] Platelets 237 130 - 400 K/mcL LAB HEMETOLOGY METHOD 02/15/2025 12:38 PM [facility] MPV 10.5 7.0 - 11.0 FL LAB HEMETOLOGY METHOD 02/15/2025 12:38 PM [facility] NRBC 0.0 <1.0 % LAB HEMETOLOGY METHOD 02/15/2025 12:38 PM [facility] NRBC Absolute 0.00 <0.10 K/mcL LAB HEMETOLOGY METHOD 02/15/2025 12:38 PM [facility] Neutrophils Relative 76.3 % LAB HEMETOLOGY METHOD 02/15/2025 12:38 PM [facility] Lymphocytes Relative 11.4 % LAB HEMETOLOGY METHOD 02/15/2025 12:38 PM [facility] Monocytes Relative 7.5 % LAB HEMETOLOGY METHOD 02/15/2025 12:38 PM EDT [facility] Eosinophils Relative 2.8 % LAB HEMETOLOGY METHOD 02/15/2025 12:38 PM EDT [facility] Basophils Relative 1.2 % LAB HEMETOLOGY METHOD 02/15/2025 12:38 PM EDT [facility] Immature Granulocytes Relative 0.8 % LAB HEMETOLOGY METHOD 02/15/2025 12:38 PM EDT [facility] Neutrophils Absolute 3.75 1.50 - 7.00 K/mcL LAB HEMETOLOGY METHOD 02/15/2025 12:38 PM EDT [facility] Lymphocytes Absolute 0.56(L) 1.00 - 5.00 K/mcL LAB HEMETOLOGY METHOD 02/15/2025 12:38 PM EDT [facility] Monocytes Absolute 0.37 0.20 - 1.00 K/mcL LAB HEMETOLOGY METHOD 02/15/2025 12:38 PM EDT [facility] Eosinophils Absolute 0.14 0.00 - 0.50 K/mcL LAB HEMETOLOGY METHOD 02/15/2025 12:38 PM EDT [facility] Basophils Absolute 0.06 0.00 - 0.20 K/mcL LAB HEMETOLOGY METHOD 02/15/2025 12:38 PM EDT [facility] Immature Granulocytes Absolute 0.04(H) 0.00 - 0.03 K/mcL LAB HEMETOLOGY METHOD 02/15/2025 12:38 PM EDT [facility] Blood Venous blood specimen / Unknown Venipuncture / Unknown 02/15/2025 9:10 AM EDT 02/15/2025 12:05 PM EDT us Vitaliy De MD LAB BLOOD ORDERABLES Final Result [facility] [address] [place] [address], [place] [phone] * Thyroid stimulating hormone (02/15/2025 9:10 AM EDT) Only the most recent of3 resultswithin the time period is included. TSH 2.11 0.40 - 4.00 mcIU/mL LAB CHEMISTRY METHOD 02/15/2025 1:58 PM EDT [facility] Blood Venous blood specimen / Unknown Venipuncture / Unknown 02/15/2025 9:10 AM EDT 02/15/2025 12:05 PM EDT us Vitaliy De MD LAB BLOOD ORDERABLES Final Result Performing Organization Address [facility]/ZIP Co de Phone Number [facility] [address] [place] [address], * Magnesium (02/15/2025 9:10 AM EDT) Only the most recent of3 resultswithin the time period is included. Pathologist [facility] Magnesium 2.1 1.9 - 2.6 mg/dL LAB CHEMISTRY METHOD 02/15/2025 12:55 PM EDT [facility] Blood Venous blood specimen / Unknown Venipuncture / Unknown 02/15/2025 9:10 AM EDT 02/15/2025 12:05 PM EDT us Vitaliy De MD LAB BLOOD ORDERABLES Final Result Performing Organization Address City/[facility]/ZIP Co de Phone Number [facility] [address] [place] [address], [place] [phone] * (ABNORMAL) Comprehensive metabolic panel (02/15/2025 9:10 AM EDT) Only the most recent of3 resultswithin the time period is included. Sodium 136 133 - 145 mmol/L LAB CHEMISTRY METHOD 02/15/2025 12:58 PM EDT [facility] Potassium 4.9 3.5 - 5.5 mmol/L LAB CHEMISTRY METHOD 02/15/2025 12:58 PM [facility] Chloride 102 96 - 110 mmol/L LAB CHEMISTRY METHOD 02/15/2025 12:58 PM [facility] CO2 27 21 - 32 mmol/L LAB CHEMISTRY METHOD 02/15/2025 12:58 PM [facility] Anion Gap 7 3 - 11 LAB CHEMISTRY METHOD 02/15/2025 12:58 PM [facility] Glucose 114(H) 70 - 100 mg/dL LAB CHEMISTRY METHOD 02/15/2025 12:58 PM [facility] BUN 21 5 - 25 mg/dL LAB CHEMISTRY METHOD 02/15/2025 12:58 PM [facility] Creatinine 2.04(H) 0.70 - 1.30 mg/dL LAB CHEMISTRY METHOD 02/15/2025 12:58 PM [facility] eGFR 35(L) >=60 mL/min/1. 73m2 LAB CHEMISTRY METHOD 02/15/2025 12:58 PM [facility] Comment:Calculation based on the Chronic Kidney Disease Epidemiology Collaboration (CKD-EPI) equation refit without adjustment for race. BUN/Creatinine Ratio 10.3 LAB CHEMISTRY METHOD 02/15/2025 12:58 PM [facility] Calcium 10.0 8.5 - 10.5 mg/dL LAB CHEMISTRY METHOD 02/15/2025 12:58 PM [facility] AST (SGOT) 11 10 - 42 unit/L LAB CHEMISTRY METHOD 02/15/2025 12:58 PM [facility] ALT (SGPT) 12 10 - 60 unit/L LAB CHEMISTRY METHOD 02/15/2025 12:58 PM [facility] Alkaline Phosphatase 96 42 - 121 unit/L LAB CHEMISTRY METHOD 02/15/2025 12:58 PM EDT [facility] Total Protein 6.8 6.0 - 8.0 g/dL LAB CHEMISTRY METHOD 02/15/2025 12:58 PM EDT [facility] Albumin 4.0 3.2 - 5.0 g/dL LAB CHEMISTRY METHOD 02/15/2025 12:58 PM EDT [facility] Total Bilirubin 0.6 0.0 - 1.4 mg/dL LAB CHEMISTRY METHOD 02/15/2025 12:58 PM EDT [facility] Blood Venous blood specimen / Unknown Venipuncture / Unknown 02/15/2025 9:10 AM EDT 02/15/2025 12:05 PM EDT us Vitaliy De MD LAB BLOOD ORDERABLES Final Result [facility]) [facility] [address] [place] [address], from Last 3 Months Insurance MEDICARE [facility] Advance Directives Documents on File Type Date Recorded Patient Assistant Quality Manager Expl anation Health Care Decision (hx) 05/08/2022 [...] currently active code status orders. Care Teams Tripe Scraper Relationship Specialty Start Date End Date Dario Reed MD [address] [place] [address] [address] [place], [place] PCP - General Internal Medicine 04/02/22
--- OUTSIDE RECORDS SUMMARY | 2025-03-17 07:10 | XMS_ITS ---
Author Organization [facility] Address [address] [place] [address] Care Team Providers Care Grain Oilseed Or Pasture Farm Worker Name Role Phone Dario Reed MD Primary Care Provider [phone]- [phone] Active Problems Problem Noted Date Diagnosed Date [...] documented for this patient in [facility]. Treatments may have been administered in another system.
[2025-03-17 07:19] LABS: MANUAL DIFF FLAG NO
[2025-03-17 07:50] LABS: Hematocrit 38.4 % (42.0-52.0); Hemoglobin 12.7 g/dl (14.0-18.0); Imm Gran Abs Auto 0.01 X10*3/uL (0.00-0.03); Imm Gran Pct Auto 0.2 % (0.0-0.4); Lymphocytes Absolute Auto 0.7 X10*3/uL (1.2-4.9); Mean Corpuscular HGB Conc 33.1 g/dl (31.0-36.0); Mean Corpuscular Hemoglobin 30.3 pg (27.0-33.0); Mean Corpuscular Volume 91.6 fL (80.0-98.0); NRBC Abs Auto 0.000 X10*3/uL (0.0-0.012); NRBC Pct Auto 0.0 /100WBC (0.0-0.2); Platelet Count 224 X10*3/uL (160-400); Red Blood Count 4.19 X10*6/uL (4.60-5.80); White Blood Count 4.3 X10*3/uL (4.8-10.8)
[2025-03-17 07:56] LABS: Hemoglobin A1C 126.7674 umol/L; Total Hemoglobin (HGBA1C) 3307.8790 umol/L
[2025-03-17 08:35] LABS: Appearance Urine Clear; Glucose Urine UA Negative (Negative); PH 5.5 (5.0-9.0); Specific Gravity - Urine 1.015 (1.005-1.025)
[2025-03-17 08:39] LABS: Alanine Aminotransferase 9 U/L (0-40); Albumin Level 4.3 g/dL (3.5-5.0); Alkaline Phosphatase 87 U/L (39-117); Anion Gap 12 (12-20); Aspartate Amino Transferase 19 U/L (5-37); Blood Urea Nitrogen 23 mg/dL (9-16); Calcium 9.8 mg/dL (8.4-10.2); Carbon Dioxide 24 mmol/L (22-29); Chloride 109 mmol/L (96-108); Cholesterol 141 mg/dL (<200); Estimated Glomerular Filt Rate 40; HDL Cholesterol 38 mg/dL (>40); Potassium 4.7 mmol/L (3.3-5.1); Sodium 140 mmol/L (135-145); Total Protein 6.8 g/dL (6.5-8.0); Triglycerides 136 mg/dL (<150)
[2025-03-17 08:48] LABS: Folate > 20.0 ng/mL (> or = 4.0); Vitamin B12 1241 pg/mL (200-900)
== END 2025-03-17 07:08 | disposition home or self-care (01) ==
LOC: HO.LAB 07:07
PROVIDERS: PCP Internal Medicine; Visit Provider Internal Medicine
DX: E53.8 Deficiency of other specified B group vitamins (principal); E55.9 Vitamin D deficiency, unspecified; D64.9 Anemia, unspecified; E78.00 Pure hypercholesterolemia, unspecified; R30.0 Dysuria; E11.9 Type 2 diabetes mellitus without complications
CPT/HCPCS: 36415; 80053; 80061; 81003; 82306; 82607; 82746; 83036; 84443; 85025

== ENCOUNTER 2025-03-21 09:21 | Outpatient (AMB) | payer MEDICARE, OTHER, SELFPAY ==
--- NOTE | 2025-03-21 09:35 | MHC.PC.OV ---
Vital Signs 03/21/25 09:37 Height 5 ft 7 in Weight 155 lb 2 oz BMI 24.3 BP 118/92 H Blood Pressure Location Lt brachial Position Sitting Pulse 99 Pulse Source Pulse Oximeter Pulse Oximetry (%) 97 Oxygen Delivery Method Room Air Intake Visit Reasons: [facility] Medical Administrative Specialist Required: No Accompanied by: Self / Same As Patient Allergies No Known Allergies (No Known Allergies*) Allergy (Verified 03/21/25 09:46) Medication List - Last Reconciled 03/21/25 by Dario Reed MD albuterol sulfate 90 mcg/actuation 2 puffs inhalation Q4-6H PRN 90 days atorvastatin 10 mg PO BEDTIME 90 days bisacodyl (Dulcolax (bisacodyl)) 10 mg (2 x 5 mg) PO ONCE 5 days cholecalciferol (vitamin D3) 50 mcg PO DAILY 90 days cyanocobalamin (vitamin B-12) ER 1,000 mcg PO DAILY 90 days folic acid 1 mg PO DAILY losartan 50 mg PO DAILY magnesium 400 mg PO BID omeprazole 20 mg PO BID 90 days polyethylene glycol 3350 (Miralax) 17 grams PO DAILY 1 day prochlorperazine maleate 10 mg PO Q6H Trelegy Ellipta 100-62.5-25 mcg (ckojvpneypx-sgfizqruh-xwushmif) 1 inh inhalation DAILY NS Tobacco use date assessed: 03/21/25 Last assessed Fall Risk: 03/21/25 Dental Screening Dental Screen Date: 03/21/25 Did you have a dental visit in the last 12 months?: No Did you have a dental problem in the last 6 months where you did not have access to dental care?: No Was dental information given to patient?: No HPI [facility] f/u HPI Details Patient comes in today for his follow up visit States that he currently feels okay He is currently still on maintenance immunotherapy with Durvalumab, which he will be on for at least a year He completed his radiation therapy for recurrent lung cancer last month a few months ago on 10/07/2024, concurrent with chemotherapy with weekly Carboplatin/Taxol that was started on 08/26/2024 He denies any headaches or dizziness Denies any chest pains; still has some MONTES but states that these have been stable No nausea/vomiting, no abdominal pain No change in bowel habits noted He had his follow up labs done last week - to discuss his results [facility] Medical History Recurrent non-small cell lung cancer (NSCLC) Chronic kidney disease, stage III (moderate) Primary cancer of right lower lobe of lung (~04/2022) Personal history of nicotine dependence Tubular adenoma of colon (~2011) Cough Overweight (BMI 25.0-29.9) Folate deficiency Vitamin B12 deficiency Neuropathy Chronic gastritis without bleeding Impaired fasting glucose Chronic obstructive pulmonary disease (COPD) Pure hypercholesterolemia Benign essential hypertension Surgical History History of lobectomy of lung History of bronchoscopy History of colonoscopy History of esophagogastroduodenoscopy (EGD) History of laparoscopic cholecystectomy Family History Father Hypertension Mother Lung cancer Maternal Aunt Breast cancer Family/Other Hypertension Heart disease Social History Housing: House Alcohol intake: never Patient Tobacco Use Status: Former Tobacco user e-Cigarette/Vaping Use: Never Used Second Hand Smoke Exposure: Yes service: No Current occupational status: unemployed Cognitive needs: No Hearing needs: No Vision needs: Yes Questionnaire PHQ-9 Over the last 2 weeks, how often have you been bothered by any of the following problems? 1. Little interest or pleasure in doing things: not at all 2. Feeling down, depressed, or hopeless: not at all 3. Trouble falling or staying asleep, or sleeping too much: not at all 4. Feeling tired or having little energy: not at all 5. Poor appetite or overeating: not at all 6. Feeling bad about yourself - or that you are a failure or have let yourself or your family down: not at all 7. Trouble concentrating on things, such as reading the newspaper or watching television: not at all 8. Moving or speaking so slowly that other people could have noticed. Or the opposite - being so fidgety or restless that you have been moving around a lot more than usual: not at all 9. Thoughts that you would be better off or of hurting yourself in some way: not at all Total score: 0 Depression Screening Interpretation: Negative Depression Screening Done: Yes 79693 - PHQ-9 Billing: Yes Source: Developed by Drs. Dayron Noriega, Batool Echeverria, Tom Will and colleagues, with an educational blayne from [employer]. Thrive Questionnaire Date Thrive assessed: 03/21/25 I am a: Patient What is your living situation today?: I have a steady place to live Within the past 12 months, did the food you bought not last and you didn't have the money to get more?: I choose not to answer this question Within the past 12 months, did you worry whether your food would run out before you got money to buy more?: I choose not to answer this question Do you have trouble paying for medicines?: I choose not to answer this question Do you have trouble getting transportation to medical appointments?: No Do you have trouble paying your heating and electricity bill?: No Do you have trouble taking care of your child, family member or friend?: No Do you have trouble with day-to-day activities such as bathing, preparing meals, shopping, managing finances, etc.?: No Are you currently unemployed and looking for a job?: No Are you interested in more education?: No Please select the resources that you would like help with: None Currently or been in a relationship where the following occur: I choose not to answer THRIVE Score: 0 AUDIT C Alcohol Use Questionnaire (AUDIT-C) 1. How often do you have a drink containing alcohol?: Never 3. How often do you have six or more drinks on one occasion?: Never Total Score: 0 Score Reviewed/Action Taken: Yes ZACH-7 AMB Questionnaire ZACH-7 Date ZACH - 7 assessed: 07/18/24 Feeling nervous, anxious, or on edge: 0 = Not at all Not being able to stop or control worryin = Not at all Worrying too much about different things: 0 = Not at all Trouble relaxin = Not at all Being so restless that it is hard to sit still: 0 = Not at all Becoming easily annoyed or irritable: 0 = Not at all Feeling afraid as if something awful might happen: 0 = Not at all Total ZAHC-7 score (0-4 normal; 5-9 mild; 10-14 moderate; 15-21 severe): 0 Source: Developed by Drs. Dayron Noriega, Batool Echeverria, Tom Will and colleagues, with an educational blayne from [employer]. Review of Systems Const Denies chills, Denies fatigue, Denies fever(s) and Denies headache(s) ENT Denies dysphagia, Denies dizziness, Denies otalgia, Denies headache(s), Denies neck pain, Denies odynophagia and Denies sore throat Card Denies chest pain, Denies palpitations and Reports dyspnea on exertion (mild) Resp Denies chest congestion, Denies cough and Reports dyspnea on exertion (mild) GI Denies abdominal pain, Denies constipation, Denies dysphagia, Denies heartburn, Denies diarrhea, Denies nausea, Denies odynophagia and Denies vomiting Denies difficulty urinating, Denies dysuria, Denies nocturia and Denies urinary frequency Musc Denies back pain, Denies arthralgias and Denies neck pain Skin/Breast Denies rash Neuro Denies dizziness and Denies headache(s) Endo Denies fatigue and Denies palpitations Physical exam (Primary Care) Vital Signs: Last Vital Signs Pulse 99 03/21/25 09:37 BP 118/92 H 03/21/25 09:37 Pulse Ox 97 03/21/25 09:37 Oxygen Delivery Method Room Air 03/21/25 09:37 BMI result Body Mass Index 24.3 Tobacco/Smoking Status: Tobacco use Status Tobacco use date assessed 03/21/25 03/21/25 09:45 Patient Tobacco Use Status Former Tobacco user 03/21/25 09:39 e-Cigarette/Vaping Use Never Used 03/21/25 09:39 Depression Screening Interpretation: Negative Thrive Assessment: Date of Thrive Assessment Date Thrive assessed 03/21/25 03/21/25 09:39 Currently or been in a relationship where the following occur: I choose not to answer Const General: no acute distress and alert HENMT Ears: TM's normal bilaterally and EAC's normal Throat: Yes posterior oropharynx normal and Yes tonsils normal (no TP congestion) Neck Neck: Yes supple and No lymphadenopathy Thyroid: Thyroid normal Resp Auscultation: clear to auscultation bilaterally, no rales and no wheezes Cardio Rate: regular rate Rhythm: regular rhythm Heart sounds: no murmurs GI Palpation (GI): Soft to palpation and nontender Auscultation: normal bowel sounds General: Yes no CVA tenderness Back/Spine/Pelvis Back: no CVA tenderness Thoracic/Lumbar Spine: No lumbar spinal tenderness Skin Rashes: no rashes Extrem General: Yes no clubbing, cyanosis or edema Results Reviewed Results Reviewed: Laboratory Tests 03/15/24 03/17/25 03/17/25 07:48 07:12 07:17 WBC 4.3 L Hgb 12.7 L Hct 38.4 L Plt Count 224 Sodium 140 Potassium 4.7 Creatinine 1.71 H Estimated GFR 40 Fasting Glucose 112 H Hemoglobin A1c % 5.7 Calcium 9.8 AST 19 ALT 9 Triglycerides 136 Cholesterol 141 LDL Cholesterol, Calc 76 HDL Cholesterol 38 L Vitamin B12 1241 H 25-OH Vitamin D Total 77.9 TSH 1.19 Ur Specific [place] 1.015 Urine Protein Negative Urine Glucose (UA) Negative Urine Blood Negative Urine Nitrite Negative Ur Leukocyte Esterase Negative Microalb/Creat Ratio 5.5 Coding Level of Care Code Est Pt Level 4 (24433) Diagnoses Recurrent non-small cell lung cancer (NSCLC) C34.90 Stage 3a chronic kidney disease N18.31 Chronic kidney disease stage 3 subtype: stage 3a (GFR 45-59) Pure hypercholesterolemia E78.00 Benign essential hypertension I10 Anemia due to antineoplastic chemotherapy D64.81; T45.1X5A Anemia type: other cause Other causes of anemia: antineoplastic chemotherapy Chronic obstructive pulmonary disease, unspecified COPD type J44.9 COPD type: unspecified COPD Impaired fasting glucose R73.01 Chronic gastritis without bleeding, unspecified gastritis type K29.50 Gastritis type: unspecified gastritis Neuropathy G62.9 Vitamin B12 deficiency E53.8 Folate deficiency E53.8 Vitamin D deficiency E55.9 Additional Codes PHQ-9 - 46961 - PHQ-9 Billing: Yes ([id number]) Assessment & Plan Assessment & Plan (1) Recurrent non-small cell lung cancer (NSCLC): Code(s): C34.90 - Malignant neoplasm of unspecified part of unspecified bronchus or lung Category: Medical Plan: Patient was diagnosed with recurrence of lung cancer (non-small cell) earlier this year and he was started on chemoradiation therapy He started chemotherapy with weekly Carboplatin/Taxol on 08/26/2024 and radiation therapy on 08/25/2024 - he completed his radiation Tx back on 10/07/2024 Patient tolerated his chemoradiation reasonably well and he is now maintained on immunotherapy with Durvalumab x [address] following completion of his chemoradiation showed stable to decreased mediastinal lymphadenopathy Follow up with oncology and thoracic surgery as scheduled (2) Chronic kidney disease, stage III (moderate): Code(s): N18.30 - Chronic kidney disease, stage 3 unspecified Category: Medical Qualifiers: Chronic kidney disease stage 3 subtype: stage 3a (GFR 45-59) Qualified Code(s): N18.31 - Chronic kidney disease, stage 3a Plan: Patient's renal function seems to have declined slightly from previous on his recent labs He is again reminded to avoid taking any NSAIDs; may take Tylenol PRN instead for pain but no more than 4 tablets a day He is also reminded to try to maintain adequate hydration Follow up with nephrology (Dr. Dominguez) as scheduled (3) Pure hypercholesterolemia: Code(s): E78.00 - Pure hypercholesterolemia, unspecified Category: Medical Plan: Results of his labs done last week reviewed and discussed with patient Reinforced low cholesterol diet Continue Atorvastatin 10 mg QD Will recheck his labs and fasting lipids in 4 months for follow up (4) Benign essential hypertension: Code(s): I10 - Essential (primary) hypertension Category: Medical Plan: Reinforced low sodium diet - goal is systolic BP of at least 130 mm or less Continue Losartan 50 mg QD - dose was reduced by nephrology a few months ago He used to take Amlodipine 5 mg QD as well but this was HELD due to low BP and recurrent dizziness/orthostasis and eventually discontinued Patient is again reminded to continue monitoring his BP regularly (5) Anemia: Code(s): D64.9 - Anemia, unspecified Category: Medical Qualifiers: Anemia type: other cause Other causes of anemia: antineoplastic chemotherapy Qualified Code(s): D64.81 - Anemia due to antineoplastic chemotherapy; T45.1X5A - Adverse effect of antineoplastic and immunosuppressive drugs, initial encounter Plan: Patient is again slightly anemic on his recent labs done last week - H/H at 12.7/38.4 He is advised that this is likely be due to his CKD (anemia of chronic disease) but could also be related to his recent chemotherapy Will continue to monitor his CBC regularly (6) Chronic obstructive pulmonary disease (COPD): Code(s): J44.9 - Chronic obstructive pulmonary disease, unspecified Category: Medical Qualifiers: COPD type: unspecified COPD Qualified Code(s): J44.9 - Chronic obstructive pulmonary disease, unspecified Plan: Continue Albuterol HFA 2 puffs 4 times a day PRN He was previously doing well on Incruse Ellipta but had to be switched back to Spiriva due to formulary restrictions We switched him over to Trelegy 100-62.5-25 mcg 1 inhalation QD at his last visit and states that this has been working much better for him (7) Impaired fasting glucose: Code(s): R73.01 - Impaired fasting glucose Category: Medical Plan: His FBS was still high at 112 mg/dl but his HgbA1c was normal at 5.7% on his labs done last week HgbA1c was previously at 5.1% so this has increased over the past few months Reinforced low calorie/low carb diet and exercise as tolerated Will continue to monitor his serum glucose level regularly (8) Chronic gastritis without bleeding: Code(s): K29.50 - Unspecified chronic gastritis without bleeding Category: Medical Qualifiers: Gastritis type: unspecified gastritis Qualified Code(s): K29.50 - Unspecified chronic gastritis without bleeding Plan: S/P EGD in September 2018 Continue Omeprazole 20 mg BID Follow up with GI (Dr. 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 EMG in the right L4-S1 innervated muscles were normal (10) Vitamin B12 deficiency: Code(s): E53.8 - Deficiency of other specified B group vitamins Category: Medical Plan: His Vitamin B12 level was previously high at 1886 pg/ml and is still slightly higher than normal at 1241 pg/ml on his recent labs Continue Vitamin B12 tablet every other day - he was supposed to take this QOD but apparently forgot and is still taking this daily Will recheck his Vitamin B12 level in 4 months for follow up (11) Folate deficiency: Code(s): E53.8 - Deficiency of other specified B group vitamins Category: Medical Plan: Continue Folic Acid 1 mg QD (12) Vitamin D deficiency: Code(s): E55.9 - Vitamin D deficiency, unspecified Category: Medical Plan: Continue Vitamin D3 2000 units QD Plan Follow up in 4 months Orders: Orders Complete Blood Count Auto Diff 4 Months D64.9 - Anemia, unspecified Comprehensive [place]. Panel Fast 4 Months E78.00 - Pure hypercholesterolemia, unspecified TSH reflex Free T4 4 Months E78.00 - Pure hypercholesterolemia, unspecified UA CC w/rflx Micro + Cult 4 Months R30.0 - Dysuria Lipid Panel 4 Months E78.00 - Pure hypercholesterolemia, unspecified Vitamin B12 and Folate 4 Months E53.8 - Deficiency of other specified B group vitamins Vitamin D 25-OH Total 4 Months E55.9 - Vitamin D deficiency, unspecified Hemoglobin A1c 4 Months R73.01 - Impaired fasting glucose
[2025-03-21 09:37] VITALS: BP 118/92; PULSE 99; O2SAT 97; BMI 24.3
--- OUTSIDE RECORDS SUMMARY | 2025-03-21 11:00 | XMS_ITS | Clinical Summary ---
Author Organization [facility], Address [address] [place] [address] [place] [address] Phone Care Team Providers Care Glass Pulverizer Equipment Operator Name Role Phone Dario Reed MD Primary Care Provider [phone]- [phone] Medications losartan (Cozaar) 25 MG tablet Take [...] this topic Insurance Medicare Unicare Care Teams Glass Pulverizer Equipment Operator Relationship Specialty Start Date End Date Dario Reed MD [address] [place] [id number] PCP - General Internal Medicine 01/30/23
--- OUTSIDE RECORDS SUMMARY | 2025-03-21 11:00 | XMS_ITS | Clinical Summary ---
Author Organization [facility] Address [address] [place] [address] Care Team Providers Care Manager Portable Name Role Phone Dario Reed MD Primary Care Provider [phone]- [phone] Allergies No known active allergies Medications Medication [...] total) by mouth daily. 0 Active Umeclidinium [place] 62.5 MCG/ACT AEPB Inhale into the lungs. [...] age to complete this topic Care Teams Manager Portable Relationship Specialty Start Date End Date Dario Reed MD [address] [place] [address] [place] [address] PCP - General Internal Medicine 06/04/22
--- OUTSIDE RECORDS SUMMARY | 2025-03-21 11:00 | XMS_ITS ---
Author Organization [facility] Address [address] [place] [phone] Phone Care Team Providers Care Animal Care Technician Name Role Phone Dario Reed MD Primary Care Provider Active Problems Problem Noted Date Diagnosed Date Hypothyroidism (acquired) 10/31/2024 Chronic renal impairment, stage 3 (moderate) Gastroesophageal reflux disease without esophagi tis 07/14/2024 Chronic obstructive pulmonar y disease ([facility] V24, [facility] V28) 07/14/2024 HTN (hypertension) 07/14/2024 Mediastinal [...] Non-small cell cancer of rig ht lung ([facility] V24, [facility] V28) 06/11/2022 Cancer Staging:Clinical:Stage Unknown(rcTX, cN3, cM0) [...]
--- OUTSIDE RECORDS SUMMARY | 2025-03-21 11:00 | XMS_ITS | Encounter Summary ---
Author Organization [facility] Address [address] [place] [id number] Care Team Providers Care Buggy Driver Name Role Phone Dario Reed MD Primary Care Provider [phone]- [phone] Encounter Details Date Type Department Care Team Description 06/27/[address] [facility] On[facility] Services [address] [place] [id number] [address] Gagnon, [facility] Social History Tobacco Use Types [...] on filedocumented in this encounter Care Teams Buggy Driver Relationship Specialty Start Date End Date Dario Reed MD [address] [place] [address] [place] [address] PCP - General Internal Medicine 06/04/22 documented as of this encounter
--- OUTSIDE RECORDS SUMMARY | 2025-03-21 11:00 | XMS_ITS | Clinical Summary ---
Author Organization [facility] Address [address] [place] [phone] Phone Care Team Providers Care Front End Ui Developer Name Role Phone Dario Reed MD Primary Care Provider +1- [phone] Allergies No known active allergies Medications albuterol [...] tabletIndicatio ns:Non-small cell cancer of right lung (CMS/[facility] V24, CMS/HCC V28) Take 1-2 tabs every [...] tis 07/14/2024 Chronic obstructive pulmonar y disease (CMS/[facility] V24, CMS/[facility] V28) 07/14/2024 HTN (hypertension) 07/14/2024 Mediastinal [...] - 03/01/2025 11:59 PM EDT Hospital Encounter [address] 2[address] [place] [phone] Vitaliy De MD Non-small cell cancer of right lung ([facility]/HCC V24, [facility]/HCC V28) (Primary Dx); Hypothyroidism (acquired) Discharge Disposition: Home or Self Care 02/16/2025 9:30 AM EDT Office Visit [facility] [address] [place] [phone] Vitaliy De MD Non-small cell cancer of right lung ([facility]/HCC V24, [facility]/HCC V28) (Primary Dx); Mediastinal lymphadenopathy 01/24/2025 9:30 AM EDT - 01/24/2025 11:59 PM EDT Hospital Encounter [facility] [address] [place] [phone] Vitaliy De MD Non-small cell cancer of right lung ([facility]/HCC V24, [facility]/HCC V28) (Primary Dx); Hypothyroidism (acquired) Discharge Disposition: Home or Self Care 01/24/2025 9:15 AM EDT Office Visit [facility] [address] [place] [phone] Vitaliy De MD Non-small cell cancer of right lung ([facility]/HCC V24, [facility]/HCC V28) 12/27/2024 10:00 AM EDT - 12/27/2024 11:59 PM EDT Hospital Encounter [address] [phone] Vitaliy De MD Non-small cell cancer of right lung ([facility]/HCC V24, [facility]/HCC V28) (Primary Dx); Hypothyroidism (acquired) Discharge Disposition: Home or Self Care 12/27/2024 9:45 AM EDT Office Visit [facility] [address] [place] [phone] Vitaliy De MD Non-small cell cancer of right lung ([facility]/HCC V24, [facility]/HCC V28) (Primary Dx) from Last 3 Months Surgical History Surgery Date Site/Laterality Comments OTHER SURGICAL HISTORY 05/21/2022 Right PROCEDURE: [place] THORACOSCOPY W/LOBECTOMY SINGLE LOBE; COMMENT: RLL OTHER SURGICAL HISTORY PROCEDURE: COLONOSCOPY, SURGICAL ESOPHAGOGASTRODUODENOSCOPY PROCEDURE: [place] ESOPHAGOGASTRODUODENOSCOPY TRANSORAL DIAGNOSTIC CHOLECYSTECTOMY PROCEDURE: LAPAROSCOPY, CHOLECYSTECTOMY Medical History Medical History Date Comments Benign essential hypertension DX :Benign essential hypertension Chronic gastritis without bleeding DX:Chronic gastritis without bleeding COPD (chronic obstructive pu lmonary disease) (CMS/HCC V24, CMS/HCC V28) DX:COPD (chronic o bstructive pulmonary disease) ([facility]) Cough DX:Cough Folate deficiency DX:Folate defi [...] Description 03/28/2025 9:00 AM EDT Office Visit [facility] [address] [place] [phone] Vitaliy De MD [address] [place] [phone] 03/29/2025 9:00 AM EDT Appointment [facility] [address] [phone] Health Maintenance Due Date Last [...] is included. WBC 4.9 4.8 - 10.8 K/[facility] LAB HEMETOLOGY METHOD 02/15/2025 12:[address] [facility] RBC 4.20(L) 4.50 - 5.50 M/[facility] LAB HEMETOLOGY METHOD 02/15/2025 12:38 PM [facility] Hemoglobin 12.6(L) 13.5 - 17.5 g/dL LAB HEMETOLOGY METHOD 02/15/2025 12:38 PM [facility] Hematocrit 39.2(L) 42.0 - 54.0 % LAB HEMETOLOGY METHOD 02/15/2025 12:38 PM [facility] MCV 92.7 79.0 - 98.0 FL LAB HEMETOLOGY METHOD 02/[facility]25 12:[facility] MCH 29.8 27.0 - 32.0 pcg LAB HEMETOLOGY METHOD 02/15/2025 12:38 PM [facility] MCHC 32.1 32.0 - 37.0 g/dL LAB HEMETOLOGY METHOD 02/15/2025 12:38 PM [facility] RDW 13.0 11.0 - 15.0 % LAB HEMETOLOGY METHOD 02/15/2025 12:38 PM [facility] Platelets 237 130 - 400 K/mcL LAB HEMETOLOGY METHOD 02/15/2025 12:38 PM [facility] MPV 10.5 7.0 - 11.0 FL LAB HEMETOLOGY METHOD 02/15/2025 12:38 PM [facility] NRBC 0.0 <1.0 % LAB HEMETOLOGY METHOD 02/15/2025 12:38 PM [facility] NRBC Absolute 0.00 <0.10 K/mcL LAB HEMETOLOGY METHOD 02/15/2025 12:38 PM [facility] Neutrophils Relative 76.3 % LAB HEMETOLOGY METHOD 02/15/2025 12:38 PM [facility] Lymphocytes Relative 11.4 % LAB HEMETOLOGY METHOD 02/15/2025 12:38 PM [facility] Monocytes Relative 7.5 % LAB HEMETOLOGY METHOD 02/15/2025 12:38 PM EDT [facility] Eosinophils Relative 2.8 % LAB HEMETOLOGY METHOD 02/15/2025 12:38 PM EDT [facility] Basophils Relative 1.2 % LAB HEMETOLOGY METHOD 02/15/2025 12:38 PM EDT [facility] Immature Granulocytes Relative 0.8 % LAB HEMETOLOGY METHOD 02/15/2025 12:38 PM EDT [facility] Neutrophils Absolute 3.75 1.50 - 7.00 K/mcL LAB HEMETOLOGY METHOD 02/15/2025 12:38 PM EDT [facility] Lymphocytes Absolute 0.56(L) 1.00 - 5.00 K/mcL LAB HEMETOLOGY METHOD 02/15/2025 12:38 PM EDT [facility] Monocytes Absolute 0.37 0.20 - 1.00 K/mcL LAB HEMETOLOGY METHOD 02/15/2025 12:38 PM EDT [facility] Eosinophils Absolute 0.14 0.00 - 0.50 K/mcL LAB HEMETOLOGY METHOD 02/15/2025 12:38 PM EDT [facility] Basophils Absolute 0.06 0.00 - 0.20 K/mcL LAB HEMETOLOGY METHOD 02/15/2025 12:38 PM EDT [facility] Immature Granulocytes Absolute 0.04(H) 0.00 - 0.03 K/mcL LAB HEMETOLOGY METHOD 02/15/2025 12:38 PM EDT [facility] Blood Venous blood specimen / Unknown Venipuncture / Unknown 02/15/2025 9:10 AM EDT 02/15/2025 12:05 PM EDT us Vitaliy De MD LAB BLOOD ORDERABLES Final Result [facility] [address] [place] [address], [place] [phone] * Thyroid stimulating hormone (02/15/2025 9:10 AM EDT) Only the most recent of3 resultswithin the time period is included. TSH 2.11 0.40 - 4.00 mcIU/mL LAB CHEMISTRY METHOD 02/15/2025 1:58 PM EDT [facility] Blood Venous blood specimen / Unknown Venipuncture / Unknown 02/15/2025 9:10 AM EDT 02/15/2025 12:05 PM EDT us Vitaliy De MD LAB BLOOD ORDERABLES Final Result Performing Organization Address [facility]/ZIP Co de Phone Number [facility] [address] [place] [address], * Magnesium (02/15/2025 9:10 AM EDT) Only the most recent of3 resultswithin the time period is included. Pathologist [facility] Magnesium 2.1 1.9 - 2.6 mg/dL LAB CHEMISTRY METHOD 02/15/2025 12:55 PM EDT [facility] Blood Venous blood specimen / Unknown Venipuncture / Unknown 02/15/2025 9:10 AM EDT 02/15/2025 12:05 PM EDT us Vitaliy De MD LAB BLOOD ORDERABLES Final Result Performing Organization Address City/[facility]/ZIP Co de Phone Number [facility] [address] [place] [address], [place] [phone] * (ABNORMAL) Comprehensive metabolic panel (02/15/2025 9:10 AM EDT) Only the most recent of3 resultswithin the time period is included. Sodium 136 133 - 145 mmol/L LAB CHEMISTRY METHOD 02/15/2025 12:58 PM EDT [facility] Potassium 4.9 3.5 - 5.5 mmol/L LAB CHEMISTRY METHOD 02/15/2025 12:58 PM [facility] Chloride 102 96 - 110 mmol/L LAB CHEMISTRY METHOD 02/15/2025 12:58 PM [facility] CO2 27 21 - 32 mmol/L LAB CHEMISTRY METHOD 02/15/2025 12:58 PM [facility] Anion Gap 7 3 - 11 LAB CHEMISTRY METHOD 02/15/2025 12:58 PM [facility] Glucose 114(H) 70 - 100 mg/dL LAB CHEMISTRY METHOD 02/15/2025 12:58 PM [facility] BUN 21 5 - 25 mg/dL LAB CHEMISTRY METHOD 02/15/2025 12:58 PM [facility] Creatinine 2.04(H) 0.70 - 1.30 mg/dL LAB CHEMISTRY METHOD 02/15/2025 12:58 PM [facility] eGFR 35(L) >=60 mL/min/1. 73m2 LAB CHEMISTRY METHOD 02/15/2025 12:58 PM [facility] Comment:Calculation based on the Chronic Kidney Disease Epidemiology Collaboration (CKD-EPI) equation refit without adjustment for race. BUN/Creatinine Ratio 10.3 LAB CHEMISTRY METHOD 02/15/2025 12:58 PM [facility] Calcium 10.0 8.5 - 10.5 mg/dL LAB CHEMISTRY METHOD 02/15/2025 12:58 PM [facility] AST (SGOT) 11 10 - 42 unit/L LAB CHEMISTRY METHOD 02/15/2025 12:58 PM [facility] ALT (SGPT) 12 10 - 60 unit/L LAB CHEMISTRY METHOD 02/15/2025 12:58 PM [facility] Alkaline Phosphatase 96 42 - 121 unit/L LAB CHEMISTRY METHOD 02/15/2025 12:58 PM EDT [facility] Total Protein 6.8 6.0 - 8.0 g/dL LAB CHEMISTRY METHOD 02/15/2025 12:58 PM EDT [facility] Albumin 4.0 3.2 - 5.0 g/dL LAB CHEMISTRY METHOD 02/15/2025 12:58 PM EDT [facility] Total Bilirubin 0.6 0.0 - 1.4 mg/dL LAB CHEMISTRY METHOD 02/15/2025 12:58 PM EDT [facility] Blood Venous blood specimen / Unknown Venipuncture / Unknown 02/15/2025 9:10 AM EDT 02/15/2025 12:05 PM EDT us Vitaliy De MD LAB BLOOD ORDERABLES Final Result [facility] [address] [place] [address], from Last 3 Months Insurance MEDICARE [facility] Advance Directives Documents on File Type Date Recorded Patient Account Services Analyst Expl anation Health Care Decision (hx) 05/08/2022 [...] currently active code status orders. Care Teams Front End Ui Developer Relationship Specialty Start Date End Date Dario Reed MD [address] [place] [address] Dr [address] [place], [place] PCP - General Internal Medicine 04/02/22
--- OUTSIDE RECORDS SUMMARY | 2025-03-21 11:00 | XMS_ITS ---
Author Organization [facility] Address [address] [place] [address] Care Team Providers Care Tableau Administrator Name Role Phone Dario Reed MD Primary Care Provider +1- [phone] Active Problems Problem Noted Date Diagnosed Date [...]
--- OUTSIDE RECORDS SUMMARY | 2025-03-21 11:00 | XMS_ITS | Encounter Summary ---
Author Organization [facility] Address [address] [place] [address] Care Team Providers Care Principal Web Developer Name Role Phone Dario Reed MD Primary Care Provider +1- [phone] Encounter Details Date Type Department Care Team Description 06/20/2022 Social Work [facility] Oncology Services [address] [place] [address] Saw Gagnon, [facility] Social History Tobacco Use Types Packs/Day Years [...] on filedocumented in this encounter Care Teams Principal Web Developer Relationship Specialty Start Date End Date Dario Reed MD [address] [place] [address] [place] [address] PCP - General Internal Medicine 06/04/22 documented as of this encounter
== END 2025-03-21 10:13 | disposition home or self-care (01) ==
LOC: HO.HMCH 09:22
PROVIDERS: PCP Internal Medicine; Visit Provider Internal Medicine
DX: I12.9 Hypertensive chronic kidney disease with stage 1 through stage 4 chronic kidney disease, or unspecified chronic kidney disease (principal); C34.90 Malignant neoplasm of unspecified part of unspecified bronchus or lung; J44.9 Chronic obstructive pulmonary disease, unspecified; N18.31 Chronic kidney disease, stage 3a; E78.00 Pure hypercholesterolemia, unspecified; D64.81 Anemia due to antineoplastic chemotherapy; T45.1X5A Adverse effect of antineoplastic and immunosuppressive drugs, initial encounter; R73.01 Impaired fasting glucose; K29.50 Unspecified chronic gastritis without bleeding; G62.9 Polyneuropathy, unspecified; E53.8 Deficiency of other specified B group vitamins; E55.9 Vitamin D deficiency, unspecified

== ENCOUNTER → 2025-03-21 09:21 | Outpatient (BNVA) | payer MEDICARE, OTHER, SELFPAY | PROVIDERS: PCP Internal Medicine; Visit Provider Internal Medicine | DX: C34.90 Malignant neoplasm of unspecified part of unspecified bronchus or lung (principal); D64.81 Anemia due to antineoplastic chemotherapy; T45.1X5D Adverse effect of antineoplastic and immunosuppressive drugs, subsequent encounter; I12.9 Hypertensive chronic kidney disease with stage 1 through stage 4 chronic kidney disease, or unspecified chronic kidney disease; N18.31 Chronic kidney disease, stage 3a; E78.00 Pure hypercholesterolemia, unspecified; J44.9 Chronic obstructive pulmonary disease, unspecified; R73.01 Impaired fasting glucose; K29.50 Unspecified chronic gastritis without bleeding; G62.9 Polyneuropathy, unspecified; E53.8 Deficiency of other specified B group vitamins; E55.9 Vitamin D deficiency, unspecified | CPT/HCPCS: 96127; 99212 ==

== ENCOUNTER 2025-06-16 10:30 | Outpatient (REF) | payer MEDICARE, OTHER, SELFPAY ==
--- NOTE | ~2025-06-16 | XR_ITS ---
EXAMINATION: XR CHEST CLINICAL INFORMATION: J11.1 - Influenza due to unidentified influenza virus with other respira... COMPARISON: March 21, [address] chest dated March 24, 2022. TECHNIQUE: PA and lateral views. FINDINGS: Pulmonary reticular pattern. Probable bronchiectasis right lung. No pleural effusion. No pneumothorax. Cardiomediastinal silhouette demonstrates. Tortuosity of the thoracic aorta with calcified plaque. Heart silhouette is not enlarged. Multilevel spondylosis, mild. XR/XR chest 2V IMPRESSION: Chronic interstitial lung disease with questionable bronchiectasis right lung. The previously identified cavitary lesion right lower lung lobe is not depicted on this exam. Electronically signed by: Chicho Barriga MD 06/16/2025 11:47 AM EST
[2025-06-16 16:33] LABS: Resp Syncy Virus RNA Qual PCR NEGATIVE (Negative); SARS COV2 PCR INHOUSE POSITIVE (Negative)
== END 2025-06-16 10:31 | disposition home or self-care (01) ==
LOC: HO.HMGCX 10:30
PROVIDERS: PCP Internal Medicine; Visit Provider Physician Assistant
DX: J11.1 Influenza due to unidentified influenza virus with other respiratory manifestations (principal); Z87.891 Personal history of nicotine dependence
CPT/HCPCS: 71046; 87637; 99212

== ENCOUNTER 2025-06-16 10:30 | Outpatient (AMB) | payer MEDICARE, OTHER, SELFPAY ==
[2025-06-16 10:45] VITALS: BP 100/80; PULSE 109; TEMP 36.7; O2SAT 97; BMI 23.5
--- NOTE | 2025-06-16 10:45 | MHC.OFFWIV ---
Intake Vital Signs 06/16/25 10:45 Height 5 ft 7 in Weight 150 lb BMI 23.5 BP 100/80 Blood Pressure Location Lt brachial Position Sitting Pulse 109 H Pulse Source Pulse Oximeter Temp 98.1 F Temp Source Oral Pulse Oximetry (%) 97 Oxygen Delivery Method Room Air Intake Visit Reasons: EP cough, congestion, fever Intake Note: pt presents chest congestion with barking productive coughing, fever s/p RLL removed to non-small cell carcinoma 04/2021 Patient Tobacco Use Status: Former Tobacco user Allergies No Known Allergies (No Known Allergies*) Allergy (Verified 06/16/25 10:55) Do you need a note to return to daycare/school/sports/work: No HPI HPI Comments History of Present Illness Details Patient presents to office with with cold symptoms Hx of lung cancer/pancreas and on immunotherapy. Last immunotherapy was approx 1 month ago. Thursday is next scheduled appointment. q28 days Onset thursday at 4am Temp 102 these last days Taking tylenol at home for fever and last dose was last night No one else sick at home + fatigue, body aches, fever/chills + congestion, cough No ear pain or ST Used DayQuil once without relief Patient denies nausea/vomiting. No diarrhea He said good appetite + flu vaccine + increased wheezing. No breathing tx at home other than albuterol prn. No updraft PFSH Medical History Recurrent non-small cell lung cancer (NSCLC) Chronic kidney disease, stage III (moderate) Primary cancer of right lower lobe of lung (~04/2022) Personal history of nicotine dependence Tubular adenoma of colon (~2011) Cough Overweight (BMI 25.0-29.9) Folate deficiency Vitamin B12 deficiency Neuropathy Chronic gastritis without bleeding Impaired fasting glucose Chronic obstructive pulmonary disease (COPD) Pure hypercholesterolemia Benign essential hypertension Surgical History History of lobectomy of lung History of bronchoscopy History of colonoscopy History of esophagogastroduodenoscopy (EGD) History of laparoscopic cholecystectomy Family History Father Hypertension Mother Lung cancer Maternal Aunt Breast cancer Family/Other Hypertension Heart disease Social History Housing: House Alcohol intake: never Patient Tobacco Use Status: Former Tobacco user e-Cigarette/Vaping Use: Never Used Second Hand Smoke Exposure: Yes service: No Current occupational status: unemployed Cognitive needs: No Hearing needs: No Vision needs: Yes Review of Systems Const Reports chills, Reports fatigue, Reports fever(s) and Denies poor appetite Eyes Denies change in vision ENT Denies otalgia, Reports nasal congestion, Denies sinus pressure and Denies sore throat Card Denies chest pain and Reports dyspnea Resp Reports chest congestion, Reports cough, Reports dyspnea and Reports wheezing GI Denies abdominal pain, Denies diarrhea and Denies vomiting Musc Reports myalgias Endo Reports fatigue Aller/Immun Reports wheezing Physical Exam Exam Exam: General: Non-toxic, NAD. Speaking full sentences. Skin: Warm dry throughout Eye: EOMI, PERRL HENT: Airway patent. Uvula midline. No pharyngeal erythema or edema. No CLIENT CARE MANAGER. moist membranes Bilateral canals clear. TM non-erythematous, non-bulging. No TM perforation or hemotympanum noted. Respiratory: + rhonchi throughout. No rales. No accessory muscle use or stridor. Cardiac: RRR. No murmur MSK: Full ROM extremities. Neurology: Alert. No aphasia or facial droop. Gait without abnormality Psych: Good mood and affect Vital Signs: Last Vital Signs Temp 98.1 F 06/16/25 10:45 Pulse 109 H 06/16/25 10:45 BP 100/80 06/16/25 10:45 Pulse Ox 97 06/16/25 10:45 Oxygen Delivery Method Room Air 06/16/25 10:45 BMI result Body Mass Index 23.5 Assessment & Plan Assessment & Plan (1) Influenza-like illness: Code(s): J11.1 - Influenza due to unidentified influenza virus with other respiratory manifestations Plan: Patient seen and evaluated. Covid/Flu/RSV ordered and sent Chest xray: I viewed as negative Most likely a viral URI Pt in no respiratory distress Discussed increase fluids, rest, and will call if xray is positive for abnormal finding Will call with swab result Tessalon for cough to pharmacy Close follow up with PCP and oncology Patient and gave verbal understanding and had no additional questions or concerns at time of discharge All questions answered Orders: Orders XR chest 2V Today J11.1 - Influenza due to unidentified influenza virus with other respiratory manifestations SARS-CoV2/FLU/RSV Today J11.1 - Influenza due to unidentified influenza virus with other respiratory manifestations Medications: New benzonatate 100 mg PO BID-TID PRN 15 caps 0RF cough Coding Level of Care Code Est Pt Level 3 (05337) Diagnoses Influenza-like illness J11.1
--- OUTSIDE RECORDS SUMMARY | 2025-06-16 12:06 | XMS_ITS ---
Author Organization [facility] Address [address] [place] [phone] Phone Care Team Providers Care Visitor Services Specialist Name Role Phone Dario Reed MD Primary Care Provider Active Problems Problem Noted Date Diagnosed Date Pancreatic mass 04/27/2025 Assessment & Plan (04/27/2025 9:44 AM EDT): Patient's recent CT scan shows a new 19 x 13 x 13 mm well-defined, solid, soft tissue mass within the neck of the pancreas versus peripancreatic lymphadenopathy. Patient has already discussed this with Dr. De who has ordered a PET CT scan. 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 Stinson is a 69-year-old male who had a robotic right lower lobectomy in April 2022 for stage IIb pleomorphic non-small cell carcinoma. He received adjuvant chemotherapy and then was diagnosed with progressive disease within his mediastinal lymph nodes and right supraclavicular region in June 2024 which was treated with chemoradiation followed by maintenance durvalumab. The patient's most recent CT chest/abdomen/pelvis done March 2025 shows a new juxtapleural reticular opacity in the medial aspect of the right lung which is likely related to radiation sequela. He has no new or worsening pulmonary nodule or thoracic adenopathy. His multiple previous enlarged mediastinal lymph nodes including a right paratracheal, right supraclavicular, and superior mediastinal lymph node are no longer enlarged. Dr. De is ordering a PET/CT to follow-up on a new pancreatic mass versus peripancreatic lymphadenopathy. Will plan to follow along and see what becomes of that in terms of timing of his next surveillance imaging for his lung cancer. I will place the patient on a recall list in September [address] chest, however will follow-up on oncology notes at that time to determine appropriate follow- up. Assessment & Plan (07/28/2024 9:59 AM EST): [...] 2 weeks. All questions were answered. Current Treatment and Therapy Plans Durvalumab ( Every 28 Days )* Plan Start Date:10/31/2024 Plan Provider:Vitaliy De MD Linked Problems Non-small cell cancer of rig ht lung (CMS/HCC V24, CMS/HCC V28)Hypothyroidism (acquired) Treatment Medications Current Day (Day 1 , Cycle 9 - Planned for 06/21/2025) Next Day (Day 1, Cycle 10 - Planned for 07/19/2025) durvalumab (IMFINZI)durvalumab (IMFINZI) chemo IVPB 250 mL durvalumab (IMFINZI) 1,500 mg in sodium chloride 280 mL chemo IVPB durvalumab (IMFINZI) 1,500 mg in sodium chloride 280 mL chemo IVPB HYDRATION AND ELECTROLYTES* Plan Start Date:09/09/2024 Plan Provider:Vitaliy De MD Linked Problems Non-small cell cancer of rig ht lung (CMS/HCC V24, CMS/HCC V28) Treatment Medications No medications scheduled. Past Treatment and Therapy Plans Oncology Treatment Plan Name Start Date [...] De MD 1 of 1 cycle started Current Radiation Episodes * Radiation Therapy: Right LungOverview* First Treatment Date Latest Treatment Date Treatment Site Technique Goal Episode Provider 08/25/2024 10/07/2024 Right Lung Curative Laura Robins MD * Linked Problems Treatment Courses* Course 1 08/25/2024 - 10/07/2024 Treatment Sites Treatment Period Fraction Dose Fractions Total Dose R hilum/med/sclav 08/25/2024 - 10/07/2024 200 / 200 cGy 6,000 / 6,000 cGy Resolved Problems Problem Noted Date Diagnosed Date Resolved Date Mediastinal lymphadenopathy 06/06/2024 04/27/2025 Malignant neoplasm of unspec ified part of right bronchus or lung 04/10/2023 08/03/2024
--- OUTSIDE RECORDS SUMMARY | 2025-06-16 12:06 | XMS_ITS | Encounter Summary ---
Author Organization [facility] Address [address] [place] [address] Care Team Providers Care Poultry Hatchery Laborer Name Role Phone Dario Reed MD Primary Care Provider [phone] Encounter Details Date Type Department Care Team (Late st Contact Info) Description 06/15/2025 Telephone [facility] Hematology Oncology [address] [place] [address] Vitaliy De MD [address] [place] [address] Social History Tobacco Use Types Packs/Day Years [...] on file documented as of this encounter Progress Notes * Vivi Dennis DO - 06/16/2025 10:[address] Alexandrea kerns. * Janny Michel MA - 06/16/2025 10:02 AM EST DARLINE Kolb just wanted to let you know that she is going to take her (pt) to the walk in center today. * Fiorella Kaur RN - 06/15/2025 1:09 PM EST I called Kennedi and made her aware of Dr. Baltazar's recommendation. Kennedi reports patient's fever broke and his temp is now 97. She will talk to the patient and let him know Dr. De recommended Urgent Care eval. * Vitaliy De MD - 06/15/2025 1:06 PM EST Can do urgent care * Fiorella Kaur RN - 06/15/2025 11:14 AM EST I called patients Kennedi back to further discuss. reports patient woke up yesterday not feeling well. Symptoms include: Barking junky cough Fevers of 102. (down to 101 with Tylenol) Increased fatigue. Nausea yesterday. Denies vomiting. Good appetite (eating and drinking). Dr. De - please review and advise. Urgent care? ER eval? * Ammy Antoine - 06/15/2025 10:36 AM EST Patient's calling to report patient has a really bad cold and cough, with steady fever since yesterday. Please advise and call her at [phone] documented in this encounter Plan of Treatment Upcoming Encounters Date Type Department Care Team (Late st Contact Info) Description 06/20/2025 10:15 AM EST Office Visit [facility] Hematology Oncology [address] [place] [phone] Vitaliy De MD [address] [place] [phone] 06/20/2025 10:30 AM EST Appointment [facility] [address] [phone] Vitaliy De MD [address] [place] [address] documented as of this encounter Visit Diagnoses Not on filedocumented in this encounter Care Teams Poultry Hatchery Laborer Relationship Specialty Start Date End Date Dario Reed MD [address] [place] [address] Dr Demetria [address] [place] [address] [place] PCP - General Internal Medicine 04/02/22 documented as of this encounter
--- OUTSIDE RECORDS SUMMARY | 2025-06-16 12:06 | XMS_ITS | Encounter Summary ---
Author Organization [facility] Prior to 11/26/[address] [place] [address] Care Team Providers Care Appliance Mechanic Name Role Phone Dario Reed MD Primary Care Provider [phone]- [phone] Encounter Details Date Type Department Care Team Description 06/20/2022 Social Work [facility] Oncology Services [address] [place] [address] Saw Gagnon, [facility] Social History Tobacco Use Types Packs/Day Years [...] on filedocumented in this encounter Care Teams Appliance Mechanic Relationship Specialty Start Date End Date Dario Reed MD [address] [place] [address] [place] [address] PCP - General Internal Medicine 06/04/22 documented as of this encounter
--- OUTSIDE RECORDS SUMMARY | 2025-06-16 12:06 | XMS_ITS ---
Author Organization [facility] Prior to 11/26/[address] [place] [id number] Care Team Providers [employer] Head Name Role Phone Dario Reed MD Primary Care Provider [phone]- [phone] Active Problems Problem Noted Date Diagnosed Date [...] treatments are documented for this patient in [facility]. Treatments may have been administered in another system.
--- OUTSIDE RECORDS SUMMARY | 2025-06-16 12:06 | XMS_ITS | Clinical Summary ---
Author Organization [facility] Prior to 11/26/[address] [place] [id number] Care Team Providers Care Motor Checker Name Role Phone Dario Reed MD Primary Care Provider +1- [phone] Allergies No known active allergies Medications Medication [...] total) by mouth daily. 0 Active Umeclidinium [place] 62.5 MCG/ACT AEPB Inhale into the lungs. [...] age to complete this topic Care Teams Motor Checker Relationship Specialty Start Date End Date Dario Reed MD [address] [place] [address] [place] [address] PCP - General Internal Medicine 06/04/22
--- OUTSIDE RECORDS SUMMARY | 2025-06-16 12:06 | XMS_ITS | Clinical Summary ---
Author Organization [facility] Address [address] [place] [phone] Phone Care Team Providers Care Cvicu Rn Name Role Phone Dario Reed MD Primary Care Provider [phone] Allergies No known active allergies Medications albuterol [...] or vomiting. 60 tablet 3 5 Active Trelegy Ellipta 100-62.5-25 mcg inhaler 05/23/202 5 Active magnesium oxide (MAG-OX) 400 mg (241.3 elemental magnesium) tablet Take 1 tablet (400 mg total) by mouth 2 (two) times a day. 60 tablet 5 5 Active oxyCODONE-aceta minophen (PERCOCET) 5-325 mg [...] pain Partial fill allowed 120 tablet 5 05/24/20 25 Discontinu ed(Reorder ) oxyCODONE-aceta minophen (PERCOCET) 5-325 mg per tabletIndicatio ns:Non-small cell cancer of right lung (CMS/HCC V24, CMS/HCC V28) Take 1-2 tabs every 4 hrs prn pain Partial fill allowed 120 tablet 5 06/12/20 25 Discontinu ed(Reorder ) Active Problems Problem [...] of right bronchus or lung 04/10/2023 08/03/2024 Encounters Date Type Department Care Team Description 06/15/2025 Telephone [facility] Hematology Oncology [address] [place] [phone] Vitaliy De MD 05/24/2025 9:44 AM EST - 05/24/2025 11:59 PM EST Hospital Encounter [facility] Infusion Center [address] [place] [phone] Vitaliy De MD Non-small cell cancer of right lung (CMS/HCC V24, CMS/HCC V28) (Primary Dx); Hypothyroidism (acquired); Pancreatic mass; Abnormal results of function studies of other organs and systems Discharge Disposition: Home or Self Care 05/24/2025 9:30 AM EST Office Visit [facility] Hematology Oncology [address] [place] [phone] Vitaliy De MD Non-small cell cancer of right lung (CMS/HCC V24, CMS/HCC V28) (Primary Dx) 05/24/2025 Telephone [facility] Hematology Oncology [address] [place] [phone] Emily Barrera PR 05/23/2025 9:10 AM EST Lab Draw Station - [address] [phone] Non-small cell cancer of right lung (CMS/HCC V24, CMS/HCC V28); Hypothyroidism (acquired) 05/09/2025 11:17 AM EST - 05/09/2025 11:59 PM EST Hospital Encounter [facility] PET Scan [address] [place] [phone] Non-small cell cancer of right lung (CMS/HCC V24, CMS/HCC V28); Abnormal findings on diagnostic imaging of other abdominal regions, including retroperitoneum Discharge Disposition: Home or Self Care 04/27/2025 9:00 AM EDT Office Visit Thoracic Surgery - [place] [address] [phone] Sue Flanagan PA Non-small cell cancer of right lung (CMS/HCC V24, [facility]/HCC V28) (Primary Dx); Intercostal neuralgia; Pancreatic mass 04/26/2025 9:53 AM EDT - 04/26/2025 11:59 PM EDT Hospital Encounter [facility] Infusion [facility] [address] [phone] Vitaliy De MD Non-small cell cancer of right lung (CMS/HCC V24, CMS/HCC V28) (Primary Dx); Hypothyroidism (acquired) Discharge Disposition: Home or Self Care 04/26/2025 9:30 AM EDT Office Visit [facility] Hematology Oncology [address] [place] [phone] Vitaliy De MD Non-small cell cancer of right lung (CMS/HCC V24, CMS/HCC V28) (Primary Dx); Abnormal findings on diagnostic imaging of other abdominal regions, including retroperitoneum 04/17/2025 10:03 AM EDT - 04/17/2025 11:59 PM EDT Hospital Encounter [facility] CT Scan [address] [place] [phone] Non-small cell cancer of right lung (CMS/HCC V24, CMS/HCC V28) Discharge Disposition: Home or Self Care 03/29/2025 8:55 AM EDT - 03/29/2025 11:59 PM EDT Hospital Encounter [facility] Infusion [facility] [address] [place] [phone] Vitaliy De MD Non-small cell cancer of right lung (CMS/HCC V24, CMS/HCC V28) (Primary Dx); Hypothyroidism (acquired) Discharge Disposition: Home or Self Care 03/29/2025 Social Work [facility] [address] [place] [phone] Saw Gagnon MANAGER OF PROCUREMENT 03/28/2025 9:00 AM EDT Office Visit [facility] Hematology Oncology [address] [place] [phone] Vitaliy De MD Non-small cell cancer of right lung (CMS/HCC V24, CMS/HCC V28) (Primary Dx) 03/28/2025 Telephone [facility] Hematology Oncology [address] [place] [phone] Emily Barrera PR 03/27/2025 Telephone [facility] Hematology Oncology [address] [place] [phone] Vitaliy De MD from Last 3 Months Surgical History Surgery Date Site/Laterality Comments OTHER SURGICAL HISTORY 05/21/2022 Right PROCEDURE: LA THORACOSCOPY W/LOBECTOMY SINGLE LOBE; COMMENT: RLL OTHER SURGICAL HISTORY PROCEDURE: COLONOSCOPY, SURGICAL ESOPHAGOGASTRODUODENOSCOPY PROCEDURE: LA ESOPHAGOGASTRODUODENOSCOPY TRANSORAL DIAGNOSTIC CHOLECYSTECTOMY PROCEDURE: LAPAROSCOPY, CHOLECYSTECTOMY Medical History Medical History Date Comments Benign essential hypertension DX :Benign essential hypertension Chronic gastritis without bleeding DX:Chronic gastritis without bleeding COPD (chronic obstructive pu lmonary disease) ([facility]/HCC V24, [facility]/HCC V28) DX:COPD (chronic o bstructive pulmonary disease) ([facility]) Cough DX:Cough Folate deficiency DX:Folate defi ciency [...] B12 deficiency Pleomorphic carcinoma (CMS/H CC V24, [facility]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) Cavitating [...] Sign Reading Time Taken Comments Blood Pressure 91/59 05/24/2025 9:47 AM EST Pulse 65 05/24/2025 9:47 AM EST Temperature 36.9 C (98.4 F) 05/24/2025 9:47 AM EST Respiratory Rate 16 04/27/2025 8:38 AM EDT Oxygen Saturation 98% 05/24/2025 9:47 AM EST Inhaled Oxygen Concentration - - Weight 69.7 kg (153 lb 9.6 oz) 05/24/2025 9:47 A M EST Height 170.2 cm (5' 7 ) 04/27/2025 8:38 AM EDT Body Mass Index 24.06 04/27/2025 8:38 AM EDT Plan of Treatment Upcoming Encounters Date Type Department Care Team (Late st Contact Info) Description 06/20/2025 10:15 AM EST Office Visit [facility] Hematology Oncology [address] [place] [phone] Vitaliy De MD [address] [place] [phone] 06/20/2025 10:30 AM EST Appointment [facility] Infusion [facility] [address] [place] [phone] Vitaliy De MD [address] [place] [phone] Health Maintenance Due Date Last Done Comments Colorectal Cancer Screening: Colonoscopy 1955 Drug Screen 1957 Naloxone Order 1957 Opioid Substance Agreement 1957 COVID-19 Vaccine (#1) 1962 DTaP,Tdap,and Td Vaccines (1 - Tdap) 1976 Pneumococcal Vaccine: 50+ Years (1 of 2 - PCV) 1976 Zoster Vaccines (1 of 2) 1976 RSV Immunization Adult Patients (1 - Risk 50-74 years 1-dose series) 11/21/2007 Abdominal Aortic Aneurysm (AAA) Screen 06/08/2022 Cholesterol Screening (Lipid Panel) 06/08/2022 Hepatitis C Screening 06/08/2022 Medicare Annual Wellness Visit 06/08/2022 Social Influencers of Health Screening 06/08/2022 Depression Screening 06/29/2024 Influenza Vaccine (#1) 2025 Pain Assessment 08/03/2025 08/03/2024 Hypertension/CHF/CAD Annual BMP Blood Test 05/23/2026 05/23/2025, 04/25/2025, 02/15/2025, Additional history exists Falls Risk Assessment 05/24/2026 05/24/2025 HIB Vaccines Aged Out No longer eligi [...] Procedure Name Priority Date/Time Associated Diagnosis Comments PROSTATE SPECIFIC ANTIGEN DIAGNOSTIC Routine 05/24/2025 10:03 AM EST Non-small cell cancer of right lung (CMS/HCC V24, CMS/HCC V28) Pancreatic mass Abnormal results of function studies of other organs and systems CBC WITH AUTO DIFFERENTIAL Routine 05/23/2025 9:10 AM EST Non-small cell cancer of right lung (CMS/HCC V24, CMS/HCC V28) THYROID STIMULATING HORMONE Routine 05/23/2025 9:10 AM EST Hypothyroidism (acquired) MAGNESIUM Routine 05/23/2025 9:10 AM EST Non-small cell cancer of right lung (CMS/HCC V24, CMS/HCC V28) COMPREHENSIVE METABOLIC PANEL Routine 05/23/2025 9:10 AM EST Non-small cell cancer of right lung (CMS/HCC V24, CMS/HCC V28) CBC AND DIFFERENTIAL Routine 05/23/2025 9:10 AM EST Non-small cell cancer of right lung (CMS/HCC V24, CMS/HCC V28) PET CT SKULL TO MID THIGH SUBSEQUENT Routine 05/09/2025 1:29 PM EST Non-small cell cancer of right lung (CMS/HCC V24, CMS/HCC V28) Abnormal findings on diagnostic imaging of other abdominal regions, including retroperitoneum CBC WITH AUTO DIFFERENTIAL Routine 04/25/2025 9:00 AM EDT Non-small cell cancer of right lung (CMS/HCC V24, CMS/HCC V28) THYROID STIMULATING HORMONE Routine 04/25/2025 9:00 AM EDT Hypothyroidism (acquired) MAGNESIUM Routine 04/25/2025 9:00 AM EDT Non-small cell cancer of right lung (CMS/HCC V24, CMS/HCC V28) COMPREHENSIVE METABOLIC PANEL Routine 04/25/2025 9:00 AM EDT Non-small cell cancer of right lung (CMS/HCC V24, CMS/HCC V28) CBC AND DIFFERENTIAL Routine 04/25/2025 9:00 AM EDT Non-small cell cancer of right lung (CMS/HCC V24, CMS/HCC V28) CT CHEST/ABDOMEN/PELVIS WO CONTRAST Routine 04/17/2025 11:13 AM EDT Non-small cell cancer of right lung (CMS/HCC V24, CMS/HCC V28) from Last 3 Months Results * (ABNORMAL) Prostate specific antigen diagnostic (05/24/2025 10:03 AM EST) PSA 268.94(H) 0.00 - 4.00 ng/mL 05/24/2025 11:[address] [facility] Comment:Results verified by repeat testing Blood Venous blood specimen / Unknown Venipuncture / Unknown 05/24/2025 10:03 AM EST 05/24/2025 10:19 AM EST Narrative [facility] - 05/24/2025 11:19 AM EST The Siemens [employer] IM Chemiluminescent Immunoassay is used. Results obtained with different assay methods or kits cannot be used interchangeably. Results cannot be interpreted as absolute evidence of the presence or absence of malignant disease. us Vitaliy De MD LAB BLOOD ORDERABLES Final Result [facility] [address] [place] [address], * (ABNORMAL) CBC auto differential (05/23/2025 9:10 AM EST) Only the most recent of2 resultswithin the time period is included. WBC 4.7(L) 4.8 - 10.8 K/mcL LAB HEMETOLOGY METHOD 05/23/2025 11:55 AM [facility] RBC 4.00(L) 4.50 - 5.50 M/mcL LAB HEMETOLOGY METHOD 05/23/2025 11:55 AM [facility] Hemoglobin 12.3(L) 13.5 - 17.5 g/dL LAB HEMETOLOGY METHOD 05/23/2025 11:55 AM [facility] Hematocrit 37.5(L) 42.0 - 54.0 % LAB HEMETOLOGY METHOD 05/23/2025 11:55 AM [facility] MCV 93.5 79.0 - 98.0 FL LAB HEMETOLOGY METHOD 05/23/2025 11:55 AM [facility] MCH 30.7 27.0 - 32.0 pcg LAB HEMETOLOGY METHOD 05/23/2025 11:55 AM [facility] MCHC 32.8 32.0 - 37.0 g/dL LAB HEMETOLOGY METHOD 05/23/2025 11:55 AM [facility] RDW 13.5 11.0 - 15.0 % LAB HEMETOLOGY METHOD 05/23/2025 11:55 AM [facility] Platelets 195 130 - 400 K/mcL LAB HEMETOLOGY METHOD 05/23/2025 11:55 AM [facility] MPV 10.8 7.0 - 11.0 FL LAB HEMETOLOGY METHOD 05/23/2025 11:55 AM [facility] NRBC 0.0 <1.0 % LAB HEMETOLOGY METHOD 05/23/2025 11:55 AM [facility] NRBC Absolute 0.00 <0.10 K/mcL LAB HEMETOLOGY METHOD 05/23/2025 11:55 AM [facility] Neutrophils Relative 76.7 % LAB HEMETOLOGY METHOD 05/23/2025 11:55 AM [facility] Lymphocytes Relative 12.6 % LAB HEMETOLOGY METHOD 05/23/2025 11:55 AM [facility] Monocytes Relative 5.6 % LAB HEMETOLOGY METHOD 05/23/2025 11:55 AM [facility] Eosinophils Relative 3.4 % LAB HEMETOLOGY METHOD 05/23/2025 11:55 AM [facility] Basophils Relative 1.3 % LAB HEMETOLOGY METHOD 05/23/2025 11:55 AM [facility] Immature Granulocytes Relative 0.4 % LAB HEMETOLOGY METHOD 05/23/2025 11:55 AM [facility] Neutrophils Absolute 3.59 1.50 - 7.00 K/mcL LAB HEMETOLOGY METHOD 05/23/2025 11:55 AM [facility] Lymphocytes Absolute 0.59(L) 1.00 - 5.00 K/mcL LAB HEMETOLOGY METHOD 05/23/2025 11:55 AM [facility] Monocytes Absolute 0.26 0.20 - 1.00 K/mcL LAB HEMETOLOGY METHOD 05/23/2025 11:55 AM EST [facility] Eosinophils Absolute 0.16 0.00 - 0.50 K/mcL LAB HEMETOLOGY METHOD 05/23/2025 11:55 AM EST [facility] Basophils Absolute 0.06 0.00 - 0.20 K/mcL LAB HEMETOLOGY METHOD 05/23/2025 11:55 AM EST [facility] Immature Granulocytes Absolute 0.02 0.00 - 0.03 K/[facility] HEMETOLOGY METHOD 05/23/2025 11:55 AM [facility] Blood Venous blood specimen / Unknown Venipuncture / Unknown 05/23/2025 9:10 AM EST 05/23/2025 11:39 AM EST Vitaliy De MD LAB BLOOD ORDERABLES Final Result Performing Organization Address City/[facility]/ZIP Co de Phone Number [facility] [address] [place] [address], [place] [phone] * Thyroid stimulating hormone (05/23/2025 9:10 AM EST) Only the most recent of2 resultswithin the time period is included. TSH 1.04 0.40 - 4.00 mcIU/mL 05/23/2025 12:07 PM [facility] Blood Venous blood specimen / Unknown Venipuncture / Unknown 05/23/2025 9:10 AM EST 05/23/2025 11:39 AM EST us Vitaliy De MD LAB BLOOD ORDERABLES Final Result [facility] [address] [place] [address], [place] [phone] * (ABNORMAL) Magnesium (05/23/2025 9:10 AM EST) Only the most recent of2 resultswithin the time period is included. Magnesium 1.6(L) 1.9 - 2.6 mg/dL 05/23/2025 12:06 PM [facility] Blood Venous blood specimen / Unknown Venipuncture / Unknown 05/23/2025 9:10 AM EST 05/23/2025 11:39 AM EST us Vitaliy De MD LAB BLOOD ORDERABLES Final Result [facility] [address] [place] [address], [place] [phone] * (ABNORMAL) Comprehensive metabolic panel (05/23/2025 9:10 AM EST) Only the most recent of2 resultswithin the time period is included. Sodium 139 133 - 145 mmol/L 05/23/2025 12:06 PM [facility] Potassium 4.8 3.5 - 5.5 mmol/L 05/23/2025 12:06 PM [facility] Chloride 104 96 - 110 mmol/L 05/23/2025 12:06 PM [facility] CO2 28 21 - 32 mmol/L 05/23/2025 12:06 PM [facility] Anion Gap 7 3 - 11 05/23/2025 12:06 PM [facility] Glucose 138(H) 70 - 100 mg/dL 05/23/2025 12:06 PM [facility] BUN 25 5 - 25 mg/dL 05/23/2025 12:06 PM [facility] Creatinine 1.90(H) 0.70 - 1.30 mg/dL 05/23/2025 12:06 PM [facility] eGFR 38(L) >=60 mL/min/1. 73m2 05/23/2025 12:06 PM [facility] Comment:Calculation based on the Chronic Kidney Disease Epidemiology Collaboration (CKD-EPI) equation refit without adjustment for race. BUN/Creatinine Ratio 13.2 05/23/2025 12:06 PM [facility] Calcium 8.8 8.5 - 10.5 mg/dL 05/23/2025 12:06 PM [facility] AST (SGOT) 18 10 - 42 unit/L 05/23/2025 12:06 PM [facility] ALT (SGPT) 9(L) 10 - 60 unit/L 05/23/2025 12:06 PM [facility] Alkaline Phosphatase 105 42 - 121 unit/L 05/23/2025 12:06 PM [facility] Total Protein 6.2 6.0 - 8.0 g/dL 05/23/2025 12:06 PM [facility] Albumin 3.7 3.2 - 5.0 g/dL 05/23/2025 12:06 PM [facility] Total Bilirubin 0.3 0.0 - 1.4 mg/dL 05/23/2025 12:06 PM [facility] Blood Venous blood specimen / Unknown Venipuncture / Unknown 05/23/2025 9:10 AM EST 05/23/2025 11:39 AM EST Vitaliy De MD LAB BLOOD ORDERABLES Final Result [facility] [address] [place] [address], * PET CT Skull to Mid Thigh Subsequent (05/09/2025 1:29 PM EST) Anatomical Region Laterality Modality Body Radiographic Georgette ging 05/17/2025 4:14 PM EST Impressions 05/17/2025 5:12 PM EST Metabolically active new pancreatic lesion when compared to prior PET/CT may represent metastatic disease versus primary pancreatic neoplasm. Resolved metabolically active thoracic nodes. Right perihilar activity likely secondary to post treatment changes. Interval increased metabolic activity within the right side of the prostate gland with new avid pelvic nodes. Recommend correlation with PSA as well as digital rectal examination to evaluate for possible FDG avid prostate carcinoma. -------- FINAL REPORT -------- Dictated By: Edyta García Dictated Date: 05/17/2025 16:14 ET Assigned Physician: Edyta García Reviewed and Electronically Signed By: Edyta García Signed Date: 05/17/2025 17:12 ET Workstation ID: [id number] Transcribed By: Self Edit Transcribed Date: 05/17/2025 16:14 ET Narrative 05/17/2025 5:12 PM EST INDICATION: Non-small cell lung carcinoma with new pancreatic mass, subsequent treatment strategy Prior relevant studies: PET/CT from May 25, 2024 Radiopharmaceutical: 13.6 mCi of F-18 FDG IV. Blood glucose: 101 mg/dl. PROCEDURE: Routine body FDG PET-CT imaging was performed from the skull base to the mid thighs and reconstructed in axial, coronal, and sagittal planes at the computer workstation with fused data from both the PET imaging study and attenuation correction CT. The CT portion of the examination was done strictly for attenuation correction and is not a true diagnostic CT examination. CTDI: 4.20 mGy FINDINGS: HEAD AND NECK: No abnormal FDG activity. THORAX: Right perihilar activity with SUV max of 4 is nonspecific with associated increased parenchymal attenuation without discrete nodule may represent post treatment changes. Resolved FDG avid paratracheal nodes. ABDOMEN/PELVIS: Interval development of FDG avid avid nodule within the midline of the pancreas with SUV max of 10. Further increase in FDG avid prostate activity with SUV max of 8.8, previously 5. Interval development of FDG avid bilateral internal iliac nodes with SUV max of 11.6 on the right and 4.2 on the left. MUSCULOSKELETAL: No abnormal FDG activity. Procedure Note Edyta García MD - 05/17/2025 INDICATION: Non-small cell lung carcinoma with new pancreatic mass,subsequent treatment strategy Prior relevant studies: PET/CT from May 25, 2024 Radiopharmaceutical: 13.6 mCi of F-18 FDG IV. Blood glucose: 101 mg/dl. PROCEDURE: Routine body FDG PET-CT imaging was performed from the skullbase to the mid thighs and reconstructed in axial, coronal, and sagittalplanes at the computer workstation with fused data from both the PETimaging study and attenuation correction CT. The CT portion of theexamination was done strictly for attenuation correction and is not a truediagnostic CT examination. CTDI: 4.20 mGy FINDINGS: HEAD AND NECK: No abnormal FDG activity. THORAX: Right perihilar activity with SUV max of 4 is nonspecific withassociated increased parenchymal attenuation without discrete nodule mayrepresent post treatment changes. Resolved FDG avid paratracheal nodes. ABDOMEN/PELVIS: Interval development of FDG avid avid nodule within themidline of the pancreas with SUV max of 10. Further increase in FDG avid prostate activity with SUV max of 8.8,previously 5. Interval development of FDG avid bilateral internal iliac nodes with SUVmax of 11.6 on the right and 4.2 on the left. MUSCULOSKELETAL: No abnormal FDG activity. IMPRESSION: Metabolically active new pancreatic lesion when compared to prior PET/CTmay represent metastatic disease versus primary pancreatic neoplasm. Resolved metabolically active thoracic nodes. Right perihilar activitylikely secondary to post treatment changes. Interval increased metabolic activity within the right side of theprostate gland with new avid pelvic nodes. Recommend correlation with PSAas well as digital rectal examination to evaluate for possible FDG avidprostate carcinoma. -------- FINAL REPORT -------- Dictated By: Edyta García Dictated Date: 05/17/2025 16:14 ET Assigned Physician: Edyta García Reviewed and Electronically Signed By: Edyta García Signed Date: 05/17/2025 17:12 ET Workstation ID: [id number] Transcribed By: Self Edit Transcribed Date: 05/17/2025 16:14 ET us Vitaliy De MD IM NM PROCEDURES Final Res ult * CT Chest/Abdomen/Pelvis wo Contrast (04/17/2025 11:13 AM EDT) Anatomical Region Laterality Modality Body Computed Tomogra phy 04/18/2025 1:34 PM EDT Impressions 04/18/2025 2:01 PM EDT Impression: 1. New juxtapleural reticular opacity in the medial aspect of the right lung, most likely representing radiation treatment changes in this clinical setting. 2. Resolved mediastinal lymphadenopathy noted on the previous study. 3. No suspicious pulmonary nodule. 4. New 19 x 13 x 13 mm soft tissue mass within the neck of the pancreas versus peripancreatic lymphadenopathy. Consider PET CT for further assessment. Telerad RADHA ([id number]) -------- FINAL REPORT -------- Dictated By: Olamide Reza Dictated Date: 04/18/2025 13:34 ET Assigned Physician: Olamide Reza Reviewed and Electronically Signed By: Olamide Reza Signed Date: 04/18/2025 14:01 ET Workstation ID: [id number] Transcribed By: Self Edit Transcribed Date: 04/18/2025 13:34 ET Narrative 04/18/2025 2:01 PM EDT History: Restaging lung carcinoma. Status post right lower lobectomy and mediastinal lymphadenectomy in 2021 for stage IIB T3 N0 non-small cell carcinoma. The patient has received chemotherapy and radiation treatment, with radiation completed in September,. Comparison: 10/21/24, PET/CT 05/25/24 Technique: Helical volumetric imaging of the chest, abdomen and pelvis was performed without intravenous or oral contrast. DLP: 647.60 mGy/cm [employer], [employer] Iterative reconstruction technique Findings: Chest: Right lower lobectomy sequela are again seen. The trachea and remaining central bronchial tree are patent. Centrilobular and paraseptal emphysema are again noted. There is new juxtapleural reticular opacity in the medial aspect of the right lung, abutting the mediastinum and hilum, oriented in a straight line from anterior to posterior, consistent with radiation treatment sequela in this setting. No suspicious developing pulmonary nodule is seen. Minimal smooth pleural thickening is seen at the base of the right hemithorax, accompanied by a trace pleural effusion, unchanged. The heart remains normal in size. The enlarged distal right paratracheal lymph node noted on the previous study has decreased in size from 14 mm to 4 mm. A 10 mm right supraclavicular noted previously is no longer seen with certainty. A 9 mm superior mediastinal node is no longer identified. Abdomen/pelvis: The liver remains normal in size and configuration. No masses are identified. A cluster of partially calcified nodules abuts the posterior aspect of the liver, unchanged. Cholecystectomy clips are present. No evidence of biliary obstruction is seen. The unenhanced spleen and adrenal glands are unremarkable. The pancreas remains largely fatty replaced. There is a new well-defined solid, soft tissue mass within the neck of the pancreas (image 120 series 3), measuring approximately 19 x 13 x 13 mm. There is no dilatation of the pancreatic duct. The kidneys are small, with diffuse parenchymal thinning. A 6 mm nonobstructing calculus is seen in the lower pole of the left kidney, unchanged. No ureteral calculus is identified and there is no hydronephrosis. A stable 2.6 cm circumscribed round hypoattenuating mass of the lower pole of the left kidney most likely represents a cyst. Additional smaller masses at the lower pole of the left kidney are also without significant change, indeterminate by noncontrast CT analysis. No ascites is identified. No developing periaortic or pelvic retroperitoneal lymphadenopathy is seen. The prostate is enlarged. The bladder is poorly distended, limiting assessment of its wall. No evidence of bowel obstruction is seen. No abnormal perienteric or pericolonic fat stranding is seen. There is a small fat-containing hiatal hernia. Musculoskeletal: A chronic compression fracture of the superior endplate of T12 is unchanged, without significant retropulsion. No developing osseous destructive lesion is seen. Procedure Note Olamide Reza MD - 04/18/2025 History: Restaging lung carcinoma. Status post right lower lobectomy andmediastinal lymphadenectomy in 2021 for stage IIB T3 N0 non-small cellcarcinoma. The patient has received chemotherapy and radiation treatment,with radiation completed in September,. Comparison: 10/21/24, PET/CT 05/25/24 Technique: Helical volumetric imaging of the chest, abdomen and pelvis wasperformed without intravenous or oral contrast. DLP: 647.60 mGy/cm [employer] Iterative reconstruction technique Findings: Chest: Right lower lobectomy sequela are again seen. The trachea and remainingcentral bronchial tree are patent. Centrilobular and paraseptal emphysemaare again noted. There is new juxtapleural reticular opacity in the medial aspect of theright lung, abutting the mediastinum and hilum, oriented in a straightline from anterior to posterior, consistent with radiation treatmentsequela in this setting. No suspicious developing pulmonary nodule is seen. Minimal smooth pleural thickening is seen at the base of the righthemithorax, accompanied by a trace pleural effusion, unchanged. The heart remains normal in size. The enlarged distal right paratracheallymph node noted on the previous study has decreased in size from 14 mm to4 mm. A 10 mm right supraclavicular noted previously is no longer seenwith certainty. A 9 mm superior mediastinal node is no longeridentified. Abdomen/pelvis: The liver remains normal in size and configuration. No masses areidentified. A cluster of partially calcified nodules abuts the posterioraspect of the liver, unchanged. Cholecystectomy clips are present. Noevidence of biliary obstruction is seen. The unenhanced spleen and adrenal glands are unremarkable. The pancreas remains largely fatty replaced. There is a new well-definedsolid, soft tissue mass within the neck of the pancreas (image 120 series3), measuring approximately 19 x 13 x 13 mm. There is no dilatation of thepancreatic duct. The kidneys are small, with diffuse parenchymal thinning. A 6 mmnonobstructing calculus is seen in the lower pole of the left kidney,unchanged. No ureteral calculus is identified and there is nohydronephrosis. A stable 2.6 cm circumscribed round hypoattenuating massof the lower pole of the left kidney most likely represents a cyst.Additional smaller masses at the lower pole of the left kidney are alsowithout significant change, indeterminate by noncontrast CT analysis. No ascites is identified. No developing periaortic or pelvicretroperitoneal lymphadenopathy is seen. The prostate is enlarged. Thebladder is poorly distended, limiting assessment of its wall. No evidence of bowel obstruction is seen. No abnormal perienteric orpericolonic fat stranding is seen. There is a small fat-containing hiatalhernia. Musculoskeletal: A chronic compression fracture of the superior endplate of T12 isunchanged, without significant retropulsion. No developing osseousdestructive lesion is seen. IMPRESSION: Impression: 1. New juxtapleural reticular opacity in the medial aspect of the rightlung, most likely representing radiation treatment changes in thisclinical setting. 2. Resolved mediastinal lymphadenopathy noted on the previous study. 3. No suspicious pulmonary nodule. 4. New 19 x 13 x 13 mm soft tissue mass within the neck of the pancreasversus peripancreatic lymphadenopathy. Consider PET CT for furtherassessment. Telerad RADHA ([id number]) -------- FINAL REPORT -------- Dictated By: Olamide Reza Dictated Date: 04/18/2025 13:34 ET Assigned Physician: Olamide Reza Reviewed and Electronically Signed By: Olamide Reza Signed Date: 04/18/2025 14:01 ET Workstation ID: [id number] Transcribed By: Self Edit Transcribed Date: 04/18/2025 13:34 ET Vitaliy De MD IMG CT PROCEDURES Final Res ult from Last 3 Months Insurance MEDICARE [facility] Advance Directives Documents on File Type Date Recorded Patient Insurance Assistant Expl anation Health Care Decision (hx) 05/08/2022 [...] currently active code status orders. Care Teams Cvicu Rn Relationship Specialty Start Date End Date Dario Reed MD [address] [place] [address] [address] [place], [place] PCP - General Internal Medicine 04/02/22
--- OUTSIDE RECORDS SUMMARY | 2025-06-16 12:06 | XMS_ITS | Clinical Summary ---
Author Organization [facility], Address [address] [place] [address] [place] [address] Phone Care Team Providers Care Minesweeping Officer Name Role Phone Dario Reed MD Primary Care Provider [phone]- [phone] Medications losartan (Cozaar) 25 MG tablet Take [...] this topic Insurance Medicare Unicare Care Teams Minesweeping Officer Relationship Specialty Start Date End Date Dario Reed MD [address] [place] [id number] PCP - General Internal Medicine 01/30/23
--- OUTSIDE RECORDS SUMMARY | 2025-06-16 12:06 | XMS_ITS | Encounter Summary ---
Author Organization [facility] Prior to 11/26/[address] [place] [id number] Care Team Providers Care Battery Tester Field Name Role Phone Dario Reed MD Primary Care Provider [phone]- [phone] Encounter Details Date Type Department Care Team Description 06/27/2022 Social Work [facility] [address] [place] [address] [place], [facility] Social History Tobacco Use Types Packs/Day Years [...] on filedocumented in this encounter Care Teams Battery Tester Field Relationship Specialty Start Date End Date Dario Reed MD [address] [place] [address] [place] [address] PCP - General Internal Medicine 06/04/22 documented as of this encounter
== END 2025-06-16 11:47 | disposition home or self-care (01) ==
PROVIDERS: PCP Internal Medicine; Visit Provider Physician Assistant
DX: J11.1 Influenza due to unidentified influenza virus with other respiratory manifestations (principal)

== ENCOUNTER → 2025-06-16 11:32 | Outpatient (BNV) | payer MEDICARE, OTHER, SELFPAY | PROVIDERS: PCP Internal Medicine; Visit Provider Radiology Diagnostic Radiology | DX: J11.1 Influenza due to unidentified influenza virus with other respiratory manifestations (principal); J84.9 Interstitial pulmonary disease, unspecified | CPT/HCPCS: 71046 ==